=== PATIENT | female | born 1975 | race African-American/Black ===

== ENCOUNTER 2020-12-29 21:00 | Inpatient (IN) | payer OTHER ==
[~2020-12-29] VITALS: Ht 162.6 cm; Wt 53.2 kg
[~2020-12-29 21:00] MED LIST: FERR325T14 PO
[2020-12-29 21:15] VITALS: BP 116/76
[2020-12-29 21:30] VITALS: BP 116/76
[2020-12-29] MEDS ORDERED: OXYC1TAB22 PO (21:35)
[2020-12-29] MEDS ORDERED: AMLO-186 PO (21:35)
[2020-12-29] MEDS ORDERED: OXYC10TA46 PO (21:35)
[2020-12-29] MEDS ORDERED: MELO7.5T29 PO (21:35)
[2020-12-29 21:45] VITALS: BP 103/75
[2020-12-29 22:00] VITALS: BP 116/66
[2020-12-29 23:00] VITALS: BP 99/63
[2020-12-30] VITALS (13 sets, daily range): BP systolic 88–114; BP diastolic 54–73
[2020-12-30] MEDS: fentaNYL PF VIAL 100 MCG/2 ML VIAL IVP PRN ×2 (00:22→20:40)
--- NOTE | 2020-12-30 00:56 | NUR ---
Admission Note: Pt admitted to room 111 from [facility] after getting chest tube placed in R chest. Pt pleasant, alert and oriented x 4. Some pain at the chest tube insertion site. Ct to -20 suction, serosanguineous fluid. Gastric drain in place in right lower abdomen, per patient she drains it at home every 4-5 days. L SC Portacath accessed prior to arrival by [facility]. Dr. Keene notified of patients arrival and orders received.
[2020-12-30 06:10] LABS: BASO % 1 % (0-3); EOS # 0.1 x10^3/uL (0.0-0.7); EOS % 3 % (0-3); HEMATOCRIT 25.9 % (36.0-47.0); HEMOGLOBIN 8.6 g/dL (12.0-15.5); LYMPH # 0.3 x10^3/uL (1.0-4.8); LYMPH % 15 % (24-48); MEAN CORPUSCULAR HEMOGLOBIN 29 pg (25-35); MEAN CORPUSCULAR HGB CONC 33 g/dL (31-37); MEAN CORPUSCULAR VOLUME 88 fL (79-100); MONO # 0.2 x10^3/uL (0.0-1.1); MONO % 14 % (0-9); NEUT # 1.1 x10^3/uL (1.8-7.7); NEUT % 66 % (31-73); PLATELET COUNT 217 x10^3/uL (140-400); RED BLOOD COUNT 2.93 x10^6/uL (3.50-5.40); RED CELL DISTRIBUTION WIDTH 20.7 % (11.5-14.5)
[2020-12-30 06:15] LABS: WHITE BLOOD COUNT 1.7 x10^3/uL (4.0-11.0)
[2020-12-30 06:27] LABS: ALBUMIN/GLOBULIN RATIO 0.6 (1.0-1.7); CALCIUM 8.1 mg/dL (8.5-10.1); CREATININE 0.7 mg/dL (0.6-1.0); GFR 109.5; POTASSIUM 3.3 mmol/L (3.5-5.1); TOTAL BILIRUBIN 0.3 mg/dL (0.2-1.0); TOTAL PROTEIN 5.1 g/dL (6.4-8.2)
--- NOTE | 2020-12-30 08:25 | PDOC ---
PULMONARY PROGRESS NOTES DATE: 12/30/20 TIME: 08:24 Vitals Vital Signs Date Time Temp Pulse Resp B/P (MAP) Pulse Ox O2 Delivery O2 Flow Rate FiO2 12/30/20 07:00 94 18 99/62 (74) 97 Room Air 12/30/20 06:00 2.0 12/30/20 04:00 98.3 98.3 Labs Laboratory Tests Test 12/30/20 05:55 White Blood Count 1.7 x10^3/uL (4.0-11.0) Red Blood Count 2.93 x10^6/uL (3.50-5.40) Hemoglobin 8.6 g/dL (12.0-15.5) Hematocrit 25.9 % (36.0-47.0) Mean Corpuscular Volume 88 fL (79-100) Mean Corpuscular Hemoglobin 29 pg (25-35) Mean Corpuscular Hemoglobin Concent 33 g/dL (31-37) Red Cell Distribution Width 20.7 % (11.5-14.5) Platelet Count 217 x10^3/uL (140-400) Neutrophils (%) (Auto) 66 % (31-73) Lymphocytes (%) (Auto) 15 % (24-48) Monocytes (%) (Auto) 14 % (0-9) Eosinophils (%) (Auto) 3 % (0-3) Basophils (%) (Auto) 1 % (0-3) Neutrophils # (Auto) 1.1 x10^3/uL (1.8-7.7) Lymphocytes # (Auto) 0.3 x10^3/uL (1.0-4.8) Monocytes # (Auto) 0.2 x10^3/uL (0.0-1.1) Eosinophils # (Auto) 0.1 x10^3/uL (0.0-0.7) Basophils # (Auto) 0.0 x10^3/uL (0.0-0.2) Sodium Level 136 mmol/L (136-145) Potassium Level 3.3 mmol/L (3.5-5.1) Chloride Level 104 mmol/L (98-107) Carbon Dioxide Level 23 mmol/L (21-32) Anion Gap 9 (6-14) Blood Urea Nitrogen 15 mg/dL (7-20) Creatinine 0.7 mg/dL (0.6-1.0) Estimated GFR (Cockcroft-Gault) 109.5 BUN/Creatinine Ratio 21 (6-20) Glucose Level 92 mg/dL (70-99) Calcium Level 8.1 mg/dL (8.5-10.1) Total Bilirubin 0.3 mg/dL (0.2-1.0) Aspartate Amino Transf (AST/SGOT) 18 U/L (15-37) Alanine Aminotransferase (ALT/SGPT) 17 U/L (14-59) Alkaline Phosphatase 105 U/L (46-116) Total Protein 5.1 g/dL (6.4-8.2) Albumin 2.0 g/dL (3.4-5.0) Albumin/Globulin Ratio 0.6 (1.0-1.7) Laboratory Tests Test 12/30/20 05:55 White Blood Count 1.7 x10^3/uL (4.0-11.0) Red Blood Count 2.93 x10^6/uL (3.50-5.40) Hemoglobin 8.6 g/dL (12.0-15.5) Hematocrit 25.9 % (36.0-47.0) Mean Corpuscular Volume 88 fL (79-100) Mean Corpuscular Hemoglobin 29 pg (25-35) Mean Corpuscular Hemoglobin Concent 33 g/dL (31-37) Red Cell Distribution Width 20.7 % (11.5-14.5) Platelet Count 217 x10^3/uL (140-400) Neutrophils (%) (Auto) 66 % (31-73) Lymphocytes (%) (Auto) 15 % (24-48) Monocytes (%) (Auto) 14 % (0-9) Eosinophils (%) (Auto) 3 % (0-3) Basophils (%) (Auto) 1 % (0-3) Neutrophils # (Auto) 1.1 x10^3/uL (1.8-7.7) Lymphocytes # (Auto) 0.3 x10^3/uL (1.0-4.8) Monocytes # (Auto) 0.2 x10^3/uL (0.0-1.1) Eosinophils # (Auto) 0.1 x10^3/uL (0.0-0.7) Basophils # (Auto) 0.0 x10^3/uL (0.0-0.2) Sodium Level 136 mmol/L (136-145) Potassium Level 3.3 mmol/L (3.5-5.1) Chloride Level 104 mmol/L (98-107) Carbon Dioxide Level 23 mmol/L (21-32) Anion Gap 9 (6-14) Blood Urea Nitrogen 15 mg/dL (7-20) Creatinine 0.7 mg/dL (0.6-1.0) Estimated GFR (Cockcroft-Gault) 109.5 BUN/Creatinine Ratio 21 (6-20) Glucose Level 92 mg/dL (70-99) Calcium Level 8.1 mg/dL (8.5-10.1) Total Bilirubin 0.3 mg/dL (0.2-1.0) Aspartate Amino Transf (AST/SGOT) 18 U/L (15-37) Alanine Aminotransferase (ALT/SGPT) 17 U/L (14-59) Alkaline Phosphatase 105 U/L (46-116) Total Protein 5.1 g/dL (6.4-8.2) Albumin 2.0 g/dL (3.4-5.0) Albumin/Globulin Ratio 0.6 (1.0-1.7) Medications Active Scripts Medications Dose Route/Sig Max Daily Dose Days Date Category Percocet 10-325 Mg Tablet (Oxycodone/Acetaminophen) 1 Each Tablet 1 Tab PO PRN Q4-6HRS PRN MDD 6 Tablet(s) 5 12/29/20 Reported Oxycontin (Oxycodone HCl) 10 Mg Tab.er.12h 1 Tab PO PRN 2-3XD PRN MDD 3 Tablet(s) 30 12/29/20 Reported Amlodipine Besylate 5 Mg Tablet Unknown Dose PO DAILY 12/29/20 Reported Meloxicam 7.5 Mg Tablet Unknown Dose PO DAILY 30 12/29/20 Reported Ferrous Sulfate 325 Mg Tablet 1 Tab PO DAILY 10/16/13 Reported Impression . Full consult dictated See orders Discussed with Dr. Guzman Stage IV breast cancer ILENE NIEVES MD Dec 30, 2020 08:25
[2020-12-30] MEDS: oxyCODONE/APAP 10/325 1 TAB TABLET PO PRN ×3 (09:54→22:17)
[2020-12-30] MEDS: CEFEPIME HCL IV Push 1 GM VIAL. IVP SCH ×3 (10:34→22:16)
[2020-12-30 10:41] LABS: % EOS 3 % (0-5); % LYMPHS 14 % (24-48); % MONOS 14 % (0-10)
[2020-12-30 10:42] LABS: % SEGS 69 % (35-66); ANISOCYTOSIS MOD; PLT ESTIMATE ADEQUATE (ADEQUATE)
--- NOTE | 2020-12-30 10:42 | CONS ---
DATE OF CONSULTATION: 12/30/2020 ATTENDING PHYSICIAN: Naresh Keene MD CONSULTING PHYSICIAN: Lona Alfaro MD REASON FOR CONSULTATION: The patient is seen in Pulmonary consultation at the request of Dr. Keene for a CT chest revealing a large effusion, chest tube placement, history of breast cancer. HISTORY OF PRESENT ILLNESS: The patient is a 45-year-old who is somewhat of a poor historian. She has a history of breast cancer. She has had no surgery. She is receiving radiation. Apparently, she is currently undergoing chemotherapy at [facility]. She presented to [facility] with increasing shortness of breath. Chest x-ray confirmed a large left-sided effusion. Subsequently, the patient underwent a CT chest. I reviewed the CT chest, which revealed several findings including large pleural effusion. She had no evidence of pulmonary emboli. There was a large effusion with atelectasis. There were numerous hypodense lesions in the liver, favoring metastatic disease. There was intra-abdominal ascites. The patient is currently in the Intensive Care Unit at [facility]. She was transferred for management. She has a chest tube in place, which has drained approximately 1500 mL of fluid. She now feels better. She has a cough, mostly nonproductive. She states that she smoked right up until the day that she was diagnosed with breast cancer. PAST MEDICAL HISTORY: Suspect COPD, tobacco dependence, in remission, history of breast cancer, status post radiation and currently undergoing chemotherapy. She also has a history of neurofibromatosis. PAST SURGICAL HISTORY: No recent major surgeries. She now has a chest tube in place. REVIEW OF SYSTEMS: CONSTITUTIONAL: No fever or chills. EYES: No change in visual acuity. HENT: No nasal congestion or sore throat. PULMONARY: As indicated above. CARDIOVASCULAR: No chest pain, no pressure. GASTROINTESTINAL: No nausea, vomiting or diarrhea. GENITOURINARY: No dysuria or frequency. MUSCULOSKELETAL: No localized muscle aches or joint pains. SKIN: No new skin rashes. She has evidence of neurofibromatosis. NEUROLOGIC: The patient was awake, alert, following commands. A detailed neuro exam was not performed. MEDICATIONS: List was reviewed. ALLERGIES: No known drug allergies. FAMILY HISTORY: Noncontributory. PHYSICAL EXAMINATION: VITAL SIGNS: Stable. O2 saturation was greater than 92%, currently on room air saturation 97%. HEENT: Eyes: The sclerae were nonicteric. NECK: Jugular venous distention was not elevated. No lymphadenopathy. CHEST: Full expansion. LUNGS: Diminished breath sounds in the bases. No wheezes. CARDIOVASCULAR: Regular rate and rhythm with S1, S2, no S3. ABDOMEN: Soft. EXTREMITIES: No clubbing, cyanosis or edema. LABORATORY DATA: White count was low. Hemoglobin and hematocrit were noted to be low. Electrolytes were noted. BUN and creatinine were normal. Albumin was 2.0. IMPRESSION: 1. Acute hypoxemic respiratory failure secondary to malignant pleural effusion. 2. Malignant pleural effusion related to breast cancer, status post chest tube placement. 3. Stage 4 breast cancer. 4. Neurofibromatosis. 5. Leukopenia. 6. Hypokalemia. PLAN: 1. We will continue chest tube in place. Possible instillation of talc if pleural fluid drains less than 200 in 24 hours. 2. We will add Empiric antibiotics. 3. Replace potassium. 4. Above was discussed with Dr. Keene. In addition to the above, we will require old records from [facility]. PANCHO DR: Damián TID: [id number]
[2020-12-30 10:43] LABS: POLYCHROMASIA OCCASIONAL; TEAR DROP CELLS FEW
--- NOTE | 2020-12-30 10:45 | PN ---
DATE: 12/30/2020 SUBJECTIVE: The patient is resting almost flat in bed, in no apparent respiratory distress. She continued to have some chest discomfort, may take a deep breath, but denied any shortness of breath. Denied any cough or phlegm. Denied any chills, rigors or fever. PHYSICAL EXAMINATION: GENERAL: When I examined her, she was pale, but no jaundice, cyanosis, no lymphadenopathy, no thyromegaly, no jugular venous distention. No limb edema. VITAL SIGNS: Her heart rate was 94, blood pressure was 108/73, temperature was 98.8, respiratory rate was 16 and oxygen saturation was 96% on 2 liters of oxygen. HEAD, EYES, EARS, NOSE, AND THROAT: Normocephalic, atraumatic. NECK: Supple. HEART: Showed normal first and second heart sounds, no gallop or murmur. CHEST: Showed central trachea. Good chest expansion with air entry on the left side. Better air entry on the right side anteriorly. The patient continued to have dull percussion noted and absent breath sounds posteriorly. ABDOMEN: She has a chest tube on the right side and has also PleurX in her abdomen. The abdomen is distended with some tenderness in the right upper quadrant, no guarding or rigidity. No organomegaly. All hernial orifice intact. Bowel sounds normal. NEUROLOGIC: She was awake, alert, responding appropriately. Cranial nerves intact. She moves extremities without difficulty. She has SCDs in place. LABORATORY DATA: Her lab work this morning showed a white cell count of 1700, hemoglobin 8.6, hematocrit 25.9, MCV 88 and platelet count 217,000. Her serum sodium was 136, potassium 3.3, chloride 104, bicarbonate 23, anion gap of 9, BUN 15, creatinine 0.7. Estimated GFR was 109 mL per minute. Her glucose was 92, calcium was 8.1. Total bilirubin, AST, ALT, alkaline phosphatase were normal. Total protein was 5.1, albumin 2. ASSESSMENT: This is a 45-year-old -Greek female patient with stage 4 metastatic breast cancer with metastases to the bone and liver. 1. Large right sided pleural effusion, probably malignant as well as ascites which she has also PleurX. 2. Hypertension. 3. Neurofibromatosis. 4. She has history of DVT for which she has an IVC filter. Given the suspicion of perhaps infection and enhancement of the peritoneal fluid on the CT scan of the chest, abdomen and pelvis done at [facility], we drained some of the peritoneal fluid and send it for cell count, differential, body fluid protein and sugar as well as cytology. The patient was already seen by the supervisor baking. RAMSES DR: Dewey TID: [id number]
--- NOTE | 2020-12-30 11:08 | HP ---
DATE OF SERVICE: 12/30/2020 ADMIT DATE: 12/29/2020 HISTORY OF PRESENT ILLNESS: The patient is a 45-year-old -[place] female patient who presented to the Emergency Room of [facility] with a complaint of shortness of breath, cough with scanty whitish sputum, generalized weakness, chest discomfort, especially when she coughs or takes a deep breath. She denied any chest pain. Denied any fever or chills. She has breast cancer with metastases for which she is receiving chemotherapy at [facility] and the last time she received the treatment was a month ago. She was extensively evaluated in the Emergency Room of [facility], had lab work and imaging studies. Her chest x-ray showed that she has right basilar pleural drain that is internally placed. She has unchanged large right pleural effusion associated with collapsed right lung. No pneumothorax, similar diffuse left pulmonary infiltrate, no acute osseous process, partially visualized peritoneal dialysis catheter with the tip in the left upper abdomen. Her lab work showed that she has pancytopenia with leukopenia, normochromic normocytic anemia, although her platelet count are normal. She had had a chest tube placed by the ER physician and was transferred to [facility] for further evaluation and treatment. PAST MEDICAL HISTORY: Significant for: 1. Breast cancer with metastases, treated with chemotherapy. 2. Hypertension. 3. History of DVT for which she has an IVC filter placed and neurofibromatosis. PAST SURGICAL HISTORY: Significant for appendectomy, total abdominal hysterectomy without oophorectomy, also has an IVC filter placed. ALLERGIES: She has no known drug allergies. MEDICATIONS: She is currently on the following medication: She is on amlodipine and according to her, losartan. FAMILY HISTORY: Noncontributory. SOCIAL HISTORY: She is . She has 1 daughter who apparently also diagnosed with neurofibromatosis. She quit smoking 2 years ago. She does not drink alcohol or recreational drugs. She is currently on disability. She did work in restaurants and other facilities. REVIEW OF SYSTEMS: As per history of present illness. PHYSICAL EXAMINATION: GENERAL: On arrival to the Emergency Room, the patient looked pale, not cachectic, but no jaundice, cyanosis or thyromegaly. No jugular venous distention. No lower limb edema. VITAL SIGNS: Her heart rate was 90, blood pressure was 104/69, temperature was 98.7, respiratory rate was 20 and oxygen saturation was 99% on 2 liters of oxygen. HEAD, EYES, EARS, NOSE, AND THROAT: Showed normocephalic, atraumatic. NECK: Supple. HEART: Showed normal first and second heart sounds. No gallop, rub or murmur. CHEST: Showed central trachea, dull percussion noted and absent breath sounds on the right side. Good air entry. Chest expansion and vesicular breath sounds on the left side. ABDOMEN: Distended with mild tenderness in epigastric and right upper quadrant. There is no guarding or rigidity. No organomegaly. All hernial orifices are intact. Bowel sounds normal. NEUROLOGIC: She is awake, alert, responding appropriately. She moves all extremities without difficulty, although she has marked muscle wasting. SKIN: Showed that she has obvious neurofibromatosis with nodules all over her body including the face and upper and lower extremities and torso. LABORATORY DATA: Her lab work on arrival showed a white cell count of 3400, hemoglobin 9, hematocrit 29, MCV 90 and platelet count 229,000 with a manual differential showed 63% polymorphs, 18% lymphocytes and 15% monocytes. Her serum sodium was 134, potassium 3.8, chloride 101, bicarbonate 20, anion gap of 13, BUN 23, creatinine 1.1. Estimated GFR was 65 mL per minute. Her glucose was 101, calcium was 8.9, magnesium 2.3. Total bilirubin, AST, ALT were normal. Alkaline phosphatase are elevated. Her troponin was 5, total protein was 6.2, albumin was 2.9. Her chest x-ray showed the patient has right basilar pleural drain that is internally placed, unchanged large right-sided pleural effusion associated with collapsed right lung. No pneumothorax. Similar diffuse left pulmonary infiltrate. No acute osseous process, partially visualized peritoneal dialysis catheter with the tip in the left upper abdomen. She did have CT scan of the chest, abdomen and pelvis, which showed no pulmonary embolus identified within the main lobar or segmental pulmonary arteries. She has large right-sided pleural effusion causing complete atelectasis of the right lung. There is a small to moderate sized left pleural effusion with adjacent atelectasis. She has moderate amount of intraabdominal ascites with some mild peritoneal enhancement correlate for infection, findings of diffuse osseous metastatic disease. ASSESSMENT AND PLAN: The patient was started on IV levofloxacin and has had a chest tube placed successfully and was transferred to [facility] to consult the scientific illustrator for further evaluation and treatment. KAMI DR: Dewey TID: [id number]
[2020-12-30 15:12] LABS: BF CLARITY TURBID; BF COLOR YELLOW; BF PMN % 14 %; BF RBC COUNT 1061 /cmm (Not Established); BF SOURCE PERITONEAL; BF WBC COUNT 207 /cmm (Not Established)
[2020-12-30 15:27] LABS: BF MON % 86 %
--- NOTE | 2020-12-30 15:35 | NUR ---
SS following for discharge planning. SS reviewed pt chart and discussed with pt RN. pt is from home and is currently requiring oxygen at two liters nasal canula. Pulmonology following. Chest tube in place. Pt has cancer. Pt has peritoneal drain. Pt on IV Cefepime. SS will continue to follow for discharge planning.
--- NOTE | 2020-12-30 15:58 | NUR ---
Wound Care Wound Type/Assessment: Consult to eval and treat for toe wounds. Pt denies being diabetic. She has a skin condition causing skin tags all over her body. Pt states that sometimes the tags between her toes "get to acting up," meaning that they become moist and macerated and split the skin between her toes. There are 3 such wounds located between her R great/2nd, R 2nd/3rd, and L Great/2nd toes. Wounds pictured and measured. All wound bases are pale pink with minimal slough, moist and macerated at the periwound. No other wounds noted on head to toe assessment. Treatment Recommendations/Plan: To L and R affected toes: Apply strip of ioplex between toes, secure with gauze and tape. Change every other day Education provided: Pt educated to turn periodically to prevent skin breakdown. Advised to keep between toes dry. Offloading surface/device: ICU bed. Pt declined to be repositioned. 2 female family members at bedside. Recommended Referrals/Tests: NA Discharge Recommendations for dressings: As above
[2020-12-30] MEDS: POTASSIUM CHLORIDE 20 MEQ TABLET.ER. PO SCH ×2 (16:39→18:56)
[2020-12-31 03:27] LABS: HEMOGLOBIN 8.6 g/dL (12.0-15.5); RED BLOOD COUNT 2.95 x10^6/uL (3.50-5.40); RED CELL DISTRIBUTION WIDTH 20.4 % (11.5-14.5)
[2020-12-31 03:35] LABS: WHITE BLOOD COUNT 1.6 x10^3/uL (4.0-11.0)
[2020-12-31 03:36] VITALS: BP_SYST 105; BP_SYST 124; BP_DIAS 44; BP_DIAS 69
[2020-12-31] MEDS: oxyCODONE/APAP 10/325 1 TAB TABLET PO PRN ×2 (03:46→20:11)
[2020-12-31 03:55] LABS: ALBUMIN 1.8 g/dL (3.4-5.0); ALBUMIN/GLOBULIN RATIO 0.6 (1.0-1.7); CALCIUM 7.6 mg/dL (8.5-10.1); CREATININE 0.8 mg/dL (0.6-1.0); GFR 93.9; POTASSIUM 4.8 mmol/L (3.5-5.1); TOTAL BILIRUBIN 0.3 mg/dL (0.2-1.0); TOTAL PROTEIN 4.9 g/dL (6.4-8.2)
[2020-12-31] MEDS: CEFEPIME HCL IV Push 1 GM VIAL. IVP SCH ×3 (05:46→22:15)
--- NOTE | 2020-12-31 05:52 | PDOC ---
PULMONARY PROGRESS NOTES DATE: 12/31/20 TIME: 05:50 Subjective has chest wall pain no sob Vitals Vital Signs Date Time Temp Pulse Resp B/P (MAP) Pulse Ox O2 Delivery O2 Flow Rate FiO2 12/31/20 04:36 Nasal Cannula 2.0 12/31/20 03:36 97.9 85 16 105/69 (81) 93 97.9 ROS: No Nausea General: Alert HEENT: Other (nc at perrl ) Lungs: Other (r ct ) Cardiovascular: S1, S2 Abdomen: Soft Neuro Exam: Alert Extremities: No Edema Skin: Warm Labs Laboratory Tests Test 12/30/20 05:55 12/30/20 10:40 12/31/20 03:15 White Blood Count 1.7 x10^3/uL (4.0-11.0) 1.6 x10^3/uL (4.0-11.0) Red Blood Count 2.93 x10^6/uL (3.50-5.40) 2.95 x10^6/uL (3.50-5.40) Hemoglobin 8.6 g/dL (12.0-15.5) 8.6 g/dL (12.0-15.5) Hematocrit 25.9 % (36.0-47.0) 26.0 % (36.0-47.0) Mean Corpuscular Volume 88 fL (79-100) 88 fL (79-100) Mean Corpuscular Hemoglobin 29 pg (25-35) 29 pg (25-35) Mean Corpuscular Hemoglobin Concent 33 g/dL (31-37) 33 g/dL (31-37) Red Cell Distribution Width 20.7 % (11.5-14.5) 20.4 % (11.5-14.5) Platelet Count 217 x10^3/uL (140-400) 239 x10^3/uL (140-400) Neutrophils (%) (Auto) 66 % (31-73) Lymphocytes (%) (Auto) 15 % (24-48) Monocytes (%) (Auto) 14 % (0-9) Eosinophils (%) (Auto) 3 % (0-3) Basophils (%) (Auto) 1 % (0-3) Neutrophils # (Auto) 1.1 x10^3/uL (1.8-7.7) Lymphocytes # (Auto) 0.3 x10^3/uL (1.0-4.8) Monocytes # (Auto) 0.2 x10^3/uL (0.0-1.1) Eosinophils # (Auto) 0.1 x10^3/uL (0.0-0.7) Basophils # (Auto) 0.0 x10^3/uL (0.0-0.2) Segmented Neutrophils % 69 % (35-66) Lymphocytes % 14 % (24-48) Monocytes % 14 % (0-10) Eosinophils % 3 % (0-5) Platelet Estimate Adequate (ADEQUATE) Polychromasia Occasional Basophilic Stippling Present Anisocytosis Mod Tear Drop Cells Few Sodium Level 136 mmol/L (136-145) 138 mmol/L (136-145) Potassium Level 3.3 mmol/L (3.5-5.1) 4.8 mmol/L (3.5-5.1) Chloride Level 104 mmol/L (98-107) 108 mmol/L (98-107) Carbon Dioxide Level 23 mmol/L (21-32) 25 mmol/L (21-32) Anion Gap 9 (6-14) 5 (6-14) Blood Urea Nitrogen 15 mg/dL (7-20) 14 mg/dL (7-20) Creatinine 0.7 mg/dL (0.6-1.0) 0.8 mg/dL (0.6-1.0) Estimated GFR (Cockcroft-Gault) 109.5 93.9 BUN/Creatinine Ratio 21 (6-20) 18 (6-20) Glucose Level 92 mg/dL (70-99) 92 mg/dL (70-99) Calcium Level 8.1 mg/dL (8.5-10.1) 7.6 mg/dL (8.5-10.1) Total Bilirubin 0.3 mg/dL (0.2-1.0) 0.3 mg/dL (0.2-1.0) Aspartate Amino Transf (AST/SGOT) 18 U/L (15-37) 15 U/L (15-37) Alanine Aminotransferase (ALT/SGPT) 17 U/L (14-59) 13 U/L (14-59) Alkaline Phosphatase 105 U/L (46-116) 100 U/L (46-116) Total Protein 5.1 g/dL (6.4-8.2) 4.9 g/dL (6.4-8.2) Albumin 2.0 g/dL (3.4-5.0) 1.8 g/dL (3.4-5.0) Albumin/Globulin Ratio 0.6 (1.0-1.7) 0.6 (1.0-1.7) Body Fluid Source Peritoneal Body Fluid Color Yellow Body Fluid Clarity Turbid Body Fluid Nucleated Cells 207 /cmm (Not Established) Body Fluid Mononuclear WBCs (%) 86 % Body Fluid Polymorphonuclear Cells 14 % Body Fluid Total RBCs Counted 1061 /cmm (Not Established) Laboratory Tests Test 12/30/20 05:55 12/30/20 10:40 12/31/20 03:15 White Blood Count 1.7 x10^3/uL (4.0-11.0) 1.6 x10^3/uL (4.0-11.0) Red Blood Count 2.93 x10^6/uL (3.50-5.40) 2.95 x10^6/uL (3.50-5.40) Hemoglobin 8.6 g/dL (12.0-15.5) 8.6 g/dL (12.0-15.5) Hematocrit 25.9 % (36.0-47.0) 26.0 % (36.0-47.0) Mean Corpuscular Volume 88 fL (79-100) 88 fL (79-100) Mean Corpuscular Hemoglobin 29 pg (25-35) 29 pg (25-35) Mean Corpuscular Hemoglobin Concent 33 g/dL (31-37) 33 g/dL (31-37) Red Cell Distribution Width 20.7 % (11.5-14.5) 20.4 % (11.5-14.5) Platelet Count 217 x10^3/uL (140-400) 239 x10^3/uL (140-400) Neutrophils (%) (Auto) 66 % (31-73) Lymphocytes (%) (Auto) 15 % (24-48) Monocytes (%) (Auto) 14 % (0-9) Eosinophils (%) (Auto) 3 % (0-3) Basophils (%) (Auto) 1 % (0-3) Neutrophils # (Auto) 1.1 x10^3/uL (1.8-7.7) Lymphocytes # (Auto) 0.3 x10^3/uL (1.0-4.8) Monocytes # (Auto) 0.2 x10^3/uL (0.0-1.1) Eosinophils # (Auto) 0.1 x10^3/uL (0.0-0.7) Basophils # (Auto) 0.0 x10^3/uL (0.0-0.2) Segmented Neutrophils % 69 % (35-66) Lymphocytes % 14 % (24-48) Monocytes % 14 % (0-10) Eosinophils % 3 % (0-5) Platelet Estimate Adequate (ADEQUATE) Polychromasia Occasional Basophilic Stippling Present Anisocytosis Mod Tear Drop Cells Few Sodium Level 136 mmol/L (136-145) 138 mmol/L (136-145) Potassium Level 3.3 mmol/L (3.5-5.1) 4.8 mmol/L (3.5-5.1) Chloride Level 104 mmol/L (98-107) 108 mmol/L (98-107) Carbon Dioxide Level 23 mmol/L (21-32) 25 mmol/L (21-32) Anion Gap 9 (6-14) 5 (6-14) Blood Urea Nitrogen 15 mg/dL (7-20) 14 mg/dL (7-20) Creatinine 0.7 mg/dL (0.6-1.0) 0.8 mg/dL (0.6-1.0) Estimated GFR (Cockcroft-Gault) 109.5 93.9 BUN/Creatinine Ratio 21 (6-20) 18 (6-20) Glucose Level 92 mg/dL (70-99) 92 mg/dL (70-99) Calcium Level 8.1 mg/dL (8.5-10.1) 7.6 mg/dL (8.5-10.1) Total Bilirubin 0.3 mg/dL (0.2-1.0) 0.3 mg/dL (0.2-1.0) Aspartate Amino Transf (AST/SGOT) 18 U/L (15-37) 15 U/L (15-37) Alanine Aminotransferase (ALT/SGPT) 17 U/L (14-59) 13 U/L (14-59) Alkaline Phosphatase 105 U/L (46-116) 100 U/L (46-116) Total Protein 5.1 g/dL (6.4-8.2) 4.9 g/dL (6.4-8.2) Albumin 2.0 g/dL (3.4-5.0) 1.8 g/dL (3.4-5.0) Albumin/Globulin Ratio 0.6 (1.0-1.7) 0.6 (1.0-1.7) Body Fluid Source Peritoneal Body Fluid Color Yellow Body Fluid Clarity Turbid Body Fluid Nucleated Cells 207 /cmm (Not Established) Body Fluid Mononuclear WBCs (%) 86 % Body Fluid Polymorphonuclear Cells 14 % Body Fluid Total RBCs Counted 1061 /cmm (Not Established) Medications Active Scripts Medications Dose Route/Sig Max Daily Dose Days Date Category Percocet 10-325 Mg Tablet (Oxycodone/Acetaminophen) 1 Each Tablet 1 Tab PO PRN Q4-6HRS PRN MDD 6 Tablet(s) 5 12/29/20 Reported Oxycontin (Oxycodone HCl) 10 Mg Tab.er.12h 1 Tab PO PRN 2-3XD PRN MDD 3 Tablet(s) 30 12/29/20 Reported Amlodipine Besylate 5 Mg Tablet Unknown Dose PO DAILY 12/29/20 Reported Meloxicam 7.5 Mg Tablet Unknown Dose PO DAILY 30 12/29/20 Reported Ferrous Sulfate 325 Mg Tablet 1 Tab PO DAILY 10/16/13 Reported Comments cxr reviewed r ct small effusion Impression . IMPRESSION: 1. Acute hypoxemic respiratory failure secondary to malignant pleural effusion. 2. Malignant pleural effusion related to breast cancer, status post chest tube placement. 3. Stage 4 breast cancer. 4. Neurofibromatosis. 5. Leukopenia. 6. Hypokalemia. Plan . PLAN: 1. continue chest tube in place. ct drainage 200 cc talc when pleural fluid drains less than 200 2. Empiric antibiotics. 3. Replace potassium. 4. pain control Above was discussed with pt and QUIQUE Hassan MD Dec 31, 2020 05:52
--- NOTE | 2020-12-31 06:19 | RAD ---
XR CHEST 1V 12/31/2020 6:13 AM INDICATION: Shortness of breath, pleural effusion COMPARISON: 12/29/2020 TECHNIQUE: Portable frontal view of the chest is provided. FINDINGS: The cardiomediastinal silhouette is similar in appearance. There is significant improvement in right- sided pleural effusion with trace residual pleural fluid. Right-sided thoracostomy tube is in similar position. Left chest wall infusion port catheter is in similar position. There is a catheter identified projecting over the right hemiabdomen. There is an additional catheter identified projecting over the left upper quadrant abdomen. No new airspace consolidation. Mild jaqui hilar interstitial changes appears stable. No suspicious osseous abnormality. IMPRESSION: There is significant improvement in right-sided pleural effusion with trace residual right pleural ef fusion. No pneumothorax. Stable support tubes and lines. Electronically signed by: Kathie Steele MD (12/31/2020 6:17 AM) [facility]
[2020-12-31 07:00] VITALS: BP 95/60
--- NOTE | 2020-12-31 09:32 | PN ---
DATE: 12/31/2020 SUBJECTIVE: The patient is resting, slightly propped up in bed, in no apparent distress. On questioning her, she denied any shortness of breath, cough or phlegm. Did have chronic back pain. She continued to have right-sided chest tube to underwater seal. However, her chest x-ray showed that her right lung is completely expanded and all the pleural effusion has been completely drained. We sent also ascitic fluids for analysis which showed that the peritoneal fluid was yellow, turbid with total nucleated cells of 207, it's 6% were mononuclear wbc's and only 14% are polymorphonuclear, making peritonitis less likely. Her chemistry showed her potassium has improved to 4.8 and her CBC showed her white cell count is worsening. Her total white cell count is only 1600. She has normochromic normocytic anemia. Her platelets are normal. ASSESSMENT AND PLAN: 1. Stage 4 metastatic breast cancer, metastasis to the lung, to the bones and liver. 2. Large right sided pleural effusion, probably malignant as well as ascites, for which she has PleurX. 3. Hypertension. 4. Neurofibromatosis. 5. She has a history of DVT, for which she has an IVC filter. 6. Her right sided pleural effusion was completely drained. Her ascitic fluid did not show any evidence of peritonitis. However, her leukopenia is worsening and we did consult Dr. Rios to assist with management. We will send also the ascitic fluids for malignancy. RAMSES DR: Dewye TID: [id number]
[2020-12-31 11:00] VITALS: BP 102/66
[2020-12-31 14:00] VITALS: BP 117/76
[2020-12-31 19:00] VITALS: BP 114/80
[2020-12-31 23:00] VITALS: BP 101/69
[2021-01-01 03:00] VITALS: BP 103/42
[2021-01-01] MEDS: CEFEPIME HCL IV Push 1 GM VIAL. IVP SCH ×3 (06:31→22:39)
--- NOTE | 2021-01-01 06:37 | PDOC ---
PULMONARY PROGRESS NOTES DATE: 01/01/21 TIME: 06:35 Subjective denies sob pain is tired ct drainage a little over 200cc marked ct drainage on pleurovac yesterday Vitals Vital Signs Date Time Temp Pulse Resp B/P (MAP) Pulse Ox O2 Delivery O2 Flow Rate FiO2 01/01/21 03:00 97.9 76 18 103/42 (62) 97 97.9 12/31/20 20:41 Room Air 12/31/20 08:00 2.0 ROS: No Nausea General: Alert HEENT: Other (nc at perr ) Lungs: Other (r ct ) Cardiovascular: S1, S2 Abdomen: Soft Neuro Exam: Alert Extremities: No Edema Skin: Warm Labs Laboratory Tests Test 12/30/20 10:40 12/31/20 03:15 Body Fluid Source Peritoneal Body Fluid Color Yellow Body Fluid Clarity Turbid Body Fluid Nucleated Cells 207 /cmm (Not Established) Body Fluid Mononuclear WBCs (%) 86 % Body Fluid Polymorphonuclear Cells 14 % Body Fluid Total RBCs Counted 1061 /cmm (Not Established) Body Fluid Glucose 86 mg/dL (.) Body Fluid Total Protein 3.2 g/dL (.) White Blood Count 1.6 x10^3/uL (4.0-11.0) Red Blood Count 2.95 x10^6/uL (3.50-5.40) Hemoglobin 8.6 g/dL (12.0-15.5) Hematocrit 26.0 % (36.0-47.0) Mean Corpuscular Volume 88 fL (79-100) Mean Corpuscular Hemoglobin 29 pg (25-35) Mean Corpuscular Hemoglobin Concent 33 g/dL (31-37) Red Cell Distribution Width 20.4 % (11.5-14.5) Platelet Count 239 x10^3/uL (140-400) Sodium Level 138 mmol/L (136-145) Potassium Level 4.8 mmol/L (3.5-5.1) Chloride Level 108 mmol/L (98-107) Carbon Dioxide Level 25 mmol/L (21-32) Anion Gap 5 (6-14) Blood Urea Nitrogen 14 mg/dL (7-20) Creatinine 0.8 mg/dL (0.6-1.0) Estimated GFR (Cockcroft-Gault) 93.9 BUN/Creatinine Ratio 18 (6-20) Glucose Level 92 mg/dL (70-99) Calcium Level 7.6 mg/dL (8.5-10.1) Total Bilirubin 0.3 mg/dL (0.2-1.0) Aspartate Amino Transf (AST/SGOT) 15 U/L (15-37) Alanine Aminotransferase (ALT/SGPT) 13 U/L (14-59) Alkaline Phosphatase 100 U/L (46-116) Total Protein 4.9 g/dL (6.4-8.2) Albumin 1.8 g/dL (3.4-5.0) Albumin/Globulin Ratio 0.6 (1.0-1.7) Medications Active Scripts Medications Dose Route/Sig Max Daily Dose Days Date Category Percocet 10-325 Mg Tablet (Oxycodone/Acetaminophen) 1 Each Tablet 1 Tab PO PRN Q4-6HRS PRN MDD 6 Tablet(s) 5 12/29/20 Reported Oxycontin (Oxycodone HCl) 10 Mg Tab.er.12h 1 Tab PO PRN 2-3XD PRN MDD 3 Tablet(s) 30 12/29/20 Reported Amlodipine Besylate 5 Mg Tablet Unknown Dose PO DAILY 12/29/20 Reported Meloxicam 7.5 Mg Tablet Unknown Dose PO DAILY 30 12/29/20 Reported Ferrous Sulfate 325 Mg Tablet 1 Tab PO DAILY 10/16/13 Reported Comments cxr reviewed r ct small effusion Impression . IMPRESSION: 1. Acute hypoxemic respiratory failure secondary to malignant pleural effusion. 2. Malignant pleural effusion related to breast cancer, status post chest tube placement. 3. Stage 4 breast cancer. 4. Neurofibromatosis. 5. Leukopenia. 6. Hypokalemia. Plan . 01/01 1. continue chest tube in place. ct drainage a little over [address] tubing was kinked corrected w the help of rn and taped talc when pleural fluid drains less than 200 2. Empiric antibiotics. 3. Replace potassium. 4. pain control Above was discussed with pt and rn PLAN: 1. continue chest tube in place. ct drainage 200 cc talc when pleural fluid drains less than 200 2. Empiric antibiotics. 3. Replace potassium. 4. pain control Above was discussed with pt and rn QUIQUE NARVAEZ MD Jan 01, 2021 06:36
[2021-01-01 07:00] VITALS: BP 118/81
--- NOTE | 2021-01-01 07:44 | RAD ---
INDICATION: Reason: effusion / Spl. Instructions: / History: COMPARISON: One day prior FINDINGS: Single view of chest obtained. Left-sided port with tip at the SVC. Partial visualization of a drain at the upper abdomen. Repeat de monstration of right basilar chest tube with blunting of right costophrenic angle which can be seen w ith small residual pleural effusion but significantly decreased when compared to December 29 prior to chest tube placement. Patchy opacities at lung bases. Suspected tiny right apical pneumothorax. Mild blunting of the left costophrenic angle. IMPRESSION: * Right-sided chest tube is again seen with significant decrease in right-sided pleural effusion com pared to preprocedure images. Suspected tiny right apical pneumothorax but this is a common finding w ith an indwelling chest tube and is not of significant size. * Patchy opacities at lung bases which appears increased on the left compared to prior. Could be fro m atelectasis or infiltrate. * Sclerotic lesions within osseous structures again seen Electronically signed by: Brad Michelle MD (01/01/2021 7:42 AM) [id number]
[2021-01-01] MEDS: oxyCODONE/APAP 10/325 1 TAB TABLET PO PRN ×2 (07:50→18:51)
[2021-01-01 07:52] LABS: CALCIUM 7.6 mg/dL (8.5-10.1); CREATININE 0.7 mg/dL (0.6-1.0); GFR 109.5; POTASSIUM 4.1 mmol/L (3.5-5.1)
--- NOTE | 2021-01-01 09:19 | PN ---
DATE: 01/01/2021 SUBJECTIVE: The patient is resting, slightly propped up in bed, in no apparent distress. She is awake, alert. Denied any chest pain or shortness of breath. She does have chronic low back pain and stated that pain medications are helping. Nursing staff did not voice any concerns that she had an uneventful night when chest tube continued to drain yellow, clear fluid. PHYSICAL EXAMINATION: GENERAL: When I examined her, she looked well and was clearly in no apparent respiratory distress. She was pale, not jaundiced, cyanosed or thyromegaly. No jugular venous distention. No lower limb edema. VITAL SIGNS: Her heart rate was 90, blood pressure is 118/81, temperature was 98.3, respiratory rate was 18 and oxygen saturation was 94%. HEAD, EYES, EARS, NOSE, AND THROAT: Normocephalic, atraumatic. NECK: Supple. HEART: Normal first and second heart sounds, no gallop or murmur. CHEST: Showed central trachea, equal bilateral expansion, air entry, vesicular breath sounds. No crepitation or rhonchi. She has chest tube to the right side. ABDOMEN: Distended, soft, nontender. She does have a PleurX in the right upper quadrant. There is no guarding or rigidity. No organomegaly. All hernial orifice intact. Bowel sounds normal. NEUROLOGIC: She was awake, alert, responding appropriately. All cranial nerves intact. She moves extremities without difficulty. SKIN: Her skin shows multiple nodules consistent with her diagnosis of neurofibromatosis. Her intake was 720, output was 1150. LABORATORY DATA: Today's CBC is still pending. Her serum sodium was, however, is 137, potassium 4.1, chloride 106, bicarbonate 23, anion gap of 8, BUN 8, creatinine 0.7. Estimated GFR was 190 mL per minute. Her glucose was 78 and calcium was 7.6. Her ascitic fluid consistent with transudate with no evidence of peritonitis. Her ascitic fluid Gram stain showed no organisms seen. ASSESSMENT: 1. Stage 4 metastatic breast cancer, metastasis to the lungs, to the bone and liver. 2. Large right side pleural effusion, probably malignant as well as ascites, for which she has PleurX. 3. Hypertension. 4. Neurofibromatosis. 5. She has a history of deep venous thrombosis, for which she has an IVC filter. 6. Right-sided pleural effusion has completely drained. Her ascitic fluid did not show any evidence of peritonitis and is transudative in nature. 7. She continued to have leukopenia that is worsening on today's labs, still pending at the time of this dictation. I did consult the Dr. Rios to assist with her management. Plan is to continue with a chest tube, continue with pain management. Continue with empiric antibiotics. GAVIN DR: Dewey TID: [id number]
[2021-01-01 11:28] LABS: BASO % 1 % (0-3); EOS # 0.1 x10^3/uL (0.0-0.7); EOS % 3 % (0-3); HEMATOCRIT 28.2 % (36.0-47.0); HEMOGLOBIN 9.4 g/dL (12.0-15.5); LYMPH # 0.3 x10^3/uL (1.0-4.8); LYMPH % 16 % (24-48); MEAN CORPUSCULAR HEMOGLOBIN 30 pg (25-35); MEAN CORPUSCULAR HGB CONC 33 g/dL (31-37); MEAN CORPUSCULAR VOLUME 88 fL (79-100); MONO # 0.3 x10^3/uL (0.0-1.1); MONO % 17 % (0-9); NEUT # 1.1 x10^3/uL (1.8-7.7); NEUT % 62 % (31-73); PLATELET COUNT 258 x10^3/uL (140-400); RED BLOOD COUNT 3.19 x10^6/uL (3.50-5.40); RED CELL DISTRIBUTION WIDTH 20.6 % (11.5-14.5)
[2021-01-01 11:37] LABS: WHITE BLOOD COUNT 1.8 x10^3/uL (4.0-11.0)
[2021-01-01 15:00] VITALS: BP 138/93
[2021-01-01 19:00] VITALS: BP 115/83
[2021-01-01 22:43] VITALS: BP 119/80
[2021-01-02 03:00] VITALS: BP 122/80
[2021-01-02] MEDS: CEFEPIME HCL IV Push 1 GM VIAL. IVP SCH ×3 (06:01→21:00)
[2021-01-02] MEDS: oxyCODONE/APAP 10/325 1 TAB TABLET PO PRN ×3 (06:11→21:14)
[2021-01-02 07:00] VITALS: BP 112/78
[2021-01-02 07:13] LABS: BASO % 2 % (0-3); EOS # 0.1 x10^3/uL (0.0-0.7); EOS % 4 % (0-3); HEMATOCRIT 28.8 % (36.0-47.0); HEMOGLOBIN 9.6 g/dL (12.0-15.5); LYMPH # 0.3 x10^3/uL (1.0-4.8); LYMPH % 20 % (24-48); MEAN CORPUSCULAR HEMOGLOBIN 29 pg (25-35); MEAN CORPUSCULAR HGB CONC 33 g/dL (31-37); MEAN CORPUSCULAR VOLUME 88 fL (79-100); MONO # 0.3 x10^3/uL (0.0-1.1); MONO % 21 % (0-9); NEUT # 0.8 x10^3/uL (1.8-7.7); NEUT % 53 % (31-73); PLATELET COUNT 259 x10^3/uL (140-400); RED BLOOD COUNT 3.26 x10^6/uL (3.50-5.40); RED CELL DISTRIBUTION WIDTH 20.9 % (11.5-14.5)
[2021-01-02 07:32] LABS: WHITE BLOOD COUNT 1.6 x10^3/uL (4.0-11.0)
--- NOTE | 2021-01-02 08:20 | RAD ---
EXAM: AP View of the chest DATE: 01/02/2021 7:31 AM INDICATION: Right pleural effusion COMPARISON: 01/01/2021 12/31/2020 FINDINGS: The heart is not enlarged. Left port tip terminates within the distal SVC/proximal right atrium. Righ t chest tube is in stable position. Small right pleural effusion. Trace left pleural effusion. Bilate ral lower lung airspace opacities are stable. Drain is seen in the upper abdomen. Scattered sclerotic foci within the osseous structures. IMPRESSION: 1. Bilateral parenchymal opacities and pleural effusions are grossly stable. 2. Support lines and tubes are grossly stable. 3. Scattered sclerotic foci within the osseous structures, bone metastases. Electronically signed by: Cas Rehman MD (01/02/2021 8:17 AM) [facility]
--- NOTE | 2021-01-02 09:07 | PN ---
DATE: 01/02/2021 SUBJECTIVE: The patient is resting, slightly propped up in bed, in no apparent distress, awake, alert. On questioning her, denied any complaint. Nursing staff did not voice any concerns, stated that she had an uneventful night. The drainage from the right chest was less than 100 this morning. She continued to have leukopenia and we did consult Dr. Rios to see her. PHYSICAL EXAMINATION: GENERAL: When I examined her, she was pale, somewhat cachectic, but not jaundiced, cyanosed, no lymphadenopathy, no thyromegaly, no jugular venous distention. No limb edema. VITAL SIGNS: Her heart rate was 68, blood pressure is 112/78, temperature was 98.4, respiratory rate was 16 and oxygen saturation was 94%. The rest of the clinical exam stable, has not changed. Her intake was 720, output was 1150. LABORATORY DATA: As of this morning showed a white cell count of 1600, hemoglobin 9.6, hematocrit 28.8, MCV 88 and platelet count 259,000 with automated differential showed 53% polymorphs, 20% lymphocytes and 21% monocytes. Her chemistry showed a serum sodium 137, potassium 4.1, chloride 106, bicarbonate 23, anion gap of 8, BUN 8, creatinine 0.7. Estimated GFR was 109 mL per minute. Her glucose was 78 and calcium was 7.6. ASSESSMENT: 1. Stage 4 metastatic breast cancer with metastasis to liver and bone. 2. Large right-sided pleural effusion, probably malignant as well as ascites for which she has a PleurX. She has a chest tube, the right hemithorax with very little drainage today. 3. Hypertension. 4. Neurofibromatosis. 5. She does have history of deep vein thrombosis, which has an IVC filter. 6. Right-sided pleural effusion was completely drained. Her ascitic fluid did not show any evidence of peritonitis that is transudative in nature. 7. She continued to have leukopenia that is worsening. Today's white cell count was 1600, which 50% were polymorphs; however, the patient continued to be afebrile. We did consult Dr. Rios to assist with management. 8. Apparently, the examiner of currency will consider pleurodesis once her drainage from the chest tube was less than 200. HOANG/ZINA DR: Dewey TID: [id number]
--- NOTE | 2021-01-02 10:36 | NUR ---
SW following. Discussed with RN, pt from home, room air, neutropenic diet. Chest tube in place, possible clamping soon. Oncology following. RN advised no SW needs at this time. SW will continue to follow.
--- NOTE | 2021-01-02 10:43 | PDOC ---
PULMONARY PROGRESS NOTES DATE: 01/02/21 TIME: 10:41 Subjective denies sob pain is tired ct drainage less than 200cc Vitals Vital Signs Date Time Temp Pulse Resp B/P (MAP) Pulse Ox O2 Delivery O2 Flow Rate FiO2 01/02/21 07:00 98.4 68 16 112/78 (89) 94 Room Air 98.4 01/01/21 08:00 2.0 ROS: No Nausea General: Alert HEENT: Other (nc at perrl ) Lungs: Other (r ct ) Cardiovascular: S1, S2 Abdomen: Soft Neuro Exam: Alert Extremities: No Edema Skin: Warm Labs Laboratory Tests Test 01/01/21 05:40 01/01/21 10:35 01/02/21 06:10 Sodium Level 137 mmol/L (136-145) Potassium Level 4.1 mmol/L (3.5-5.1) Chloride Level 106 mmol/L (98-107) Carbon Dioxide Level 23 mmol/L (21-32) Anion Gap 8 (6-14) Blood Urea Nitrogen 8 mg/dL (7-20) Creatinine 0.7 mg/dL (0.6-1.0) Estimated GFR (Cockcroft-Gault) 109.5 Glucose Level 78 mg/dL (70-99) Calcium Level 7.6 mg/dL (8.5-10.1) White Blood Count 1.8 x10^3/uL (4.0-11.0) 1.6 x10^3/uL (4.0-11.0) Red Blood Count 3.19 x10^6/uL (3.50-5.40) 3.26 x10^6/uL (3.50-5.40) Hemoglobin 9.4 g/dL (12.0-15.5) 9.6 g/dL (12.0-15.5) Hematocrit 28.2 % (36.0-47.0) 28.8 % (36.0-47.0) Mean Corpuscular Volume 88 fL (79-100) 88 fL (79-100) Mean Corpuscular Hemoglobin 30 pg (25-35) 29 pg (25-35) Mean Corpuscular Hemoglobin Concent 33 g/dL (31-37) 33 g/dL (31-37) Red Cell Distribution Width 20.6 % (11.5-14.5) 20.9 % (11.5-14.5) Platelet Count 258 x10^3/uL (140-400) 259 x10^3/uL (140-400) Neutrophils (%) (Auto) 62 % (31-73) 53 % (31-73) Lymphocytes (%) (Auto) 16 % (24-48) 20 % (24-48) Monocytes (%) (Auto) 17 % (0-9) 21 % (0-9) Eosinophils (%) (Auto) 3 % (0-3) 4 % (0-3) Basophils (%) (Auto) 1 % (0-3) 2 % (0-3) Neutrophils # (Auto) 1.1 x10^3/uL (1.8-7.7) 0.8 x10^3/uL (1.8-7.7) Lymphocytes # (Auto) 0.3 x10^3/uL (1.0-4.8) 0.3 x10^3/uL (1.0-4.8) Monocytes # (Auto) 0.3 x10^3/uL (0.0-1.1) 0.3 x10^3/uL (0.0-1.1) Eosinophils # (Auto) 0.1 x10^3/uL (0.0-0.7) 0.1 x10^3/uL (0.0-0.7) Basophils # (Auto) 0.0 x10^3/uL (0.0-0.2) 0.0 x10^3/uL (0.0-0.2) Laboratory Tests Test 01/02/21 06:10 White Blood Count 1.6 x10^3/uL (4.0-11.0) Red Blood Count 3.26 x10^6/uL (3.50-5.40) Hemoglobin 9.6 g/dL (12.0-15.5) Hematocrit 28.8 % (36.0-47.0) Mean Corpuscular Volume 88 fL (79-100) Mean Corpuscular Hemoglobin 29 pg (25-35) Mean Corpuscular Hemoglobin Concent 33 g/dL (31-37) Red Cell Distribution Width 20.9 % (11.5-14.5) Platelet Count 259 x10^3/uL (140-400) Neutrophils (%) (Auto) 53 % (31-73) Lymphocytes (%) (Auto) 20 % (24-48) Monocytes (%) (Auto) 21 % (0-9) Eosinophils (%) (Auto) 4 % (0-3) Basophils (%) (Auto) 2 % (0-3) Neutrophils # (Auto) 0.8 x10^3/uL (1.8-7.7) Lymphocytes # (Auto) 0.3 x10^3/uL (1.0-4.8) Monocytes # (Auto) 0.3 x10^3/uL (0.0-1.1) Eosinophils # (Auto) 0.1 x10^3/uL (0.0-0.7) Basophils # (Auto) 0.0 x10^3/uL (0.0-0.2) Medications Active Scripts Medications Dose Route/Sig Max Daily Dose Days Date Category Percocet 10-325 Mg Tablet (Oxycodone/Acetaminophen) 1 Each Tablet 1 Tab PO PRN Q4-6HRS PRN MDD 6 Tablet(s) 5 12/29/20 Reported Oxycontin (Oxycodone HCl) 10 Mg Tab.er.12h 1 Tab PO PRN 2-3XD PRN MDD 3 Tablet(s) 30 12/29/20 Reported Amlodipine Besylate 5 Mg Tablet Unknown Dose PO DAILY 12/29/20 Reported Meloxicam 7.5 Mg Tablet Unknown Dose PO DAILY 30 12/29/20 Reported Ferrous Sulfate 325 Mg Tablet 1 Tab PO DAILY 10/16/13 Reported Comments Chest x-ray reviewed dated January 02, 2021 Small right-sided pleural effusion with some interstitial changes Impression . IMPRESSION: 1. Acute hypoxemic respiratory failure secondary to malignant pleural effusion. 2. Malignant pleural effusion related to breast cancer, status post chest tube placement. 3. Stage 4 breast cancer. 4. Neurofibromatosis. 5. Leukopenia. 6. Hypokalemia. Plan . 01/02 1. continue chest tube in place. Talc may not be effective. She would be a better candidate for Pleurx catheter. Patient already has a Pleurx catheter in her abdominal wall secondary to malignancy. All her care has been at . She prefers to have the procedure done at . 2. Empiric antibiotics. 3. Replace potassium. 4. pain control 5. Hematology recommendations regarding leukopenia. 6. I have discussed with patient's RN. I will remove the chest tube when she is ready to be discharged. She can have a follow-up at and have a Pleurx catheter done there. 01/01 1. continue chest tube in place. ct drainage a little over [address] tubing was kinked corrected w the help of rn and taped talc when pleural fluid drains less than 200 2. Empiric antibiotics. 3. Replace potassium. 4. pain control Above was discussed with pt and rn PLAN: 1. continue chest tube in place. ct drainage 200 cc talc when pleural fluid drains less than 200 2. Empiric antibiotics. 3. Replace potassium. 4. pain control Above was discussed with pt and rn BLANK RUDD MD Jan 02, 2021 10:43
[2021-01-02 11:00] VITALS: BP 103/73
[2021-01-02] MEDS: fentaNYL PF VIAL 100 MCG/2 ML VIAL IVP PRN (13:13)
[2021-01-02 15:00] VITALS: BP 109/85
[2021-01-02 19:00] VITALS: BP 111/76
[2021-01-02 23:00] VITALS: BP 115/83
[2021-01-03 03:27] VITALS: BP 120/83
[2021-01-03] MEDS: CEFEPIME HCL IV Push 1 GM VIAL. IVP SCH ×3 (05:47→21:24)
[2021-01-03] MEDS: oxyCODONE/APAP 10/325 1 TAB TABLET PO PRN ×3 (05:49→21:43)
[2021-01-03 07:00] VITALS: BP 118/78
--- NOTE | 2021-01-03 08:42 | RAD ---
EXAM: AP View of the chest DATE: 01/03/2021 8:04 AM INDICATION: Reason: effusion / Spl. Instructions: / History: COMPARISON: No Prior FINDINGS: Right chest tube and left port are in stable position. Bilateral parenchymal airspace opacities and s mall right pleural effusion are stable. The heart is not enlarged. Mediastinal and hilar contours are stable. Heterogeneous bony sclerotic lesions, metastasis. IMPRESSION: 1. Heterogeneous bony sclerotic lesions, metastasis. 2. Support lines and tubes are stable. 3. Bilateral parenchymal opacities are stable. Electronically signed by: Cas Rehman MD (01/03/2021 8:39 AM) [id number]
[2021-01-03 09:43] LABS: BASO % 2 % (0-3); EOS # 0.1 x10^3/uL (0.0-0.7); EOS % 4 % (0-3); HEMATOCRIT 29.1 % (36.0-47.0); HEMOGLOBIN 9.8 g/dL (12.0-15.5); LYMPH # 0.3 x10^3/uL (1.0-4.8); LYMPH % 22 % (24-48); MEAN CORPUSCULAR HEMOGLOBIN 30 pg (25-35); MEAN CORPUSCULAR HGB CONC 34 g/dL (31-37); MEAN CORPUSCULAR VOLUME 88 fL (79-100); MONO # 0.4 x10^3/uL (0.0-1.1); MONO % 23 % (0-9); NEUT # 0.8 x10^3/uL (1.8-7.7); NEUT % 49 % (31-73); PLATELET COUNT 253 x10^3/uL (140-400); RED BLOOD COUNT 3.32 x10^6/uL (3.50-5.40); RED CELL DISTRIBUTION WIDTH 20.2 % (11.5-14.5)
[2021-01-03 09:47] LABS: CALCIUM 7.7 mg/dL (8.5-10.1); CREATININE 0.5 mg/dL (0.6-1.0); GFR 161.4; POTASSIUM 3.4 mmol/L (3.5-5.1)
[2021-01-03 09:55] LABS: ALBUMIN/GLOBULIN RATIO 0.6 (1.0-1.7); TOTAL BILIRUBIN 0.4 mg/dL (0.2-1.0); TOTAL PROTEIN 5.4 g/dL (6.4-8.2)
[2021-01-03 09:58] LABS: WHITE BLOOD COUNT 1.6 x10^3/uL (4.0-11.0)
[2021-01-03 11:00] VITALS: BP 111/73
--- NOTE | 2021-01-03 12:23 | PDOC ---
PULMONARY PROGRESS NOTES DATE: 01/03/21 TIME: 12:21 Subjective denies sob pain is tired ct drainage less than 200cc Vitals Vital Signs Date Time Temp Pulse Resp B/P (MAP) Pulse Ox O2 Delivery O2 Flow Rate FiO2 01/03/21 11:00 98.2 87 16 111/73 (86) 94 Room Air 98.2 01/02/21 23:00 2.0 ROS: No Nausea General: Alert HEENT: Other (nc at perrl ) Lungs: Other (r ct ) Cardiovascular: S1, S2 Abdomen: Soft Neuro Exam: Alert Extremities: No Edema Skin: Warm Labs Laboratory Tests Test 01/02/21 06:10 01/03/21 09:25 White Blood Count 1.6 x10^3/uL (4.0-11.0) 1.6 x10^3/uL (4.0-11.0) Red Blood Count 3.26 x10^6/uL (3.50-5.40) 3.32 x10^6/uL (3.50-5.40) Hemoglobin 9.6 g/dL (12.0-15.5) 9.8 g/dL (12.0-15.5) Hematocrit 28.8 % (36.0-47.0) 29.1 % (36.0-47.0) Mean Corpuscular Volume 88 fL (79-100) 88 fL (79-100) Mean Corpuscular Hemoglobin 29 pg (25-35) 30 pg (25-35) Mean Corpuscular Hemoglobin Concent 33 g/dL (31-37) 34 g/dL (31-37) Red Cell Distribution Width 20.9 % (11.5-14.5) 20.2 % (11.5-14.5) Platelet Count 259 x10^3/uL (140-400) 253 x10^3/uL (140-400) Neutrophils (%) (Auto) 53 % (31-73) 49 % (31-73) Lymphocytes (%) (Auto) 20 % (24-48) 22 % (24-48) Monocytes (%) (Auto) 21 % (0-9) 23 % (0-9) Eosinophils (%) (Auto) 4 % (0-3) 4 % (0-3) Basophils (%) (Auto) 2 % (0-3) 2 % (0-3) Neutrophils # (Auto) 0.8 x10^3/uL (1.8-7.7) 0.8 x10^3/uL (1.8-7.7) Lymphocytes # (Auto) 0.3 x10^3/uL (1.0-4.8) 0.3 x10^3/uL (1.0-4.8) Monocytes # (Auto) 0.3 x10^3/uL (0.0-1.1) 0.4 x10^3/uL (0.0-1.1) Eosinophils # (Auto) 0.1 x10^3/uL (0.0-0.7) 0.1 x10^3/uL (0.0-0.7) Basophils # (Auto) 0.0 x10^3/uL (0.0-0.2) 0.0 x10^3/uL (0.0-0.2) Sodium Level 137 mmol/L (136-145) Potassium Level 3.4 mmol/L (3.5-5.1) Chloride Level 104 mmol/L (98-107) Carbon Dioxide Level 26 mmol/L (21-32) Anion Gap 7 (6-14) Blood Urea Nitrogen 7 mg/dL (7-20) Creatinine 0.5 mg/dL (0.6-1.0) Estimated GFR (Cockcroft-Gault) 161.4 BUN/Creatinine Ratio 14 (6-20) Glucose Level 120 mg/dL (70-99) Calcium Level 7.7 mg/dL (8.5-10.1) Total Bilirubin 0.4 mg/dL (0.2-1.0) Aspartate Amino Transf (AST/SGOT) 18 U/L (15-37) Alanine Aminotransferase (ALT/SGPT) 18 U/L (14-59) Alkaline Phosphatase 111 U/L (46-116) Total Protein 5.4 g/dL (6.4-8.2) Albumin 2.0 g/dL (3.4-5.0) Albumin/Globulin Ratio 0.6 (1.0-1.7) Laboratory Tests Test 01/03/21 09:25 White Blood Count 1.6 x10^3/uL (4.0-11.0) Red Blood Count 3.32 x10^6/uL (3.50-5.40) Hemoglobin 9.8 g/dL (12.0-15.5) Hematocrit 29.1 % (36.0-47.0) Mean Corpuscular Volume 88 fL (79-100) Mean Corpuscular Hemoglobin 30 pg (25-35) Mean Corpuscular Hemoglobin Concent 34 g/dL (31-37) Red Cell Distribution Width 20.2 % (11.5-14.5) Platelet Count 253 x10^3/uL (140-400) Neutrophils (%) (Auto) 49 % (31-73) Lymphocytes (%) (Auto) 22 % (24-48) Monocytes (%) (Auto) 23 % (0-9) Eosinophils (%) (Auto) 4 % (0-3) Basophils (%) (Auto) 2 % (0-3) Neutrophils # (Auto) 0.8 x10^3/uL (1.8-7.7) Lymphocytes # (Auto) 0.3 x10^3/uL (1.0-4.8) Monocytes # (Auto) 0.4 x10^3/uL (0.0-1.1) Eosinophils # (Auto) 0.1 x10^3/uL (0.0-0.7) Basophils # (Auto) 0.0 x10^3/uL (0.0-0.2) Sodium Level 137 mmol/L (136-145) Potassium Level 3.4 mmol/L (3.5-5.1) Chloride Level 104 mmol/L (98-107) Carbon Dioxide Level 26 mmol/L (21-32) Anion Gap 7 (6-14) Blood Urea Nitrogen 7 mg/dL (7-20) Creatinine 0.5 mg/dL (0.6-1.0) Estimated GFR (Cockcroft-Gault) 161.4 BUN/Creatinine Ratio 14 (6-20) Glucose Level 120 mg/dL (70-99) Calcium Level 7.7 mg/dL (8.5-10.1) Total Bilirubin 0.4 mg/dL (0.2-1.0) Aspartate Amino Transf (AST/SGOT) 18 U/L (15-37) Alanine Aminotransferase (ALT/SGPT) 18 U/L (14-59) Alkaline Phosphatase 111 U/L (46-116) Total Protein 5.4 g/dL (6.4-8.2) Albumin 2.0 g/dL (3.4-5.0) Albumin/Globulin Ratio 0.6 (1.0-1.7) Medications Active Scripts Medications Dose Route/Sig Max Daily Dose Days Date Category Percocet 10-325 Mg Tablet (Oxycodone/Acetaminophen) 1 Each Tablet 1 Tab PO PRN Q4-6HRS PRN MDD 6 Tablet(s) 5 12/29/20 Reported Oxycontin (Oxycodone HCl) 10 Mg Tab.er.12h 1 Tab PO PRN 2-3XD PRN MDD 3 Tablet(s) 30 12/29/20 Reported Amlodipine Besylate 5 Mg Tablet Unknown Dose PO DAILY 12/29/20 Reported Meloxicam 7.5 Mg Tablet Unknown Dose PO DAILY 30 12/29/20 Reported Ferrous Sulfate 325 Mg Tablet 1 Tab PO DAILY 10/16/13 Reported Comments Chest x-ray reviewed dated January 02, 2021 Small right-sided pleural effusion with some interstitial changes Impression . IMPRESSION: 1. Acute hypoxemic respiratory failure secondary to malignant pleural effusion. 2. Malignant pleural effusion related to breast cancer, status post chest tube placement. 3. Stage 4 breast cancer. 4. Neurofibromatosis. 5. Leukopenia. 6. Hypokalemia. Plan . 01/03 1. continue chest tube in place. Talc may not be as effective. She would be a better candidate for Pleurx catheter. Patient already has a Pleurx catheter in her abdominal wall secondary to malignancy. All her care has been at . I spoke to the patient again and she now prefers to have the Pleurx catheter done at [facility] as she may not get the appointment at for many weeks. I have discussed with interventional radiology. At this point I will clamp the chest tube and obtain daily x-rays. 2. Empiric antibiotics. 3. Replace potassium. 4. pain control 5. Hematology recommendations regarding leukopenia. 6. I have discussed with patient's RN. 01/02 1. continue chest tube in place. Talc may not be effective. She would be a better candidate for Pleurx catheter. Patient already has a Pleurx catheter in her abdominal wall secondary to malignancy. All her care has been at . She prefers to have the procedure done at . 2. Empiric antibiotics. 3. Replace potassium. 4. pain control 5. Hematology recommendations regarding leukopenia. 6. I have discussed with patient's RN. I will remove the chest tube when she is ready to be discharged. She can have a follow-up at and have a Pleurx catheter done there. 01/01 1. continue chest tube in place. ct drainage a little over [address] tubing was kinked corrected w the help of rn and taped talc when pleural fluid drains less than 200 2. Empiric antibiotics. 3. Replace potassium. 4. pain control Above was discussed with pt and rn PLAN: 1. continue chest tube in place. ct drainage 200 cc talc when pleural fluid drains less than 200 2. Empiric antibiotics. 3. Replace potassium. 4. pain control Above was discussed with pt and rn BLANK RUDD MD Jan 03, 2021 12:23
--- NOTE | 2021-01-03 13:03 | PN ---
DATE: 01/03/2021 SUBJECTIVE: The patient is resting, slightly propped up in bed, in no apparent distress. Her chest tube is draining very little. The patient herself denied any chest pain or shortness of breath, cough or phlegm. Her white cell count continued to be on the low side; however, the patient herself is afebrile. OBJECTIVE: GENERAL: On examining her, she looked well and was clearly in no apparent respiratory distress. VITAL SIGNS: Her heart rate was 83, blood pressure is 118/78, temperature 98.1, respiratory rate was 18 and oxygen saturation was 94% on room air. The rest of clinical exam was stable. ASSESSMENT: 1. Stage IV metastatic breast cancer, metastasis to liver and bone. 2. Large right sided pleural effusion, probably malignant as well as ascites for which she has PleurX. Did have a chest tube placed to the right hemithorax with very little drainage. 3. Hypertension. 4. Neurofibromatosis. 5. She has had a history of deep vein thrombosis, which has an inferior vena cava filter. 6. Right-sided pleural effusion was completely drained. Ascitic fluid did not show any evidence of peritonitis and was transudative in nature. 7. She continued to have leukopenia that is stable around 1.6. We did consult Dr. Rios to assist with management stage; apparently Dr. Smith wanted to place her on [facility]; however, the patient wanted to be done at [facility]. PLAN: To wait for the Dr. Rios recommendation and there is no further management and her chest tube can be taken out. She can be discharged today. LOUANN DR: Dewey TID: [id number]
--- NOTE | 2021-01-03 13:41 | PDOC2 ---
CONSULT Date of Consult Date of Consult DATE: 01/03/21 TIME: 13:36 Reason for Consult Reason for Consult: Breast cancer and neutropenia Referring Physician Referring Physician: Dr. Keene Identification/Chief Complaint Chief Complaint Shortness of breath Source Source: Chart review, Patient History of Present Illness Reason for Visit: Judi Rodas is a 45-year-old female with metastatic breast cancer. She sees Dr. Maury Rascon at [facility]. She is currently receiving palliative chemotherapy with Doxil. She states she has an upcoming appointment for chemotherapy with Dr. Rascon. Most recent restaging scans have shown stable disease. She has been admitted to [facility] after presenting with shortness of breath. CT chest showed a large right pleural effusion. Chest tube has been placed. Medical oncology consultation has been sought due to the patient's neutropenia and history of breast cancer and recent receipt of chemotherapy Current Medications Current Medications Current Medications Oxycodone/ Acetaminophen (Percocet 10/325) 1 tab PRN Q4HRS PRN PO SEVERE PAIN 7-10 Last administered on 01/03/21at 05:49; Start 12/29/20 at 21:15 Fentanyl Citrate (Fentanyl 2ml Vial) 50 mcg PRN Q3HRS PRN IVP SEVERE PAIN 7-10 Last administered on 01/02/21at 13:13; Start 12/29/20 at 21:15 Cefepime HCl (Maxipime) 1 gm Q8HRS IVP Last administered on 01/03/21at 05:47; Start 12/30/20 at 10:00 Potassium Chloride (Klor-Con) 40 meq Q2H PO Last administered on 12/30/20at 18:56; Start 12/30/20 at 16:00; Stop 12/30/20 at 18:01; Status DC Ondansetron HCl (Zofran) 4 mg PRN Q6HRS PRN IVP NAUSEA/VOMITING; Start 12/30/20 at 20:45 Potassium Chloride (Klor-Con) 40 meq 1X ONCE PO ; Start 01/03/21 at 14:00; Stop 01/03/21 at 14:01 Active Scripts Active Reported Percocet 10-325 Mg Tablet (Oxycodone/Acetaminophen) 1 Each Tablet 1 Tab PO PRN Q4-6HRS PRN MDD 6 Tablet(s) 5 Days Oxycontin (Oxycodone HCl) 10 Mg Tab.er.12h 1 Tab PO PRN 2-3XD PRN MDD 3 Tablet(s) 30 Days Amlodipine Besylate 5 Mg Tablet Unknown Dose PO DAILY Meloxicam 7.5 Mg Tablet Unknown Dose PO DAILY 30 Days Ferrous Sulfate 325 Mg Tablet 1 Tab PO DAILY Allergies Allergies: Coded Allergies: No Known Drug Allergies (Unverified , 10/16/13) ROS Review of System Negative unless stated otherwise in HPI Physical Exam Physical Exam General: Awake, alert, no distress Head: Atraumatic, no conjunctival icterus, normal oral cavity mucosa Neck: Supple, no lymphadenopathy Chest: No trauma noted Cardiovascular: Regular rhythm, normal rate, no murmurs Respiratory: Chest tube noted Abdominal: Abdomen is soft, nontender, nondistended. Bowel sounds were normal. No hepatomegaly or splenomegaly Musculoskeletal: No deformity noted Extremities: No edema noted Skin: No rash or lesions Neurologic: Alert and oriented x3, no grossly evident neurologic deficits noted. Full neurological exam was not performed Psychiatric: Appropriate mood and affect Vitals VITALS Vital Signs Date Time Temp Pulse Resp B/P (MAP) Pulse Ox O2 Delivery O2 Flow Rate FiO2 01/03/21 11:00 98.2 87 16 111/73 (86) 94 Room Air 98.2 01/02/21 23:00 2.0 Labs Labs Laboratory Tests Test 01/02/21 06:10 01/03/21 09:25 White Blood Count 1.6 x10^3/uL (4.0-11.0) 1.6 x10^3/uL (4.0-11.0) Red Blood Count 3.26 x10^6/uL (3.50-5.40) 3.32 x10^6/uL (3.50-5.40) Hemoglobin 9.6 g/dL (12.0-15.5) 9.8 g/dL (12.0-15.5) Hematocrit 28.8 % (36.0-47.0) 29.1 % (36.0-47.0) Mean Corpuscular Volume 88 fL (79-100) 88 fL (79-100) Mean Corpuscular Hemoglobin 29 pg (25-35) 30 pg (25-35) Mean Corpuscular Hemoglobin Concent 33 g/dL (31-37) 34 g/dL (31-37) Red Cell Distribution Width 20.9 % (11.5-14.5) 20.2 % (11.5-14.5) Platelet Count 259 x10^3/uL (140-400) 253 x10^3/uL (140-400) Neutrophils (%) (Auto) 53 % (31-73) 49 % (31-73) Lymphocytes (%) (Auto) 20 % (24-48) 22 % (24-48) Monocytes (%) (Auto) 21 % (0-9) 23 % (0-9) Eosinophils (%) (Auto) 4 % (0-3) 4 % (0-3) Basophils (%) (Auto) 2 % (0-3) 2 % (0-3) Neutrophils # (Auto) 0.8 x10^3/uL (1.8-7.7) 0.8 x10^3/uL (1.8-7.7) Lymphocytes # (Auto) 0.3 x10^3/uL (1.0-4.8) 0.3 x10^3/uL (1.0-4.8) Monocytes # (Auto) 0.3 x10^3/uL (0.0-1.1) 0.4 x10^3/uL (0.0-1.1) Eosinophils # (Auto) 0.1 x10^3/uL (0.0-0.7) 0.1 x10^3/uL (0.0-0.7) Basophils # (Auto) 0.0 x10^3/uL (0.0-0.2) 0.0 x10^3/uL (0.0-0.2) Sodium Level 137 mmol/L (136-145) Potassium Level 3.4 mmol/L (3.5-5.1) Chloride Level 104 mmol/L (98-107) Carbon Dioxide Level 26 mmol/L (21-32) Anion Gap 7 (6-14) Blood Urea Nitrogen 7 mg/dL (7-20) Creatinine 0.5 mg/dL (0.6-1.0) Estimated GFR (Cockcroft-Gault) 161.4 BUN/Creatinine Ratio 14 (6-20) Glucose Level 120 mg/dL (70-99) Calcium Level 7.7 mg/dL (8.5-10.1) Total Bilirubin 0.4 mg/dL (0.2-1.0) Aspartate Amino Transf (AST/SGOT) 18 U/L (15-37) Alanine Aminotransferase (ALT/SGPT) 18 U/L (14-59) Alkaline Phosphatase 111 U/L (46-116) Total Protein 5.4 g/dL (6.4-8.2) Albumin 2.0 g/dL (3.4-5.0) Albumin/Globulin Ratio 0.6 (1.0-1.7) Laboratory Tests Test 01/03/21 09:25 White Blood Count 1.6 x10^3/uL (4.0-11.0) Red Blood Count 3.32 x10^6/uL (3.50-5.40) Hemoglobin 9.8 g/dL (12.0-15.5) Hematocrit 29.1 % (36.0-47.0) Mean Corpuscular Volume 88 fL (79-100) Mean Corpuscular Hemoglobin 30 pg (25-35) Mean Corpuscular Hemoglobin Concent 34 g/dL (31-37) Red Cell Distribution Width 20.2 % (11.5-14.5) Platelet Count 253 x10^3/uL (140-400) Neutrophils (%) (Auto) 49 % (31-73) Lymphocytes (%) (Auto) 22 % (24-48) Monocytes (%) (Auto) 23 % (0-9) Eosinophils (%) (Auto) 4 % (0-3) Basophils (%) (Auto) 2 % (0-3) Neutrophils # (Auto) 0.8 x10^3/uL (1.8-7.7) Lymphocytes # (Auto) 0.3 x10^3/uL (1.0-4.8) Monocytes # (Auto) 0.4 x10^3/uL (0.0-1.1) Eosinophils # (Auto) 0.1 x10^3/uL (0.0-0.7) Basophils # (Auto) 0.0 x10^3/uL (0.0-0.2) Sodium Level 137 mmol/L (136-145) Potassium Level 3.4 mmol/L (3.5-5.1) Chloride Level 104 mmol/L (98-107) Carbon Dioxide Level 26 mmol/L (21-32) Anion Gap 7 (6-14) Blood Urea Nitrogen 7 mg/dL (7-20) Creatinine 0.5 mg/dL (0.6-1.0) Estimated GFR (Cockcroft-Gault) 161.4 BUN/Creatinine Ratio 14 (6-20) Glucose Level 120 mg/dL (70-99) Calcium Level 7.7 mg/dL (8.5-10.1) Total Bilirubin 0.4 mg/dL (0.2-1.0) Aspartate Amino Transf (AST/SGOT) 18 U/L (15-37) Alanine Aminotransferase (ALT/SGPT) 18 U/L (14-59) Alkaline Phosphatase 111 U/L (46-116) Total Protein 5.4 g/dL (6.4-8.2) Albumin 2.0 g/dL (3.4-5.0) Albumin/Globulin Ratio 0.6 (1.0-1.7) Assessment/Plan Assessment/Plan Assessment: Metastatic breast cancer Normocytic anemia Neutropenia secondary to antineoplastic therapy Malignant pleural effusion Failure to thrive Recommendations: -Recommend Zarxio 300 mcg daily until ANC greater than 1500 -Continue management of chest tube per pulmonology -Patient was provided with contact information for my office. She plans on continuing care with Dr. Rascon -Rest per Dr. Keene. No additional oncology recommendations at this time ARTURO JONES MD Jan 03, 2021 13:41
[2021-01-03] MEDS ORDERED: POTASSIUM CHLORIDE 20 MEQ TABLET.ER. PO ONE (14:00)
[2021-01-03] MEDS: fentaNYL PF VIAL 100 MCG/2 ML VIAL IVP PRN ×2 (14:52→20:06)
[2021-01-03 15:00] VITALS: BP 110/78
--- NOTE | 2021-01-03 18:16 | PATHOLOGY ---
Note [facility] Accession Number: [id number] TESTS RESULT FLAG UNITS REF RANGE LAB Clinician Provided Cytology Information No. of containers..01 Other (Miscellaneous) Source: PERITONEAL FLUID DIAGNOSIS: 02 PERITONEAL FLUID NEGATIVE FOR MALIGNANT CELLS. REACTIVE MESOTHELIAL CELLS ARE PRESENT. THIS INTERPRETATION INCLUDES EVALUATION OF A CELL BLOCK. Signed out by: Al Tran MD, Pathologist NPI- [id number] Performed by: Katy Crockett, Chief Lock Tender Operator ([facility]) Gross description: 01 40ML, CLOUDY, YELLOW /LCS 01/02/2021 1248 Local FLAG LEGEND: L-Low Normal,H-High Normal,LL-Alert Low,HH-Alert High <-Panic Low,>-Panic High,A-Abnormal,AA-Critical Abnormal Performed at: [address] [place] [address] Gene Infante MD, 02 [facility] [address] [place] [address] Al Tran MD, Specimen Comment: A courtesy copy of this report has been sent to [phone] Specimen Comment: Report sent to Performed at: [address] [place] [address] [address], [place], [place] [id number] MD Gene Infante MD Phone: [phone]
[2021-01-03 19:18] VITALS: BP 105/77
[2021-01-03] MEDS: TBO-FILGRASTIM 300 MCG/0.5 ML SYRINGE. SQ SCH (21:22)
[2021-01-03 23:50] VITALS: BP 124/69
[2021-01-04 03:00] VITALS: BP 122/68
[2021-01-04] MEDS: oxyCODONE/APAP 10/325 1 TAB TABLET PO PRN ×3 (04:33→21:47)
[2021-01-04] MEDS: CEFEPIME HCL IV Push 1 GM VIAL. IVP SCH ×3 (05:56→21:37)
[2021-01-04 07:00] VITALS: BP 115/72
--- NOTE | 2021-01-04 07:11 | PDOC ---
PULMONARY PROGRESS NOTES DATE: 01/04/21 TIME: 07:08 Subjective denies sob chest tube clamped 01/03 Vitals Vital Signs Date Time Temp Pulse Resp B/P (MAP) Pulse Ox O2 Delivery O2 Flow Rate FiO2 01/04/21 03:00 97.9 78 16 122/68 (86) 96 Room Air 97.9 ROS: No Nausea General: Alert HEENT: Other (nc at perrl ) Lungs: Other (r ct ) Cardiovascular: S1, S2 Abdomen: Soft Neuro Exam: Alert Extremities: No Edema Skin: Warm Labs Laboratory Tests Test 01/03/21 09:25 White Blood Count 1.6 x10^3/uL (4.0-11.0) Red Blood Count 3.32 x10^6/uL (3.50-5.40) Hemoglobin 9.8 g/dL (12.0-15.5) Hematocrit 29.1 % (36.0-47.0) Mean Corpuscular Volume 88 fL (79-100) Mean Corpuscular Hemoglobin 30 pg (25-35) Mean Corpuscular Hemoglobin Concent 34 g/dL (31-37) Red Cell Distribution Width 20.2 % (11.5-14.5) Platelet Count 253 x10^3/uL (140-400) Neutrophils (%) (Auto) 49 % (31-73) Lymphocytes (%) (Auto) 22 % (24-48) Monocytes (%) (Auto) 23 % (0-9) Eosinophils (%) (Auto) 4 % (0-3) Basophils (%) (Auto) 2 % (0-3) Neutrophils # (Auto) 0.8 x10^3/uL (1.8-7.7) Lymphocytes # (Auto) 0.3 x10^3/uL (1.0-4.8) Monocytes # (Auto) 0.4 x10^3/uL (0.0-1.1) Eosinophils # (Auto) 0.1 x10^3/uL (0.0-0.7) Basophils # (Auto) 0.0 x10^3/uL (0.0-0.2) Sodium Level 137 mmol/L (136-145) Potassium Level 3.4 mmol/L (3.5-5.1) Chloride Level 104 mmol/L (98-107) Carbon Dioxide Level 26 mmol/L (21-32) Anion Gap 7 (6-14) Blood Urea Nitrogen 7 mg/dL (7-20) Creatinine 0.5 mg/dL (0.6-1.0) Estimated GFR (Cockcroft-Gault) 161.4 BUN/Creatinine Ratio 14 (6-20) Glucose Level 120 mg/dL (70-99) Calcium Level 7.7 mg/dL (8.5-10.1) Total Bilirubin 0.4 mg/dL (0.2-1.0) Aspartate Amino Transf (AST/SGOT) 18 U/L (15-37) Alanine Aminotransferase (ALT/SGPT) 18 U/L (14-59) Alkaline Phosphatase 111 U/L (46-116) Total Protein 5.4 g/dL (6.4-8.2) Albumin 2.0 g/dL (3.4-5.0) Albumin/Globulin Ratio 0.6 (1.0-1.7) Laboratory Tests Test 01/03/21 09:25 White Blood Count 1.6 x10^3/uL (4.0-11.0) Red Blood Count 3.32 x10^6/uL (3.50-5.40) Hemoglobin 9.8 g/dL (12.0-15.5) Hematocrit 29.1 % (36.0-47.0) Mean Corpuscular Volume 88 fL (79-100) Mean Corpuscular Hemoglobin 30 pg (25-35) Mean Corpuscular Hemoglobin Concent 34 g/dL (31-37) Red Cell Distribution Width 20.2 % (11.5-14.5) Platelet Count 253 x10^3/uL (140-400) Neutrophils (%) (Auto) 49 % (31-73) Lymphocytes (%) (Auto) 22 % (24-48) Monocytes (%) (Auto) 23 % (0-9) Eosinophils (%) (Auto) 4 % (0-3) Basophils (%) (Auto) 2 % (0-3) Neutrophils # (Auto) 0.8 x10^3/uL (1.8-7.7) Lymphocytes # (Auto) 0.3 x10^3/uL (1.0-4.8) Monocytes # (Auto) 0.4 x10^3/uL (0.0-1.1) Eosinophils # (Auto) 0.1 x10^3/uL (0.0-0.7) Basophils # (Auto) 0.0 x10^3/uL (0.0-0.2) Sodium Level 137 mmol/L (136-145) Potassium Level 3.4 mmol/L (3.5-5.1) Chloride Level 104 mmol/L (98-107) Carbon Dioxide Level 26 mmol/L (21-32) Anion Gap 7 (6-14) Blood Urea Nitrogen 7 mg/dL (7-20) Creatinine 0.5 mg/dL (0.6-1.0) Estimated GFR (Cockcroft-Gault) 161.4 BUN/Creatinine Ratio 14 (6-20) Glucose Level 120 mg/dL (70-99) Calcium Level 7.7 mg/dL (8.5-10.1) Total Bilirubin 0.4 mg/dL (0.2-1.0) Aspartate Amino Transf (AST/SGOT) 18 U/L (15-37) Alanine Aminotransferase (ALT/SGPT) 18 U/L (14-59) Alkaline Phosphatase 111 U/L (46-116) Total Protein 5.4 g/dL (6.4-8.2) Albumin 2.0 g/dL (3.4-5.0) Albumin/Globulin Ratio 0.6 (1.0-1.7) Medications Active Scripts Medications Dose Route/Sig Max Daily Dose Days Date Category Percocet 10-325 Mg Tablet (Oxycodone/Acetaminophen) 1 Each Tablet 1 Tab PO PRN Q4-6HRS PRN MDD 6 Tablet(s) 5 12/29/20 Reported Oxycontin (Oxycodone HCl) 10 Mg Tab.er.12h 1 Tab PO PRN 2-3XD PRN MDD 3 Tablet(s) 30 12/29/20 Reported Amlodipine Besylate 5 Mg Tablet Unknown Dose PO DAILY 12/29/20 Reported Meloxicam 7.5 Mg Tablet Unknown Dose PO DAILY 30 12/29/20 Reported Ferrous Sulfate 325 Mg Tablet 1 Tab PO DAILY 10/16/13 Reported Comments Chest x-ray reviewed dated January 02, 2021 Small right-sided pleural effusion with some interstitial changes Impression . IMPRESSION: 1. Acute hypoxemic respiratory failure secondary to malignant right pleural effusion. 2. Malignant pleural effusion related to breast cancer, status post chest tube placement. 3. Stage 4 breast cancer. 4. Neurofibromatosis. 5. Leukopenia./persistent, post chemo 6. Hypokalemia. Plan . 01/04 1. continue chest tube in place. She would be a better candidate for Pleurx catheter. Patient already has a Pleurx catheter in her abdominal wall secondary to malignancy. All her care has been at . I spoke to the patient again and she now prefers to have the Pleurx catheter done at [facility] as she may not get the appointment at for many weeks. I have discussed with interventional radiology. At this point I will clamp the chest tube and obtain daily x-rays. 2. Empiric antibiotics. 3. Replace potassium. 4. pain control 5. Hematology recommendations regarding leukopenia. 6. I have discussed with patient's RN./ IR. PleurX today or am 01/03 1. continue chest tube in place. She would be a better candidate for Pleurx catheter. Patient already has a Pleurx catheter in her abdominal wall secondary to malignancy. All her care has been at . I spoke to the patient again and she now prefers to have the Pleurx catheter done at [facility] as she may not get the appointment at for many weeks. I have discussed with interventional radiology. At this point I will clamp the chest tube and obtain daily x-rays. 2. Empiric antibiotics. 3. Replace potassium. 4. pain control 5. Hematology recommendations regarding leukopenia. 6. I have discussed with patient's RN. 01/02 1. continue chest tube in place. Talc may not be effective. She would be a better candidate for Pleurx catheter. Patient already has a Pleurx catheter in her abdominal wall secondary to malignancy. All her care has been at . She prefers to have the procedure done at . 2. Empiric antibiotics. 3. Replace potassium. 4. pain control 5. Hematology recommendations regarding leukopenia. 6. I have discussed with patient's RN. I will remove the chest tube when she is ready to be discharged. She can have a follow-up at and have a Pleurx catheter done there. 01/01 1. continue chest tube in place. ct drainage a little over [address] tubing was kinked corrected w the help of rn and taped talc when pleural fluid drains less than 200 2. Empiric antibiotics. 3. Replace potassium. 4. pain control Above was discussed with pt and rn PLAN: 1. continue chest tube in place. ct drainage 200 cc talc when pleural fluid drains less than 200 2. Empiric antibiotics. 3. Replace potassium. 4. pain control Above was discussed with pt and rn BLANK RUDD MD Jan 04, 2021 07:11
--- NOTE | 2021-01-04 09:58 | NUR ---
SW following. Discussed with RN, pt getting pleurX drain placed today. RN advised no SW needs at this time. SW will continue to follow.
--- NOTE | 2021-01-04 10:06 | PN ---
DATE: 01/04/2021 SUBJECTIVE: The patient is resting slightly propped up in bed, in no apparent respiratory distress. She is scheduled for placement of Pleurx tube today. Her chest tube was clamped. She was seen by Dr. Garcia and she was started on the filgrastim 300 mcg subQ daily. PHYSICAL EXAMINATION: GENERAL: When I examined her this morning, she looked well and was clearly in no apparent respiratory distress, pale, but no jaundice, cyanosis, no lymphadenopathy, no thyromegaly, no jugular venous distention. No limb edema. VITAL SIGNS: Her heart rate was 79, blood pressure was 115/72, temperature was 98.1, respiratory rate was 16 and oxygen saturation was 95%. The rest of clinical exam is stable. ASSESSMENT: 1. Stage IV metastatic breast cancer with metastasis to the liver and bone. 2. Large right side pleural effusion, probably malignant as well as ascites for which she has Pleurx, did have a chest tube placed in the right hemithorax that is clamped for placement of Pleurx to the right hemithorax. 3. Hypertension. 4. Neurofibromatosis. 5. Has had a history of deep vein thrombosis for which she has an inferior vena cava filter. 6. Right-sided pleural effusion has completely drained and ascitic fluid did not show any evidence of peritonitis or malignant cells. 7. She continued to have leukopenia that is stable around 1.6. She was seen by the oncologist and now she is on filgrastim. PLAN: To await placement of Pleurx tube to the right chest and she remains stable. She probably can be discharged home. JOLENE DR: Dewey TID: [id number]
[2021-01-04 11:00] VITALS: BP 112/78
[2021-01-04] MEDS: ONDANSETRON PF 4 MG/2 ML VIAL. IVP PRN ×2 (13:17→23:20)
--- NOTE | 2021-01-04 14:05 | RAD ---
EXAM: AP View of the chest DATE: 01/04/2021 9:25 AM INDICATION: Reason: effusion / Spl. Instructions: / History: COMPARISON: 01/03/2021 FINDINGS/ IMPRESSION: Heart is not enlarged. Left port tip terminates within the distal SVC. Right chest tube is in stable position. No pneumothorax. Small right pleural effusion. Bilateral parenchymal airspace opacities, pa rticularly the lower lungs, stable. Drain is seen in the upper abdomen. Heterogeneous sclerosis likely from bony metastatic disease. Electronically signed by: Cas Rehman MD (01/04/2021 2:02 PM) [facility]
[2021-01-04 15:00] VITALS: BP 118/84
[2021-01-04 19:00] VITALS: BP 119/84
[2021-01-04] MEDS: TBO-FILGRASTIM 300 MCG/0.5 ML SYRINGE. SQ SCH (21:36)
[2021-01-04 23:31] VITALS: BP 140/89
[2021-01-05 03:00] VITALS: BP 114/56
[2021-01-05] MEDS: CEFEPIME HCL IV Push 1 GM VIAL. IVP SCH (05:09)
[2021-01-05] MEDS: fentaNYL PF VIAL 100 MCG/2 ML VIAL IVP PRN ×2 (05:46→10:29)
[2021-01-05 07:00] VITALS: BP 124/82
[2021-01-05] MEDS ORDERED: OXYC10TA46 PO (08:35)
[2021-01-05] MEDS ORDERED: OXYC1TAB22 PO (08:35)
--- NOTE | 2021-01-05 08:44 | PN ---
DATE: 01/05/2021 SUBJECTIVE: The patient is resting, slightly propped up in bed, in no apparent respiratory distress. On questioning her, denied any complaint. Nursing staff did not voice any concern. Apparently, she is scheduled for PleurX tube placement today. OBJECTIVE: GENERAL: On examining her, she looked well and was clearly in no apparent respiratory distress, somewhat pale, not jaundiced, cyanosed, no lymphadenopathy, no thyromegaly, no jugular venous distention. No lower limb edema. VITAL SIGNS: Her heart rate was 86, blood pressure is 114/56, temperature 98.5, respiratory rate was 16 and oxygen saturation was 93% on 2 liters of oxygen by nasal cannula. HEAD, EARS, NOSE AND THROAT: Normocephalic, atraumatic. NECK: Supple. HEART: Showed normal first and second heart sounds, no gallop or murmur. CHEST: Clear to auscultation, no crepitation or rhonchi. ABDOMEN: Distended, soft, nontender. NEUROLOGIC: She is sleepy, but arousable. All cranial nerves intact. She moves extremities without difficulty. LABORATORY DATA: As of her most recent white cell count was 1.6, hemoglobin 9.8, hematocrit 29, MCV 88 and platelet count 253,000. Her chemistry showed a serum sodium 137, potassium 3.4, chloride 104, bicarbonate 26, anion gap of 7, BUN 7, creatinine 0.5. ASSESSMENT: 1. Stage 4 metastatic breast cancer, metastasis to liver and bone. 2. Large right sided pleural effusion, probably malignant as well as ascites, which she has PleurX into the peritoneal cavity. She did have a chest tube placed in the right hemithorax that was clamped for placement of PleurX today, as there is enough fluid accumulated. 3. Hypertension. 4. Neurofibromatosis. 5. Has had history of deep vein thrombosis, which has an inferior vena cava filter. 6. Right-sided pleural effusion was initially completely drained; however, the chest tube was clamped for some enough fluid to accumulate for placement of PleurX. Her ascitic fluid did not show any evidence of peritonitis or malignant cells. 7. For her leukopenia, she was started on filgrastim. Today's labs are still pending at the time of this dictation. GAVIN DR: Dewey TID: [id number]
[2021-01-05 09:25] LABS: BASO # 0.1 x10^3/uL (0.0-0.2); BASO % 1 % (0-3); EOS # 0.1 x10^3/uL (0.0-0.7); EOS % 1 % (0-3); HEMATOCRIT 29.1 % (36.0-47.0); HEMOGLOBIN 9.6 g/dL (12.0-15.5); LYMPH # 0.4 x10^3/uL (1.0-4.8); LYMPH % 5 % (24-48); MEAN CORPUSCULAR HEMOGLOBIN 29 pg (25-35); MEAN CORPUSCULAR HGB CONC 33 g/dL (31-37); MEAN CORPUSCULAR VOLUME 88 fL (79-100); MONO # 1.6 x10^3/uL (0.0-1.1); MONO % 19 % (0-9); NEUT # 6.2 x10^3/uL (1.8-7.7); NEUT % 74 % (31-73); PLATELET COUNT 233 x10^3/uL (140-400); RED BLOOD COUNT 3.32 x10^6/uL (3.50-5.40); RED CELL DISTRIBUTION WIDTH 20.1 % (11.5-14.5); WHITE BLOOD COUNT 8.4 x10^3/uL (4.0-11.0)
[2021-01-05 09:46] LABS: CALCIUM 7.9 mg/dL (8.5-10.1); CREATININE 0.6 mg/dL (0.6-1.0); GFR 130.8; POTASSIUM 3.8 mmol/L (3.5-5.1)
[2021-01-05 09:48] LABS: ALBUMIN/GLOBULIN RATIO 0.6 (1.0-1.7); TOTAL BILIRUBIN 0.5 mg/dL (0.2-1.0); TOTAL PROTEIN 5.4 g/dL (6.4-8.2)
--- NOTE | 2021-01-05 09:54 | NUR ---
SW following. Discussed with RN, pt did not get drain placed yesterday, and procedure cancelled for today. Discharge order for home with self care. Pt wanting to follow at for this anyhow. RN advised no SW needs.
--- NOTE | 2021-01-05 09:56 | RAD ---
XR CHEST 1V History: Reason: effusion / Spl. Instructions: / History: Comparison: January 04, [address] December 29, 2020. Findings: Small right pleural effusion, unchanged. Stable right small caliber chest tube. Stable left chest wal l port. Patchy mid and bibasilar opacities, similar compared to prior. Unchanged heart size. Drain pr ojecting over the upper abdomen, unchanged. No pneumothorax. Unchanged osseous sclerotic lesions. Dif fuse cutaneous nodular opacities, unchanged. Impression: 1. Stable appearance of the chest compared to prior. Electronically signed by: Ralf Benavides DO (01/05/2021 9:54 AM) [id number]
--- NOTE | 2021-01-05 10:16 | PDOC ---
PULMONARY PROGRESS NOTES DATE: 01/05/21 TIME: 10:13 Subjective denies sob chest tube clamped 01/03, no significant increase in the right pleural effusion so far. Awaiting Pleurx catheter placement Vitals Vital Signs Date Time Temp Pulse Resp B/P (MAP) Pulse Ox O2 Delivery O2 Flow Rate FiO2 01/05/21 08:00 Room Air 2.0 01/05/21 07:00 98.9 94 16 124/82 (96) 90 98.9 ROS: No Nausea General: Alert HEENT: Other (nc at perrl ) Lungs: Other (r ct ) Cardiovascular: S1, S2 Abdomen: Soft Neuro Exam: Alert Extremities: No Edema Skin: Warm Labs Laboratory Tests Test 01/05/21 09:00 White Blood Count 8.4 x10^3/uL (4.0-11.0) Red Blood Count 3.32 x10^6/uL (3.50-5.40) Hemoglobin 9.6 g/dL (12.0-15.5) Hematocrit 29.1 % (36.0-47.0) Mean Corpuscular Volume 88 fL (79-100) Mean Corpuscular Hemoglobin 29 pg (25-35) Mean Corpuscular Hemoglobin Concent 33 g/dL (31-37) Red Cell Distribution Width 20.1 % (11.5-14.5) Platelet Count 233 x10^3/uL (140-400) Neutrophils (%) (Auto) 74 % (31-73) Lymphocytes (%) (Auto) 5 % (24-48) Monocytes (%) (Auto) 19 % (0-9) Eosinophils (%) (Auto) 1 % (0-3) Basophils (%) (Auto) 1 % (0-3) Neutrophils # (Auto) 6.2 x10^3/uL (1.8-7.7) Lymphocytes # (Auto) 0.4 x10^3/uL (1.0-4.8) Monocytes # (Auto) 1.6 x10^3/uL (0.0-1.1) Eosinophils # (Auto) 0.1 x10^3/uL (0.0-0.7) Basophils # (Auto) 0.1 x10^3/uL (0.0-0.2) Sodium Level 136 mmol/L (136-145) Potassium Level 3.8 mmol/L (3.5-5.1) Chloride Level 105 mmol/L (98-107) Carbon Dioxide Level 24 mmol/L (21-32) Anion Gap 7 (6-14) Blood Urea Nitrogen 6 mg/dL (7-20) Creatinine 0.6 mg/dL (0.6-1.0) Estimated GFR (Cockcroft-Gault) 130.8 BUN/Creatinine Ratio 10 (6-20) Glucose Level 85 mg/dL (70-99) Calcium Level 7.9 mg/dL (8.5-10.1) Total Bilirubin 0.5 mg/dL (0.2-1.0) Aspartate Amino Transf (AST/SGOT) 24 U/L (15-37) Alanine Aminotransferase (ALT/SGPT) 21 U/L (14-59) Alkaline Phosphatase 136 U/L (46-116) Total Protein 5.4 g/dL (6.4-8.2) Albumin 2.0 g/dL (3.4-5.0) Albumin/Globulin Ratio 0.6 (1.0-1.7) Laboratory Tests Test 01/05/21 09:00 White Blood Count 8.4 x10^3/uL (4.0-11.0) Red Blood Count 3.32 x10^6/uL (3.50-5.40) Hemoglobin 9.6 g/dL (12.0-15.5) Hematocrit 29.1 % (36.0-47.0) Mean Corpuscular Volume 88 fL (79-100) Mean Corpuscular Hemoglobin 29 pg (25-35) Mean Corpuscular Hemoglobin Concent 33 g/dL (31-37) Red Cell Distribution Width 20.1 % (11.5-14.5) Platelet Count 233 x10^3/uL (140-400) Neutrophils (%) (Auto) 74 % (31-73) Lymphocytes (%) (Auto) 5 % (24-48) Monocytes (%) (Auto) 19 % (0-9) Eosinophils (%) (Auto) 1 % (0-3) Basophils (%) (Auto) 1 % (0-3) Neutrophils # (Auto) 6.2 x10^3/uL (1.8-7.7) Lymphocytes # (Auto) 0.4 x10^3/uL (1.0-4.8) Monocytes # (Auto) 1.6 x10^3/uL (0.0-1.1) Eosinophils # (Auto) 0.1 x10^3/uL (0.0-0.7) Basophils # (Auto) 0.1 x10^3/uL (0.0-0.2) Sodium Level 136 mmol/L (136-145) Potassium Level 3.8 mmol/L (3.5-5.1) Chloride Level 105 mmol/L (98-107) Carbon Dioxide Level 24 mmol/L (21-32) Anion Gap 7 (6-14) Blood Urea Nitrogen 6 mg/dL (7-20) Creatinine 0.6 mg/dL (0.6-1.0) Estimated GFR (Cockcroft-Gault) 130.8 BUN/Creatinine Ratio 10 (6-20) Glucose Level 85 mg/dL (70-99) Calcium Level 7.9 mg/dL (8.5-10.1) Total Bilirubin 0.5 mg/dL (0.2-1.0) Aspartate Amino Transf (AST/SGOT) 24 U/L (15-37) Alanine Aminotransferase (ALT/SGPT) 21 U/L (14-59) Alkaline Phosphatase 136 U/L (46-116) Total Protein 5.4 g/dL (6.4-8.2) Albumin 2.0 g/dL (3.4-5.0) Albumin/Globulin Ratio 0.6 (1.0-1.7) Medications Active Scripts Medications Dose Route/Sig Max Daily Dose Days Date Category Percocet 10-325 Mg Tablet (Oxycodone/Acetaminophen) 1 Each Tablet 1 Tab PO PRN Q4-6HRS PRN MDD 6 Tablet(s) 5 12/29/20 Reported Oxycontin (Oxycodone HCl) 10 Mg Tab.er.12h 1 Tab PO PRN 2-3XD PRN MDD 3 Tablet(s) 30 12/29/20 Reported Amlodipine Besylate 5 Mg Tablet Unknown Dose PO DAILY 12/29/20 Reported Meloxicam 7.5 Mg Tablet Unknown Dose PO DAILY 30 12/29/20 Reported Ferrous Sulfate 325 Mg Tablet 1 Tab PO DAILY 10/16/13 Reported Comments Chest x-ray reviewed 01/05/2021. Unchanged small right lower lobe pleural effusion with some partial loculation. Chest x-ray reviewed dated January 02, 2021 Small right-sided pleural effusion with some interstitial changes Impression . IMPRESSION: 1. Acute hypoxemic respiratory failure secondary to suspected malignant right pleural effusion. 2. Highly suspected malignant pleural effusion related to breast cancer, status post chest tube placement. Cytology from pleural fluid negative 3. Stage 4 breast cancer. 4. Neurofibromatosis. 5. Leukopenia./persistent, post chemo 6. Hypokalemia. Plan . 1. continue chest tube in place. Chest tube has been clamped for last several days. There has been not significant reaccumulation of pleural effusion on the right side to consider Pleurx catheter at this time. Patient also has a Pleurx catheter in her abdominal wall secondary to malignancy. 2. Empiric antibiotics. 3. Replace potassium. 4. pain control 5. Hematology recommendations regarding leukopenia. Count is now normalized 6. I have discussed with patient's RN./ IR. If pleural effusion does not significantly increase post clamping of the chest tube, will remove the chest tube and have her follow-up as an outpatient still the fluid reaccumulate's. She will then, at that time require Pleurx catheter BLANK RUDD MD Jan 05, 2021 10:16
[2021-01-05] MEDS: ONDANSETRON PF 4 MG/2 ML VIAL. IVP PRN (10:30)
[2021-01-05 11:00] VITALS: BP 121/78
--- NOTE | 2021-01-05 14:13 | NUR ---
Patient transported to vehicle by RN accompanied by family 2 members
== END 2021-01-05 13:30 | disposition home or self-care (01) | DRG 435 ==
LOC: 1 WEST ICU 21:00 → 4 NORTH 12-30 20:45
PROVIDERS: ADMIT Internal Medicine; ATTEND Internal Medicine
PROC: 0W9B30Z Drainage of Left Pleural Cavity with Drainage Device, Percutaneous Approach (ICD-10-PCS; principal; 2020-12-30)
DX: C78.7 Secondary malignant neoplasm of liver and intrahepatic bile duct (principal); J96.01 Acute respiratory failure with hypoxia; E43 Unspecified severe protein-calorie malnutrition; J91.0 Malignant pleural effusion; C78.00 Secondary malignant neoplasm of unspecified lung; C79.51 Secondary malignant neoplasm of bone; D61.818 Other pancytopenia; R18.8 Other ascites; C50.919 Malignant neoplasm of unspecified site of unspecified female breast; E87.6 Hypokalemia; G89.29 Other chronic pain; I10 Essential (primary) hypertension; Q85.00 Neurofibromatosis, unspecified; R62.7 Adult failure to thrive; Z85.3 Personal history of malignant neoplasm of breast; Z86.718 Personal history of other venous thrombosis and embolism; Z87.891 Personal history of nicotine dependence; Z90.710 Acquired absence of both cervix and uterus; Z92.21 Personal history of antineoplastic chemotherapy; Z95.828 Presence of other vascular implants and grafts
CPT/HCPCS: 36415; 71045; 80048; 80053; 82945; 84157; 85007; 85025; 85027; 87070; 87071; 87075; 87077; 87186; 88112; 88305; 89050; J0692; J2405; J3010; G0378; J1442

== ENCOUNTER 2021-03-09 19:14 | Inpatient (IN) | payer OTHER ==
[~2021-03-09] VITALS: Ht 162.6 cm; Wt 51.1 kg
[~2021-03-09 19:14] MED LIST changes: +AMLO-186 PO; +MELO7.5T29 PO; +OXYC10TA46 PO; +OXYC1TAB22 PO
--- NOTE | 2021-03-09 20:00 | RAD ---
AP chest. Short of air AP view of the chest was compared with a study from December 2020. The patient's developed a large le ft pleural effusion. Patient rotated to the right. There is a Port-A-Cath on the left unchanged. Ther e is mild hazy right lung atelectasis or infiltrates. IMPRESSION: 1. Development of a large left pleural effusion. 2. Residual right lung atelectasis or infiltrate. Electronically signed by: Oskar Chadwick MD (03/09/2021 7:57 PM) [facility]
--- NOTE | 2021-03-09 20:28 | PHYS DOC ---
Past Medical History Past Medical History: Other (neurofibromatosis, breast cancer met to bone and liver) Past Surgical History: Other Smoking Status: Former Smoker General Adult EDM: Chief Complaint: GI PROBLEM HPI: HPI: Patient is a 45 year old female with a history of breast cancer that metastasized to liver and bone, presented to ER feeling weak, having heartburn, feeling constipated. Patient'S sister said patient was acting confused. Patient had pleural effusion in the past that need redness. Patient had peritoneal drain follow ascites. Patient denies any abdominal pain, no chest pain, no cough or fever. Patient said she is having shortness of air with exertion. She felt dehydrated. Review of Systems: Review of Systems: Constitutional: Denies fever or chills. Positive for generalized weakness Eyes: Denies change in visual acuity. [] HENT: Denies nasal congestion or sore throat. [] Respiratory: Denies cough, Positive for shortness of breath. [] Cardiovascular: Denies chest pain or edema. [] GI: Denies abdominal pain, nausea, vomiting, bloody stools or diarrhea. Positive for constipation. : Denies dysuria. [] Musculoskeletal: Denies back pain or joint pain. Integument: Denies rash. [] Neurologic: Denies headache, focal weakness or sensory changes. [] Endocrine: Denies polyuria or polydipsia. [] Lymphatic: Denies swollen glands. [] Psychiatric: Denies depression or anxiety. [] Heart Score: C/O Chest Pain: N/A Risk Factors: Risk Factors: DM, Current or recent (<one month) smoker, HTN, HLP, family history of CAD, obesity. Risk Scores: Score 0 - 3: 2.5% MACE over next 6 weeks - Discharge Home Score 4 - 6: 20.3% MACE over next 6 weeks - Admit for Clinical Observation Score 7 - 10: 72.7% MACE over next 6 weeks - Early Invasive Strategies Allergies: Allergies: Allergies Coded Allergies Type Severity Reaction Last Updated Verified No Known Drug Allergies 10/16/13 No Physical Exam: PE: Constitutional: Well developed, well nourished, no acute distress, non-toxic appearance. [] HENT: Normocephalic, atraumatic, bilateral external ears normal, oropharynx moist, no oral exudates, nose normal. [] Eyes: PERRLA, EOMI, conjunctiva normal, no discharge. [] Neck: Normal range of motion, no tenderness, supple, no stridor. [] Cardiovascular:Heart rate regular rhythm, no murmur [] Lungs & Thorax: DIMINISHED AIR MOVEMENT ON LEFT SIDE, CRACKLES ON RIGHT LUNG BASE. Abdomen: Bowel sounds normal, mild distension, DRAIN SYSTEM ON RIGHT UPPER QUADRANT AREA, s. [] Skin: Warm, dry, no erythema, NEUROFRIBROMATOSIS SKIN LESION, NODULES. Back: No tenderness, no CVA tenderness. [] Extremities: No tenderness, no cyanosis, no clubbing, ROM intact, no edema. [] Neurologic: Alert and oriented X 3, normal motor function, normal sensory function, no focal deficits noted. [] Psychologic: Affect normal, judgement normal, mood normal. [] Current Patient Data: Labs: Laboratory Tests Test 03/09/21 20:38 03/09/21 22:37 White Blood Count 2.8 x10^3/uL Red Blood Count 3.11 x10^6/uL Hemoglobin 8.9 g/dL Hematocrit 27.1 % Mean Corpuscular Volume 87 fL Mean Corpuscular Hemoglobin 29 pg Mean Corpuscular Hemoglobin Concent 33 g/dL Red Cell Distribution Width 22.5 % Platelet Count 306 x10^3/uL Neutrophils (%) (Auto) 56 % Lymphocytes (%) (Auto) 11 % Monocytes (%) (Auto) 30 % Eosinophils (%) (Auto) 1 % Basophils (%) (Auto) 2 % Neutrophils # (Auto) 1.5 x10^3/uL Lymphocytes # (Auto) 0.3 x10^3/uL Monocytes # (Auto) 0.8 x10^3/uL Eosinophils # (Auto) 0.0 x10^3/uL Basophils # (Auto) 0.0 x10^3/uL Segmented Neutrophils % 43 % Band Neutrophils % 12 % Lymphocytes % 17 % Monocytes % 27 % Basophils % 1 % Platelet Estimate Adequate Poikilocytosis Slight Anisocytosis Mod Tear Drop Cells Occ Ovalocytes Few Sodium Level 132 mmol/L Potassium Level 4.8 mmol/L Chloride Level 98 mmol/L Carbon Dioxide Level 22 mmol/L Anion Gap 12 Blood Urea Nitrogen 50 mg/dL Creatinine 3.8 mg/dL Estimated GFR (Cockcroft-Gault) 15.5 BUN/Creatinine Ratio 13 Glucose Level 107 mg/dL Calcium Level 7.7 mg/dL Magnesium Level 2.5 mg/dL Total Bilirubin 0.5 mg/dL Aspartate Amino Transf (AST/SGOT) 42 U/L Alanine Aminotransferase (ALT/SGPT) 21 U/L Alkaline Phosphatase 458 U/L Total Protein 5.9 g/dL Albumin 2.0 g/dL Albumin/Globulin Ratio 0.5 Lipase 335 U/L SARS-CoV-2 Antigen (Rapid) Negative Current Medications Medications (Trade) Dose Ordered Sig/Susie Route PRN Reason Start Time Stop Time Status Last Admin Dose Admin Multi-Ingredient Mouthwash/Gargle (Gi Cocktail) 20 ml 1X ONCE SWSW 03/09/21 20:30 03/09/21 20:31 DC 03/09/21 20:30 Famotidine (Pepcid Vial) 20 mg 1X ONCE IVP 03/09/21 20:30 03/09/21 20:31 DC 03/09/21 20:30 Vital Signs: Vital Signs Date Time Temp Pulse Resp B/P (MAP) Pulse Ox O2 Delivery O2 Flow Rate FiO2 03/09/21 19:50 98.1 111 18 99/58 (72) 95 Room Air 98.1 EKG: EKG: [] Radiology/Procedures: Radiology/Procedures: [][facility] [address] [place], [place] [id number] IMAGING REPORT Signed PATIENT: AMMON RIVERA ACCOUNT: [id number] : 1975 LOCATION: ER AGE: 45 SEX: F EXAM STATUS: REG ER ORD. PHYSICIAN: KINGA RIVER DO REASON: abdominal distension, constipation PROCEDURE: ABDOMEN SUPINE & UPRIGHT Abdominal radiograph 03/09/2021 8:25 PM Indication: Abdominal distention, constipation . Comparison: None. Technique: Frontal supine and upright radiographs of the abdomen were obtained. Findings: There is no free intraperitoneal air. There is no portal venous gas. No pneumatosis coli. Catheter projects over the left upper quadrant abdomen. There are no dilated loops of small or large bowel. There are no differential air-fluid levels. There is no organomegaly. No suspicious calcifications are identified along the expected course of the genitourinary tract. Sclerotic changes are identified involving the lumbar spine. Patchy areas of sclerosis identified involving the left femoral head and left inferior pubic ramus. IMPRESSION Nonobstructed bowel gas pattern. Sclerotic changes involving the lumbar spine and patchy areas of sclerosis involving the left femoral head and inferior pubic ramus are nonspecific. Jaret mills cross-sectional imaging could be of benefit to assess for underlying neoplastic causes such as osteoblastic metastatic disease. Electronically signed by: Osorio Evans MD (03/09/2021 8:39 PM) [facility] DICTATED and SIGNED BY: OSORIO EVANS MD DATE: 03/09/[id number] 0 [facility] [address] [place], [place] [id number] IMAGING REPORT Signed PATIENT: AMMON RIVERA ACCOUNT: [id number] : 1975 LOCATION: ER AGE: 45 SEX: F EXAM STATUS: REG ER ORD. PHYSICIAN: KINGA RIVER DO REASON: soa PROCEDURE: CHEST AP ONLY AP chest. Short of air AP view of the chest was compared with a study from December 2020. The patient's developed a large left pleural effusion. Patient rotated to the right. There is a Port-A-Cath on the left unchanged. There is mild hazy right lung atelectasis or infiltrates. IMPRESSION: 1. Development of a large left pleural effusion. 2. Residual right lung atelectasis or infiltrate. Electronically signed by: Oskar Chadwick MD (03/09/2021 7:57 PM) [facility] DICTATED and SIGNED BY: OSKAR CHADWICK MD DATE: 03/09/219665OUH3 0 Course & Med Decision Making: Course & Med Decision Making Pertinent Labs and Imaging studies reviewed. (See chart for details) Patient is a 45-year-old female who had breast cancer that metastasized to her bones and liver, presented to ER due to generalized weakness, patient feels dehydrated. Patient was found to be dehydrated with renal failure. She also had a lARGE pleural effusion on the left side. Patient will be admitted to hospital for further evaluation and treatment. Discussed with Dr. Pleitez who agreed to admit the patient Corey Disclaimer: Corey Disclaimer: This electronic medical record was generated, in whole or in part, using a voice recognition dictation system. Departure Departure Impression: Primary Impression: Acute renal failure Additional Impressions: Dehydration Pleural effusion, left Breast cancer Disposition: ADMITTED INPATIENT Admitting Physician: MARY (DR. PLEITEZ) Condition: STABLE Referrals: HUMBERTO ESCALONA (PCP) KINGA RIVER DO Mar 09, 2021 20:28
[2021-03-09] MEDS ORDERED: FAMOTIDINE 20 MG/2 ML VIAL IVP ONE (20:30)
[2021-03-09] MEDS ORDERED: LIDO:MAALOX 1:1 20 ML SINGLE DOSE. SWSW ONE (20:30)
--- NOTE | 2021-03-09 20:42 | RAD ---
Abdominal radiograph 03/09/2021 8:25 PM Indication: Abdominal distention, constipation . Comparison: None. Technique: Frontal supine and upright radiographs of the abdomen were obtained. Findings: There is no free intraperitoneal air. There is no portal venous gas. No pneumatosis coli. Catheter pr ojects over the left upper quadrant abdomen. There are no dilated loops of small or large bowel. There are no differential air-fluid levels. There is no organomegaly. No suspicious calcifications are identified along the expected course of the genitourinary tract. Scl erotic changes are identified involving the lumbar spine. Patchy areas of sclerosis identified involv ing the left femoral head and left inferior pubic ramus. IMPRESSION Nonobstructed bowel gas pattern. Sclerotic changes involving the lumbar spine and patchy areas of sclerosis involving the left femoral head and inferior pubic ramus are nonspecific. Dedicated cross-sectional imaging could be of benefit to assess for underlying neoplastic causes such as osteoblastic metastatic disease. Electronically signed by: Kathie Steele MD (03/09/2021 8:39 PM) [facility]
[2021-03-09 20:48] LABS: BASO % 2 % (0-3); EOS % 1 % (0-3); HEMATOCRIT 27.1 % (36.0-47.0); HEMOGLOBIN 8.9 g/dL (12.0-15.5); LYMPH # 0.3 x10^3/uL (1.0-4.8); LYMPH % 11 % (24-48); MEAN CORPUSCULAR HEMOGLOBIN 29 pg (25-35); MEAN CORPUSCULAR HGB CONC 33 g/dL (31-37); MEAN CORPUSCULAR VOLUME 87 fL (79-100); MONO # 0.8 x10^3/uL (0.0-1.1); MONO % 30 % (0-9); NEUT # 1.5 x10^3/uL (1.8-7.7); NEUT % 56 % (31-73); PLATELET COUNT 306 x10^3/uL (140-400); RED BLOOD COUNT 3.11 x10^6/uL (3.50-5.40); RED CELL DISTRIBUTION WIDTH 22.5 % (11.5-14.5); WHITE BLOOD COUNT 2.8 x10^3/uL (4.0-11.0)
[2021-03-09 20:57] LABS: CALCIUM 7.7 mg/dL (8.5-10.1); CREATININE 3.8 mg/dL (0.6-1.0); GFR 15.5; POTASSIUM 4.8 mmol/L (3.5-5.1)
[2021-03-09 21:05] LABS: ALBUMIN/GLOBULIN RATIO 0.5 (1.0-1.7); MAGNESIUM 2.5 mg/dL (1.8-2.4); TOTAL BILIRUBIN 0.5 mg/dL (0.2-1.0); TOTAL PROTEIN 5.9 g/dL (6.4-8.2)
[2021-03-09 21:24] LABS: % BANDS 12 % (0-9); % BASOS 1 % (0-3); % LYMPHS 17 % (24-48); % MONOS 27 % (0-10); % SEGS 43 % (35-66)
[2021-03-09 21:25] LABS: ANISOCYTOSIS MOD; PLT ESTIMATE ADEQUATE (ADEQUATE); POIKILOCYTOSIS SLIGHT
[2021-03-09 21:27] LABS: OVALOCYTES FEW; TEAR DROP CELLS OCC
[2021-03-09] MEDS ORDERED: IV NORMAL SALINE 500ML BAG 500 ML IV ONE (21:30)
[2021-03-09] MEDS ORDERED: ONDANSETRON PF 4 MG/2 ML VIAL. IVP PRN (22:00)
[2021-03-09 23:00] VITALS: BP 91/70
[2021-03-10] MEDS: IV NORMAL SALINE 1000ML BAG 1,000 ML IV SCH ×3 (01:30→17:17)
[2021-03-10 03:35] VITALS: BP 94/55
[2021-03-10 07:00] VITALS: BP 82/52
[2021-03-10] MEDS: oxyCODONE IR 5 MG TABLET PO PRN (08:40)
[2021-03-10] MEDS ORDERED: fentaNYL PF VIAL 100 MCG/2 ML VIAL ONE (08:57)
[2021-03-10] MEDS ORDERED: LIDOCAINE WITH 8.4% SOD BICARB 3 ML DISP.SYRIN. ONE (08:57)
[2021-03-10] MEDS ORDERED: MIDAZOLAM HCL/PF 2 MG/2 ML VIAL. ONE (08:57)
--- NOTE | 2021-03-10 09:08 | PDOC1 ---
History and Physical Date of Admission Date of Admission DATE: 03/10/21 TIME: 08:48 Source Source: Chart review, Patient History of Present Illness History of Present Illness Judi Rodas is a 45-year-old female with metastatic breast cancer, admit last night with weakness and confusion. . She sees Dr. Maury Rascon at [facility] [place]. She is currently receiving palliative chemotherapy. She was admitted here 2 mos ago with pleural effusion, had chest tube, 7 day admit. returns last night with marked weakness and confusoin. labs changed, renal failure, looks dry, no pain at rest, is sleeping hard, and after I talked to her and returned to clarify, she was hard asleep again. looks thin and frail with muscle wasting. Past Medical History Cardiovascular: No pertinent hx Pulmonary: Other (effusion) Heme/Onc: Cancer Past Surgical History Past Surgical History: No pertinent history Family History Family History: No Significant Social History Smoke: No ALCOHOL: none Drugs: None Current Problem List Problem List Problems Medical Problems: (1) Acute renal failure Status: Acute (2) Breast cancer Status: Acute (3) Dehydration Status: Acute (4) Pleural effusion, left Status: Acute Current Medications Current Medications Current Medications Multi-Ingredient Mouthwash/Gargle (Gi Cocktail) 20 ml 1X ONCE SWSW Last administered on 03/09/21at 20:30; Start 03/09/21 at 20:30; Stop 03/09/21 at 20: 31; Status DC Famotidine (Pepcid Vial) 20 mg 1X ONCE IVP Last administered on 03/09/21at 20:30; Start 03/09/21 at 20:30; Stop 03/09/21 at 20:31; Status DC Sodium Chloride 500 ml @ 500 mls/hr 1X ONCE IV Last administered on 03/09/21at 21:30; Start 03/09/21 at 21:30; Stop 03/09/21 at 22:29; Status DC Ondansetron HCl (Zofran) 4 mg PRN Q8HRS PRN IVP NAUSEA/VOMITING 1ST CHOICE; Start 03/09/21 at 22:00; Stop 03/10/21 at 21:59 Sodium Chloride 1,000 ml @ 100 mls/hr Q10H IV Last administered on 03/10/21at 01:30; Start 03/09/21 at 22:00; Stop 03/10/21 at 21:59 Oxycodone HCl (Roxicodone) 5 mg PRN Q3HRS PRN PO PAIN Last administered on 03/10/21at 08:40; Start 03/10/21 at 07:00 Active Scripts Active Percocet 10-325 Mg Tablet (Oxycodone/Acetaminophen) 1 Each Tablet 1 Tab PO PRN Q6HRS PRN 30 Days Oxycontin (Oxycodone HCl) 10 Mg Tab.er.12h 1 Tab PO BID MDD 2 Tablet(s) 30 Days Reported Amlodipine Besylate 5 Mg Tablet Unknown Dose PO DAILY Meloxicam 7.5 Mg Tablet Unknown Dose PO DAILY 30 Days Ferrous Sulfate 325 Mg Tablet 1 Tab PO DAILY Allergies Allergies: Coded Allergies: No Known Drug Allergies (Unverified , 03/09/21) ROS General: No: Chills, Night Sweats, Fatigue, Malaise, Appetite, Other PSYCHOLOGICAL ROS: YES: Anxiety, Concentration difficultie, Irritablity, Memory difficulties Eyes: No Blurry vision, No Decreased vision, No Double vision, No Dry eyes, No Excessive tearing, No Eye Pain, No Itchy Eyes, No Loss of vision, No Photophobia, No Scotomata, No Uses contacts, No Uses glasses, No Other HEENT: YES: Heacaches; No: Visual Changes, Hearing change, Nasal congestion, Nasal discharge, Oral lesions, Sinus pain, Sore Throat, Epistaxis, Sneezing, Snoring, Tinnitus, Vertigo, Vocal changes, Other Respiratory: YES: Shortness of breath, SOB with excertion Cardiovascular: yes Chest Pain Gastrointestinal: Yes Nausea; No Vomiting, No Abdominal Pain, No Diarrhea, No Constipation, No Melena, No Hematochezia, No Other Genitourinary: No Dysuria, No Frequency, No Incontinence, No Hematuria, No Rete ntion, No Discharge, No Urgency, No Pain, No Flank Pain, No Other, No , No , No , No , No , No , No Musculoskeletal: Yes Joint Stiffness, Yes Muscular Weakness Neurological: No Behavorial Changes, No Bowel/Bladder ControlChng, No Confusion, No Dizziness, No Gait Disturbance, No Headaches, No Impaired Coord/balance, No Memory Loss, No Numbness/Tingling, No Seizures, No Speech Problems, No Tremors, No Visual Changes, No Weakness, No Other Skin: Yes Dry Skin, Yes Mole Changes, Yes Rash, Yes Skin Lesion Changes; No Eczema, No Hair Changes, No Lumps, No Mottling, No Nail Changes, No Pruritus, No Other, No Acne Physical Exam General: Alert, mild distress HEENT: PERRLA Lungs: Other (left dull and egophony) Breasts: Lt breast nml w/o mass Abdomen: Normal bowel sounds, Soft Rectal Exam: not examined Skin: Other (many large bullous lesions throughout, 0.2cm to almost 2 cm, varied and frequent) Neuro: Sensation intact Psych/Mental Status: Other (flat affect, lethargic ) Vitals Vitals Vital Signs Date Time Temp Pulse Resp B/P (MAP) Pulse Ox O2 Delivery O2 Flow Rate FiO2 03/10/21 03:35 98.6 104 20 94/55 (68) 91 Room Air 98.6 Labs Labs Laboratory Tests Test 03/09/21 20:38 03/09/21 22:37 White Blood Count 2.8 x10^3/uL (4.0-11.0) Red Blood Count 3.11 x10^6/uL (3.50-5.40) Hemoglobin 8.9 g/dL (12.0-15.5) Hematocrit 27.1 % (36.0-47.0) Mean Corpuscular Volume 87 fL (79-100) Mean Corpuscular Hemoglobin 29 pg (25-35) Mean Corpuscular Hemoglobin Concent 33 g/dL (31-37) Red Cell Distribution Width 22.5 % (11.5-14.5) Platelet Count 306 x10^3/uL (140-400) Neutrophils (%) (Auto) 56 % (31-73) Lymphocytes (%) (Auto) 11 % (24-48) Monocytes (%) (Auto) 30 % (0-9) Eosinophils (%) (Auto) 1 % (0-3) Basophils (%) (Auto) 2 % (0-3) Neutrophils # (Auto) 1.5 x10^3/uL (1.8-7.7) Lymphocytes # (Auto) 0.3 x10^3/uL (1.0-4.8) Monocytes # (Auto) 0.8 x10^3/uL (0.0-1.1) Eosinophils # (Auto) 0.0 x10^3/uL (0.0-0.7) Basophils # (Auto) 0.0 x10^3/uL (0.0-0.2) Segmented Neutrophils % 43 % (35-66) Band Neutrophils % 12 % (0-9) Lymphocytes % 17 % (24-48) Monocytes % 27 % (0-10) Basophils % 1 % (0-3) Platelet Estimate Adequate (ADEQUATE) Poikilocytosis Slight Anisocytosis Mod Tear Drop Cells Occ Ovalocytes Few Sodium Level 132 mmol/L (136-145) Potassium Level 4.8 mmol/L (3.5-5.1) Chloride Level 98 mmol/L (98-107) Carbon Dioxide Level 22 mmol/L (21-32) Anion Gap 12 (6-14) Blood Urea Nitrogen 50 mg/dL (7-20) Creatinine 3.8 mg/dL (0.6-1.0) Estimated GFR (Cockcroft-Gault) 15.5 BUN/Creatinine Ratio 13 (6-20) Glucose Level 107 mg/dL (70-99) Calcium Level 7.7 mg/dL (8.5-10.1) Magnesium Level 2.5 mg/dL (1.8-2.4) Total Bilirubin 0.5 mg/dL (0.2-1.0) Aspartate Amino Transf (AST/SGOT) 42 U/L (15-37) Alanine Aminotransferase (ALT/SGPT) 21 U/L (14-59) Alkaline Phosphatase 458 U/L (46-116) Total Protein 5.9 g/dL (6.4-8.2) Albumin 2.0 g/dL (3.4-5.0) Albumin/Globulin Ratio 0.5 (1.0-1.7) Lipase 335 U/L (73-393) SARS-CoV-2 Antigen (Rapid) Negative (NEGATIVE) Laboratory Tests Test 03/09/21 20:38 03/09/21 22:37 White Blood Count 2.8 x10^3/uL (4.0-11.0) Red Blood Count 3.11 x10^6/uL (3.50-5.40) Hemoglobin 8.9 g/dL (12.0-15.5) Hematocrit 27.1 % (36.0-47.0) Mean Corpuscular Volume 87 fL (79-100) Mean Corpuscular Hemoglobin 29 pg (25-35) Mean Corpuscular Hemoglobin Concent 33 g/dL (31-37) Red Cell Distribution Width 22.5 % (11.5-14.5) Platelet Count 306 x10^3/uL (140-400) Neutrophils (%) (Auto) 56 % (31-73) Lymphocytes (%) (Auto) 11 % (24-48) Monocytes (%) (Auto) 30 % (0-9) Eosinophils (%) (Auto) 1 % (0-3) Basophils (%) (Auto) 2 % (0-3) Neutrophils # (Auto) 1.5 x10^3/uL (1.8-7.7) Lymphocytes # (Auto) 0.3 x10^3/uL (1.0-4.8) Monocytes # (Auto) 0.8 x10^3/uL (0.0-1.1) Eosinophils # (Auto) 0.0 x10^3/uL (0.0-0.7) Basophils # (Auto) 0.0 x10^3/uL (0.0-0.2) Segmented Neutrophils % 43 % (35-66) Band Neutrophils % 12 % (0-9) Lymphocytes % 17 % (24-48) Monocytes % 27 % (0-10) Basophils % 1 % (0-3) Platelet Estimate Adequate (ADEQUATE) Poikilocytosis Slight Anisocytosis Mod Tear Drop Cells Occ Ovalocytes Few Sodium Level 132 mmol/L (136-145) Potassium Level 4.8 mmol/L (3.5-5.1) Chloride Level 98 mmol/L (98-107) Carbon Dioxide Level 22 mmol/L (21-32) Anion Gap 12 (6-14) Blood Urea Nitrogen 50 mg/dL (7-20) Creatinine 3.8 mg/dL (0.6-1.0) Estimated GFR (Cockcroft-Gault) 15.5 BUN/Creatinine Ratio 13 (6-20) Glucose Level 107 mg/dL (70-99) Calcium Level 7.7 mg/dL (8.5-10.1) Magnesium Level 2.5 mg/dL (1.8-2.4) Total Bilirubin 0.5 mg/dL (0.2-1.0) Aspartate Amino Transf (AST/SGOT) 42 U/L (15-37) Alanine Aminotransferase (ALT/SGPT) 21 U/L (14-59) Alkaline Phosphatase 458 U/L (46-116) Total Protein 5.9 g/dL (6.4-8.2) Albumin 2.0 g/dL (3.4-5.0) Albumin/Globulin Ratio 0.5 (1.0-1.7) Lipase 335 U/L (73-393) SARS-CoV-2 Antigen (Rapid) Negative (NEGATIVE) VTE Prophylaxis Ordered VTE Prophylaxis Devices: No VTE Pharmacological Prophylaxi: Yes Assessment/Plan Assessment/Plan plueral effusion, LEft, recurrent from 2 months ago. Acute renal fialure, ATN and vasomotor, hydrate, consult renal check UA, renal US Metastatic breast cancer Normocytic anemia Neutropenia secondary to antineoplastic therapy Malignant pleural effusion Failure to thrive, severe malnutrition weakness and debility I discussed plan with her sister, Vanda, . Judi follows with Dr. Rascon, and mentioned this AM that she wants to stop chemotherapy, currently ill and confused, will need to revisit if we cant get some improvement to above issues. FULL Code, discussed Advanced care planning 22 minutes Justifications for Admission Other Justification MIYA PLEITEZ MD Mar 10, 2021 09:08
--- NOTE | 2021-03-10 09:52 | RAD ---
EXAM: Renal sonogram. HISTORY: Renal failure. TECHNIQUE: Sonographic imaging the kidneys and bladder was performed. COMPARISON: CT dated 12/29/2020. FINDINGS: The left kidney is obscured due to ascites and bowel gas. The right kidney is normal in siz e. There is no hydronephrosis or suspicious right renal lesion. The bladder is unremarkable. There is a right pleural effusion. IMPRESSION: 1. Sonographically unremarkable right kidney. 2. Obscured left kidney due to a small amount of abdominal ascites. 3. Right pleural effusion. 4. Note is made that multiple liver lesions demonstrated on the comparison CT are not formally assess ed on this exam. Electronically signed by: Maria A Guerrero MD (03/10/2021 9:50 AM) [id number]
[2021-03-10 10:09] LABS: CALCIUM 6.9 mg/dL (8.5-10.1); CREATININE 3.2 mg/dL (0.6-1.0); POTASSIUM 4.6 mmol/L (3.5-5.1)
[2021-03-10 10:12] LABS: PROTHROMBIN TIME PATIENT 14.4 SEC (11.7-14.0)
[2021-03-10 11:22] VITALS: BP 92/61
[2021-03-10 11:36] VITALS: BP 101/63
--- NOTE | 2021-03-10 11:40 | PDOC2 ---
CONSULT Date of Consult Date of Consult DATE: 03/10/21 TIME: 11:31 Reason for Consult Reason for Consult: BARTOLO Referring Physician Referring Physician: MAIK Identification/Chief Complaint Chief Complaint WEAKNESS Source Source: Chart review, Patient History of Present Illness Reason for Visit: THIS IS A 45 YR OLD ADMITTED WITH WEAKNESS. HAS HX OF MET BREAST CANCER. ON PALLIATIVE CHEMO. LAST CHEMO ON 02-16. NOTED TO HAVE BARTOLO. STATES THAT SHE HAS NOT BEEN ABLE TO VOID WELL. NO HX OF CKD. RECENT NEPHROTOXIN EXPOSURE INCLUDES MOBIC. SHE IS HEMODYNAMICALL STABLE. SHE ALSO HAS A PLEURAL EFFUSION AND IS NEED OF A TAP. OTHER PERTINENT HX INCLUDES NEUROFIBROMATOSIS BUT SHE HAS NEVER HAS ANY RENAL ISSUES FROM IT. Past Medical History Past Medical History NEUROFIBROMATOSIS Cardiovascular: No pertinent hx Pulmonary: Other (effusion) Heme/Onc: Cancer Past Surgical History Past Surgical History: No pertinent history Family History Family History: No Significant Social History No ALCOHOL: none Drugs: None Current Problem List Problem List Problems Medical Problems: (1) Acute renal failure Status: Acute (2) Breast cancer Status: Acute (3) Dehydration Status: Acute (4) Pleural effusion, left Status: Acute Current Medications Current Medications Current Medications Multi-Ingredient Mouthwash/Gargle (Gi Cocktail) 20 ml 1X ONCE SWSW Last administered on 03/09/21at 20:30; Start 03/09/21 at 20:30; Stop 03/09/21 at 20:31; Status DC Famotidine (Pepcid Vial) 20 mg 1X ONCE IVP Last administered on 03/09/21at 20:30; Start 03/09/21 at 20:30; Stop 03/09/21 at 20:31; Status DC Sodium Chloride 500 ml @ 500 mls/hr 1X ONCE IV Last administered on 03/09/21at 21:30; Start 03/09/21 at 21:30; Stop 03/09/21 at 22:29; Status DC Ondansetron HCl (Zofran) 4 mg PRN Q8HRS PRN IVP NAUSEA/VOMITING 1ST CHOICE; Start 03/09/21 at 22:00; Stop 03/10/21 at 21:59 Sodium Chloride 1,000 ml @ 100 mls/hr Q10H IV Last administered on 03/10/21at 01:30; Start 03/09/21 at 22:00; Stop 03/10/21 at 21:59 Oxycodone HCl (Roxicodone) 5 mg PRN Q3HRS PRN PO PAIN Last administered on 03/10/21at 08:40; Start 03/10/21 at 07:00 Midazolam HCl (Versed) 2 mg STK-MED ONCE .ROUTE ; Start 03/10/21 at 08:57; Stop 03/10/21 at 08:57; Status DC Fentanyl Citrate (Fentanyl 2ml Vial) 100 mcg STK-MED ONCE .ROUTE ; Start 03/10/21 at 08:57; Stop 03/10/21 at 08:57; Status DC Lidocaine HCl (Buffered Lidocaine 1%) 3 ml STK-MED ONCE .ROUTE ; Start 03/10/21 at 08:57; Stop 03/10/21 at 08:57; Status DC Active Scripts Active Percocet 10-325 Mg Tablet (Oxycodone/Acetaminophen) 1 Each Tablet 1 Tab PO PRN Q6HRS PRN 30 Days Oxycontin (Oxycodone HCl) 10 Mg Tab.er.12h 1 Tab PO BID MDD 2 Tablet(s) 30 Days Reported Amlodipine Besylate 5 Mg Tablet Unknown Dose PO DAILY Meloxicam 7.5 Mg Tablet Unknown Dose PO DAILY 30 Days Ferrous Sulfate 325 Mg Tablet 1 Tab PO DAILY Allergies Allergies: Coded Allergies: No Known Drug Allergies (Unverified , 03/09/21) ROS General: YES: Fatigue, Malaise PSYCHOLOGICAL ROS: YES: Anxiety, Depression Eyes: Yes Decreased vision HEENT: YES: Heacaches Breast: Other (STAGE 4 BREAST CANCER) Gastrointestinal: Yes Nausea, Yes Constipation Genitourinary: YES Retention Musculoskeletal: Yes Joint Stiffness, Yes Muscular Weakness Neurological: Yes Weakness Physical Exam General: Alert, Oriented X3, No acute distress HEENT: Atraumatic, PERRLA Lungs: Clear to auscultation Heart: Regular rate, Normal S2 Abdomen: Normal bowel sounds, No tenderness Extremities: No clubbing Skin: No rashes, Other (NEUROFIBROMA LESIONS) Neuro: Normal speech, Cranial nerves 3-12 NL Psych/Mental Status: Mental status NL, Mood NL MUSCULOSKELETAL: No joint tenderness, No deformity, No swelling Vitals VITALS Vital Signs Date Time Temp Pulse Resp B/P (MAP) Pulse Ox O2 Delivery O2 Flow Rate FiO2 03/10/21 11:22 104 20 92/61 (71) 92 Room Air 03/10/21 07:00 98.6 98.6 Labs Labs Laboratory Tests Test 03/09/21 20:38 03/09/21 22:37 03/10/21 09:40 White Blood Count 2.8 x10^3/uL (4.0-11.0) Red Blood Count 3.11 x10^6/uL (3.50-5.40) Hemoglobin 8.9 g/dL (12.0-15.5) Hematocrit 27.1 % (36.0-47.0) Mean Corpuscular Volume 87 fL (79-100) Mean Corpuscular Hemoglobin 29 pg (25-35) Mean Corpuscular Hemoglobin Concent 33 g/dL (31-37) Red Cell Distribution Width 22.5 % (11.5-14.5) Platelet Count 306 x10^3/uL (140-400) Neutrophils (%) (Auto) 56 % (31-73) Lymphocytes (%) (Auto) 11 % (24-48) Monocytes (%) (Auto) 30 % (0-9) Eosinophils (%) (Auto) 1 % (0-3) Basophils (%) (Auto) 2 % (0-3) Neutrophils # (Auto) 1.5 x10^3/uL (1.8-7.7) Lymphocytes # (Auto) 0.3 x10^3/uL (1.0-4.8) Monocytes # (Auto) 0.8 x10^3/uL (0.0-1.1) Eosinophils # (Auto) 0.0 x10^3/uL (0.0-0.7) Basophils # (Auto) 0.0 x10^3/uL (0.0-0.2) Segmented Neutrophils % 43 % (35-66) Band Neutrophils % 12 % (0-9) Lymphocytes % 17 % (24-48) Monocytes % 27 % (0-10) Basophils % 1 % (0-3) Platelet Estimate Adequate (ADEQUATE) Poikilocytosis Slight Anisocytosis Mod Tear Drop Cells Occ Ovalocytes Few Sodium Level 132 mmol/L (136-145) 131 mmol/L (136-145) Potassium Level 4.8 mmol/L (3.5-5.1) 4.6 mmol/L (3.5-5.1) Chloride Level 98 mmol/L (98-107) 100 mmol/L (98-107) Carbon Dioxide Level 22 mmol/L (21-32) 21 mmol/L (21-32) Anion Gap 12 (6-14) 10 (6-14) Blood Urea Nitrogen 50 mg/dL (7-20) 44 mg/dL (7-20) Creatinine 3.8 mg/dL (0.6-1.0) 3.2 mg/dL (0.6-1.0) Estimated GFR (Cockcroft-Gault) 15.5 19.0 BUN/Creatinine Ratio 13 (6-20) Glucose Level 107 mg/dL (70-99) 91 mg/dL (70-99) Calcium Level 7.7 mg/dL (8.5-10.1) 6.9 mg/dL (8.5-10.1) Magnesium Level 2.5 mg/dL (1.8-2.4) Total Bilirubin 0.5 mg/dL (0.2-1.0) Aspartate Amino Transf (AST/SGOT) 42 U/L (15-37) Alanine Aminotransferase (ALT/SGPT) 21 U/L (14-59) Alkaline Phosphatase 458 U/L (46-116) Total Protein 5.9 g/dL (6.4-8.2) Albumin 2.0 g/dL (3.4-5.0) Albumin/Globulin Ratio 0.5 (1.0-1.7) Lipase 335 U/L (73-393) SARS-CoV-2 Antigen (Rapid) Negative (NEGATIVE) Prothrombin Time 14.4 SEC (11.7-14.0) Prothromb Time International Ratio 1.1 (0.8-1.1) Laboratory Tests Test 03/09/21 20:38 03/09/21 22:37 03/10/21 09:40 White Blood Count 2.8 x10^3/uL (4.0-11.0) Red Blood Count 3.11 x10^6/uL (3.50-5.40) Hemoglobin 8.9 g/dL (12.0-15.5) Hematocrit 27.1 % (36.0-47.0) Mean Corpuscular Volume 87 fL (79-100) Mean Corpuscular Hemoglobin 29 pg (25-35) Mean Corpuscular Hemoglobin Concent 33 g/dL (31-37) Red Cell Distribution Width 22.5 % (11.5-14.5) Platelet Count 306 x10^3/uL (140-400) Neutrophils (%) (Auto) 56 % (31-73) Lymphocytes (%) (Auto) 11 % (24-48) Monocytes (%) (Auto) 30 % (0-9) Eosinophils (%) (Auto) 1 % (0-3) Basophils (%) (Auto) 2 % (0-3) Neutrophils # (Auto) 1.5 x10^3/uL (1.8-7.7) Lymphocytes # (Auto) 0.3 x10^3/uL (1.0-4.8) Monocytes # (Auto) 0.8 x10^3/uL (0.0-1.1) Eosinophils # (Auto) 0.0 x10^3/uL (0.0-0.7) Basophils # (Auto) 0.0 x10^3/uL (0.0-0.2) Segmented Neutrophils % 43 % (35-66) Band Neutrophils % 12 % (0-9) Lymphocytes % 17 % (24-48) Monocytes % 27 % (0-10) Basophils % 1 % (0-3) Platelet Estimate Adequate (ADEQUATE) Poikilocytosis Slight Anisocytosis Mod Tear Drop Cells Occ Ovalocytes Few Sodium Level 132 mmol/L (136-145) 131 mmol/L (136-145) Potassium Level 4.8 mmol/L (3.5-5.1) 4.6 mmol/L (3.5-5.1) Chloride Level 98 mmol/L (98-107) 100 mmol/L (98-107) Carbon Dioxide Level 22 mmol/L (21-32) 21 mmol/L (21-32) Anion Gap 12 (6-14) 10 (6-14) Blood Urea Nitrogen 50 mg/dL (7-20) 44 mg/dL (7-20) Creatinine 3.8 mg/dL (0.6-1.0) 3.2 mg/dL (0.6-1.0) Estimated GFR (Cockcroft-Gault) 15.5 19.0 BUN/Creatinine Ratio 13 (6-20) Glucose Level 107 mg/dL (70-99) 91 mg/dL (70-99) Calcium Level 7.7 mg/dL (8.5-10.1) 6.9 mg/dL (8.5-10.1) Magnesium Level 2.5 mg/dL (1.8-2.4) Total Bilirubin 0.5 mg/dL (0.2-1.0) Aspartate Amino Transf (AST/SGOT) 42 U/L (15-37) Alanine Aminotransferase (ALT/SGPT) 21 U/L (14-59) Alkaline Phosphatase 458 U/L (46-116) Total Protein 5.9 g/dL (6.4-8.2) Albumin 2.0 g/dL (3.4-5.0) Albumin/Globulin Ratio 0.5 (1.0-1.7) Lipase 335 U/L (73-393) SARS-CoV-2 Antigen (Rapid) Negative (NEGATIVE) Prothrombin Time 14.4 SEC (11.7-14.0) Prothromb Time International Ratio 1.1 (0.8-1.1) Assessment/Plan Assessment/Plan IMP BARTOLO-CR OF 3.7-NO CKD DEHYDRATION STAGE 4 BREAST CANCER ONGOING PALLIATIVE CHEMO RETENTION? PLEURAL EFFUSION-MALIGNANT NEUTROPENIA NEUROFIBROMATOSIS PLAN HYDRATION RENAL SONO BLADDER SCAN HOLD MOBIC AND AVOID NEPHROTOXINS CHECK UA PEDRO BOND MD Mar 10, 2021 11:40
--- NOTE | 2021-03-10 11:47 | NUR ---
SW following. Discussed with RN, pt from home with sister, room air, regular diet, Rapid COVID-19 negative -PCR pending. Pulmonology and Nephrology following. Possible IR procedure today. RN advised no SW needs at this time. SW will continue to follow.
--- NOTE | 2021-03-10 12:24 | CONS ---
DATE OF CONSULTATION: 03/10/2021 PULMONARY CONSULTATION ATTENDING PHYSICIAN: Dr. Harris. REASON FOR CONSULTATION: Large left pleural effusion. HISTORY OF PRESENT ILLNESS: The patient is known to us from a previous admission. She is a 45-year-old female who has a stage IV breast cancer. She was last admitted and had a right sided pleural effusion, which required chest tube with subsequent removal. She was awaiting on an outpatient PleurX catheter. She is currently seeing Dr. Maury Rascon at [facility] and receiving palliative chemo. She was brought into the hospital with a complaint of some shortness of breath. She has some weakness and confusion. She also had renal failure. Her BUN is 44 and a creatinine of 3.2. It did improve from 3.8 yesterday. Her chest x-ray was reviewed and it showed a large left sided pleural effusion. There were residual right lung atelectasis or an infiltrate. I saw the patient in Interventional Radiology. Initially, a left chest tube was ordered. I have requested a PleurX catheter after talking to Dr. Harris and Interventional Radiology. PAST MEDICAL HISTORY: Significant for: 1. History of stage IV breast cancer. 2. History of neurofibromatosis. 3. History of paramalignant right pleural effusion, which required chest tube drainage. The cytology was negative. 4. Chemo-induced leukopenia on previous admission. SURGICAL HISTORY: Right-sided chest tubes and removal. ALLERGIES: None. MEDICATIONS: Reviewed as listed in the MRAD. REVIEW OF SYSTEMS: Twelve-point review of system obtained. Pertinent positives discussed in my present illness, otherwise noncontributory. All systems that were negative were reviewed as well. SOCIAL HISTORY: Denies tobacco use. FH: non contributary to lungs PHYSICAL EXAMINATION: VITAL SIGNS: Reviewed. Pulse ox 94% on room air, blood pressure is stable. Afebrile. NECK: Supple. LUNGS: With diminished breath sounds, left lung. CARDIOVASCULAR: With a regular rate. ABDOMEN: Soft, distended, nontender. EXTREMITIES: With trace pitting edema. LABORATORY DATA: Reviewed. Her rapid COVID is negative. BUN 44, creatinine 3.2, sodium 131. INR 1.1. White cell count 2.8. IMPRESSION: 1. Large left sided pleural effusion in a patient who has a stage IV breast cancer. She had previously right-sided paramalignant pleural effusion, which required chest tube drainage. The left effusion is likely malignant. Dr. Harris and initially ordered a left chest tube placement. I recommended that we should proceed with PleurX catheter. The patient is agreeable to that. 2. The patient with stage IV breast cancer, currently on palliative chemo. 3. Neurofibromatosis. 4. Leukopenia, likely related to chemo. RECOMMENDATIONS: 1. Discussed with Dr. Harris and Interventional Radiology. We will change the order to obstructive sleep apnea sided PleurX catheter. 2. Send pleural fluid for cytology and other analysis. 3. Follow Oncology recommendation. 4. Follow chest x-rays. 5. Home health with teaching of cell drainage with the PleurX catheter after placement. 6. We will follow along with you. 7. Discussed with Dr. Harris and the patient and Interventional Radiology. Addend: d/w IR. Patients COVID test just came back as positive. Will hold PleurX catheter for now and will do therapeutic thoracentesis and follow results. NORRIS DR: Yessica TID: [id number] MTDD
--- NOTE | 2021-03-10 13:08 | NUR ---
This RN received verbal orders from Dr. Flanagan to bladder scan pt and report results d/t pt not urinating. This RN bladder scanned pt which showed > 213 cc of retained urine. Pt then assisted to BSC and voided (250 cc of urine). This RN notified Dr. Flanagan of these results. No orders received at this time.
[2021-03-10 13:18] LABS: BILIRUBIN,URINE SMALL (NEG); CLARITY,URINE CLEAR; COLOR,URINE AMBER; NITRITE,URINE NEGATIVE (NEG); PH,URINE 5.5 (<5.0-8.0); PROTEIN,URINE NEGATIVE (NEG-TRACE); UROBILINOGEN,URINE 0.2 mg/dL (0.2 mg/dL)
[2021-03-10 13:29] LABS: HYALINE CASTS, URINE FEW /HPF
[2021-03-10 13:30] LABS: BACTERIA,URINE 0 /HPF (0-FEW); RBC,URINE 0 /HPF (0-2)
[2021-03-10] MEDS ORDERED: ceFAZolin SODIUM IV Push 1 GM VIAL. IVP ONE ×2 (14:01→14:15)
[2021-03-10] MEDS ORDERED: LIDOCAINE 2%/EPI 1:100,000 20 ML VIAL. ONE (14:03)
[2021-03-10] MEDS ORDERED: LIDOCAINE 2%/EPI 1:100,000 20 ML VIAL. IJ ONE (14:15)
[2021-03-10] MEDS ORDERED: MIDAZOLAM HCL/PF 2 MG/2 ML VIAL. IV ONE (14:15)
[2021-03-10] MEDS ORDERED: fentaNYL PF VIAL 100 MCG/2 ML VIAL IV ONE (14:15)
[2021-03-10 15:00] VITALS: BP 97/66
--- NOTE | 2021-03-10 16:46 | RAD ---
Site ID: [id number] EXAMINATION: Ultrasound guided thoracentesis (CPT 79433). INDICATION: 45 years Female Reason: left pleural effusion . . Pleural effusion. CONSENT: Informed consent was obtained from the patient. The risks, benefits, potential complications and alternatives were reviewed and all questions answered to the patient's satisfaction. PROCEDURE: After maximal barrier technique sterile preparation and draping, 1% lidocaine was utilized for local anesthesia. An appropriate intercostal approach is selected based on preliminary scanning with ultrasound. Under live visualization with ultrasound, 5 Icelandic drainage catheter is introduced with trocar technique in to the pleural space. Image of proper location of the needle is documented. The needle is removed and the sheath is left in the pleural space. A total of 1600 mL of serous fluid is drained. The sheath is removed at the end of the drainage proce dure. Fluid sample is sent to the lab for analysis. The patient tolerated the procedure well with no immediate complications. FINDINGS: Left nonloculated appearing pleural effusion. IMPRESSION: Successful ultrasound-guided Left thoracentesis. Electronically signed by: Merlin Gallegos MD (03/10/2021 4:44 PM) [id number]
--- NOTE | 2021-03-10 17:17 | NUR ---
IV fluids nonadministered by this RN, previous bag still infusing. Refer to EMAR for additional details.
[2021-03-10 19:51] VITALS: BP 90/67
[2021-03-11 07:00] VITALS: BP 100/73
[2021-03-11 07:34] LABS: BASO % 1 % (0-3); EOS % 1 % (0-3); HEMATOCRIT 28.6 % (36.0-47.0); HEMOGLOBIN 9.6 g/dL (12.0-15.5); LYMPH # 0.2 x10^3/uL (1.0-4.8); LYMPH % 9 % (24-48); MEAN CORPUSCULAR HEMOGLOBIN 29 pg (25-35); MEAN CORPUSCULAR HGB CONC 34 g/dL (31-37); MEAN CORPUSCULAR VOLUME 86 fL (79-100); MONO # 0.8 x10^3/uL (0.0-1.1); MONO % 29 % (0-9); NEUT # 1.6 x10^3/uL (1.8-7.7); NEUT % 61 % (31-73); PLATELET COUNT 346 x10^3/uL (140-400); RED BLOOD COUNT 3.32 x10^6/uL (3.50-5.40); RED CELL DISTRIBUTION WIDTH 22.3 % (11.5-14.5); WHITE BLOOD COUNT 2.7 x10^3/uL (4.0-11.0)
--- NOTE | 2021-03-11 07:39 | PDOC ---
PULMONARY PROGRESS NOTES DATE: 03/11/21 TIME: 07:37 Subjective is tired on RA Vitals Vital Signs Date Time Temp Pulse Resp B/P (MAP) Pulse Ox O2 Delivery O2 Flow Rate FiO2 03/10/21 19:51 97.9 107 16 90/67 (75) 94 Room Air 97.9 General: Alert HEENT: Other (nc at) Lungs: Other (no accessory muscle use) Cardiovascular: S1, S2 Extremities: No Edema Skin: No Rashes Labs Laboratory Tests Test 03/09/21 20:38 03/09/21 22:37 03/10/21 09:40 03/10/21 12:51 White Blood Count 2.8 x10^3/uL (4.0-11.0) Red Blood Count 3.11 x10^6/uL (3.50-5.40) Hemoglobin 8.9 g/dL (12.0-15.5) Hematocrit 27.1 % (36.0-47.0) Mean Corpuscular Volume 87 fL (79-100) Mean Corpuscular Hemoglobin 29 pg (25-35) Mean Corpuscular Hemoglobin Concent 33 g/dL (31-37) Red Cell Distribution Width 22.5 % (11.5-14.5) Platelet Count 306 x10^3/uL (140-400) Neutrophils (%) (Auto) 56 % (31-73) Lymphocytes (%) (Auto) 11 % (24-48) Monocytes (%) (Auto) 30 % (0-9) Eosinophils (%) (Auto) 1 % (0-3) Basophils (%) (Auto) 2 % (0-3) Neutrophils # (Auto) 1.5 x10^3/uL (1.8-7.7) Lymphocytes # (Auto) 0.3 x10^3/uL (1.0-4.8) Monocytes # (Auto) 0.8 x10^3/uL (0.0-1.1) Eosinophils # (Auto) 0.0 x10^3/uL (0.0-0.7) Basophils # (Auto) 0.0 x10^3/uL (0.0-0.2) Segmented Neutrophils % 43 % (35-66) Band Neutrophils % 12 % (0-9) Lymphocytes % 17 % (24-48) Monocytes % 27 % (0-10) Basophils % 1 % (0-3) Platelet Estimate Adequate (ADEQUATE) Poikilocytosis Slight Anisocytosis Mod Tear Drop Cells Occ Ovalocytes Few Sodium Level 132 mmol/L (136-145) 131 mmol/L (136-145) Potassium Level 4.8 mmol/L (3.5-5.1) 4.6 mmol/L (3.5-5.1) Chloride Level 98 mmol/L (98-107) 100 mmol/L (98-107) Carbon Dioxide Level 22 mmol/L (21-32) 21 mmol/L (21-32) Anion Gap 12 (6-14) 10 (6-14) Blood Urea Nitrogen 50 mg/dL (7-20) 44 mg/dL (7-20) Creatinine 3.8 mg/dL (0.6-1.0) 3.2 mg/dL (0.6-1.0) Estimated GFR (Cockcroft-Gault) 15.5 19.0 BUN/Creatinine Ratio 13 (6-20) Glucose Level 107 mg/dL (70-99) 91 mg/dL (70-99) Calcium Level 7.7 mg/dL (8.5-10.1) 6.9 mg/dL (8.5-10.1) Magnesium Level 2.5 mg/dL (1.8-2.4) Total Bilirubin 0.5 mg/dL (0.2-1.0) Aspartate Amino Transf (AST/SGOT) 42 U/L (15-37) Alanine Aminotransferase (ALT/SGPT) 21 U/L (14-59) Alkaline Phosphatase 458 U/L (46-116) Total Protein 5.9 g/dL (6.4-8.2) Albumin 2.0 g/dL (3.4-5.0) Albumin/Globulin Ratio 0.5 (1.0-1.7) Lipase 335 U/L (73-393) SARS-CoV-2 RNA (MONET) Positive (Negative) SARS-CoV-2 Antigen (Rapid) Negative (NEGATIVE) Prothrombin Time 14.4 SEC (11.7-14.0) Prothromb Time International Ratio 1.1 (0.8-1.1) Urine Collection Type Unknown Urine Color Judie Urine Clarity Clear Urine pH 5.5 (<5.0-8.0) Urine Specific [place] 1.020 (1.000-1.030) Urine Protein Negative mg/dL (NEG-TRACE) Urine Glucose (UA) Negative mg/dL (NEG) Urine Ketones (Stick) Negative mg/dL (NEG) Urine Blood Negative (NEG) Urine Nitrite Negative (NEG) Urine Bilirubin Small (NEG) Urine Urobilinogen Dipstick 0.2 mg/dL (0.2 mg/dL) Urine Leukocyte Esterase Negative (NEG) Urine RBC 0 /HPF (0-2) Urine WBC 1-4 /HPF (0-4) Urine Squamous Epithelial Cells Many /LPF Urine Renal Epithelial Cells Occ /LPF Urine Bacteria 0 /HPF (0-FEW) Urine Hyaline Casts Few /HPF Laboratory Tests Test 03/10/21 09:40 03/10/21 12:51 Prothrombin Time 14.4 SEC (11.7-14.0) Prothromb Time International Ratio 1.1 (0.8-1.1) Sodium Level 131 mmol/L (136-145) Potassium Level 4.6 mmol/L (3.5-5.1) Chloride Level 100 mmol/L (98-107) Carbon Dioxide Level 21 mmol/L (21-32) Anion Gap 10 (6-14) Blood Urea Nitrogen 44 mg/dL (7-20) Creatinine 3.2 mg/dL (0.6-1.0) Estimated GFR (Cockcroft-Gault) 19.0 Glucose Level 91 mg/dL (70-99) Calcium Level 6.9 mg/dL (8.5-10.1) Urine Collection Type Unknown Urine Color Judie Urine Clarity Clear Urine pH 5.5 (<5.0-8.0) Urine Specific [place] 1.020 (1.000-1.030) Urine Protein Negative mg/dL (NEG-TRACE) Urine Glucose (UA) Negative mg/dL (NEG) Urine Ketones (Stick) Negative mg/dL (NEG) Urine Blood Negative (NEG) Urine Nitrite Negative (NEG) Urine Bilirubin Small (NEG) Urine Urobilinogen Dipstick 0.2 mg/dL (0.2 mg/dL) Urine Leukocyte Esterase Negative (NEG) Urine RBC 0 /HPF (0-2) Urine WBC 1-4 /HPF (0-4) Urine Squamous Epithelial Cells Many /LPF Urine Renal Epithelial Cells Occ /LPF Urine Bacteria 0 /HPF (0-FEW) Urine Hyaline Casts Few /HPF Medications Active Scripts Medications Dose Route/Sig Max Daily Dose Days Date Category Percocet 10-325 Mg Tablet (Oxycodone/Acetaminophen) 1 Each Tablet 1 Tab PO PRN Q6HRS PRN 01/05/21 Rx Oxycontin (Oxycodone HCl) 10 Mg Tab.er.12h 1 Tab PO BID MDD 2 Tablet(s) 01/05/21 Rx Amlodipine Besylate 5 Mg Tablet Unknown Dose PO DAILY 12/29/20 Reported Meloxicam 7.5 Mg Tablet Unknown Dose PO DAILY 12/29/20 Reported Ferrous Sulfate 325 Mg Tablet 1 Tab PO DAILY 10/16/13 Reported Impression . IMPRESSION: 1. Large left sided pleural effusion in a patient who has a stage IV breast cancer. She had previously right-sided paramalignant pleural effusion, which required chest tube drainage. The left effusion is likely malignant. Dr. Harris and initially ordered a left chest tube placement. I recommended that we should proceed with PleurX catheter. The patient is agreeable to that. 2. The patient with stage IV breast cancer, currently on palliative chemo. 3. Neurofibromatosis. 4. Leukopenia, likely related to chemo. Plan . RECOMMENDATIONS: 1. 02 titration 2. s/p thoracentesis 03/10 1600 cc fluid evacutated Send pleural fluid for cytology and other analysis. 3. Follow Oncology recommendation. 4. Follow chest x-rays. 5. covid + pleurex on hold for now 6. We will follow along with you. QUIQUE NARVAEZ MD Mar 11, 2021 07:39
[2021-03-11 07:48] LABS: ALBUMIN 1.7 g/dL (3.4-5.0); ALBUMIN/GLOBULIN RATIO 0.5 (1.0-1.7); CALCIUM 7.5 mg/dL (8.5-10.1); CREATININE 2.2 mg/dL (0.6-1.0); GFR 29.2; POTASSIUM 4.9 mmol/L (3.5-5.1); TOTAL BILIRUBIN 0.4 mg/dL (0.2-1.0); TOTAL PROTEIN 5.4 g/dL (6.4-8.2)
[2021-03-11] MEDS: oxyCODONE IR 5 MG TABLET PO PRN ×2 (09:33→11:30)
[2021-03-11] MEDS: ONDANSETRON PF 4 MG/2 ML VIAL. IVP PRN (10:08)
[2021-03-11 11:00] VITALS: BP 102/81
--- NOTE | 2021-03-11 11:50 | PDOC ---
[facility] PROGRESS NOTE Date of Service DOS: DATE: 03/11/21 TIME: 11:49 Chief Complaint Chief Complaint COVID 19, plueral effusion, LEft, malignant, recurrent from 2 months ago. Acute renal fialure, ATN and vasomotor, hydrate, consult renal check UA, renal US Metastatic breast cancer Normocytic anemia Neutropenia secondary to antineoplastic therapy Malignant pleural effusion Failure to thrive, severe malnutrition weakness and debility History of Present Illness History of Present Illness supportive care PT when able DC when able to manage at home I discussed with sister yesterday Vitals/I&O Vitals/I&O: Vital Signs Date Time Temp Pulse Resp B/P (MAP) Pulse Ox O2 Delivery O2 Flow Rate FiO2 03/11/21 09:33 16 Room Air 03/11/21 07:00 98.5 114 100/73 (82) 91 98.5 I & O 03/10/21 03/10/21 03/11/21 15:00 23:00 07:00 Intake Total 1000 ml 120 ml Output Total 1600 ml Balance 1000 ml -1600 ml 120 ml Physical Exam General: Alert, Oriented X3, No acute distress Heart: Regular rate, Normal S2 Lungs: Other Abdomen: Normal bowel sounds, No tenderness Extremities: No clubbing Skin: No rashes, Other (NEUROFIBROMA LESIONS) Labs Labs: Laboratory Tests Test 03/10/21 12:51 03/11/21 06:40 Urine Collection Type Unknown Urine Color Judie Urine Clarity Clear Urine pH 5.5 (<5.0-8.0) Urine Specific [place] 1.020 (1.000-1.030) Urine Protein Negative mg/dL (NEG-TRACE) Urine Glucose (UA) Negative mg/dL (NEG) Urine Ketones (Stick) Negative mg/dL (NEG) Urine Blood Negative (NEG) Urine Nitrite Negative (NEG) Urine Bilirubin Small (NEG) Urine Urobilinogen Dipstick 0.2 mg/dL (0.2 mg/dL) Urine Leukocyte Esterase Negative (NEG) Urine RBC 0 /HPF (0-2) Urine WBC 1-4 /HPF (0-4) Urine Squamous Epithelial Cells Many /LPF Urine Renal Epithelial Cells Occ /LPF Urine Bacteria 0 /HPF (0-FEW) Urine Hyaline Casts Few /HPF White Blood Count 2.7 x10^3/uL (4.0-11.0) Red Blood Count 3.32 x10^6/uL (3.50-5.40) Hemoglobin 9.6 g/dL (12.0-15.5) Hematocrit 28.6 % (36.0-47.0) Mean Corpuscular Volume 86 fL (79-100) Mean Corpuscular Hemoglobin 29 pg (25-35) Mean Corpuscular Hemoglobin Concent 34 g/dL (31-37) Red Cell Distribution Width 22.3 % (11.5-14.5) Platelet Count 346 x10^3/uL (140-400) Neutrophils (%) (Auto) 61 % (31-73) Lymphocytes (%) (Auto) 9 % (24-48) Monocytes (%) (Auto) 29 % (0-9) Eosinophils (%) (Auto) 1 % (0-3) Basophils (%) (Auto) 1 % (0-3) Neutrophils # (Auto) 1.6 x10^3/uL (1.8-7.7) Lymphocytes # (Auto) 0.2 x10^3/uL (1.0-4.8) Monocytes # (Auto) 0.8 x10^3/uL (0.0-1.1) Eosinophils # (Auto) 0.0 x10^3/uL (0.0-0.7) Basophils # (Auto) 0.0 x10^3/uL (0.0-0.2) Sodium Level 134 mmol/L (136-145) Potassium Level 4.9 mmol/L (3.5-5.1) Chloride Level 102 mmol/L (98-107) Carbon Dioxide Level 21 mmol/L (21-32) Anion Gap 11 (6-14) Blood Urea Nitrogen 39 mg/dL (7-20) Creatinine 2.2 mg/dL (0.6-1.0) Estimated GFR (Cockcroft-Gault) 29.2 BUN/Creatinine Ratio 18 (6-20) Glucose Level 82 mg/dL (70-99) Calcium Level 7.5 mg/dL (8.5-10.1) Total Bilirubin 0.4 mg/dL (0.2-1.0) Aspartate Amino Transf (AST/SGOT) 58 U/L (15-37) Alanine Aminotransferase (ALT/SGPT) 28 U/L (14-59) Alkaline Phosphatase 567 U/L (46-116) Total Protein 5.4 g/dL (6.4-8.2) Albumin 1.7 g/dL (3.4-5.0) Albumin/Globulin Ratio 0.5 (1.0-1.7) Assessment and Plan Assessmemt and Plan Problems Medical Problems: (1) Acute renal failure Status: Acute (2) Breast cancer Status: Acute (3) Dehydration Status: Acute (4) Pleural effusion, left Status: Acute Comment Review of Relevant I have reviewed the following items bryan (where applicable) has been applied. Medications: Current Medications Medications (Trade) Dose Ordered Sig/Susie Route PRN Reason Start Time Stop Time Status Last Admin Dose Admin Ondansetron HCl (Zofran) 4 mg PRN Q6HRS PRN IVP NAUSEA/VOMITING 03/11/21 09:45 03/11/21 10:08 Justifications for Admission Other Justification MIYA PLEITEZ MD Mar 11, 2021 11:50
[2021-03-11] MEDS: DEXAMETHASONE SOD PHOS 4 MG/ML VIAL IVP SCH (12:57)
--- NOTE | 2021-03-11 14:04 | PDOC ---
PROGRESS NOTES Date of Service DATE: 03/11/21 TIME: 14:03 Subjective Subjective IN FOLLOW UP OF ACUTE RENAL FAILURE Objective Objective Vital Signs Date Time Temp Pulse Resp B/P (MAP) Pulse Ox O2 Delivery O2 Flow Rate FiO2 03/11/21 11:30 16 03/11/21 09:33 Room Air 03/11/21 07:00 98.5 114 100/73 (82) 91 98.5 Intake and Output 03/11/21 07:00 Intake Total 1120 ml Output Total 1600 ml Balance -480 ml Intake Oral 120 ml IV Total 1000 ml Output Drainage Total 1600 ml # Voids 1 Physical Exam COMMENT PUI FOR COVID 19 SO NO BEDSIDE EXAM Diagnosis RENAL FAILURE: Acute, Other (DEHYDRATION) Assessment Assessment Problems Medical Problems: (1) Acute renal failure Status: Acute (2) Breast cancer Status: Acute (3) Dehydration Status: Acute (4) Pleural effusion, left Status: Acute Plan Plan of Care RENAL FUNCTION IS IMPROVING. CONT FLUID BALANCE Comment Review of Relevant I have reviewed the following items bryan (where applicable) has been applied. Labs Laboratory Tests Test 03/09/21 20:38 03/09/21 22:37 03/10/21 09:40 03/10/21 12:51 White Blood Count 2.8 x10^3/uL (4.0-11.0) Red Blood Count 3.11 x10^6/uL (3.50-5.40) Hemoglobin 8.9 g/dL (12.0-15.5) Hematocrit 27.1 % (36.0-47.0) Mean Corpuscular Volume 87 fL (79-100) Mean Corpuscular Hemoglobin 29 pg (25-35) Mean Corpuscular Hemoglobin Concent 33 g/dL (31-37) Red Cell Distribution Width 22.5 % (11.5-14.5) Platelet Count 306 x10^3/uL (140-400) Neutrophils (%) (Auto) 56 % (31-73) Lymphocytes (%) (Auto) 11 % (24-48) Monocytes (%) (Auto) 30 % (0-9) Eosinophils (%) (Auto) 1 % (0-3) Basophils (%) (Auto) 2 % (0-3) Neutrophils # (Auto) 1.5 x10^3/uL (1.8-7.7) Lymphocytes # (Auto) 0.3 x10^3/uL (1.0-4.8) Monocytes # (Auto) 0.8 x10^3/uL (0.0-1.1) Eosinophils # (Auto) 0.0 x10^3/uL (0.0-0.7) Basophils # (Auto) 0.0 x10^3/uL (0.0-0.2) Segmented Neutrophils % 43 % (35-66) Band Neutrophils % 12 % (0-9) Lymphocytes % 17 % (24-48) Monocytes % 27 % (0-10) Basophils % 1 % (0-3) Platelet Estimate Adequate (ADEQUATE) Poikilocytosis Slight Anisocytosis Mod Tear Drop Cells Occ Ovalocytes Few Sodium Level 132 mmol/L (136-145) 131 mmol/L (136-145) Potassium Level 4.8 mmol/L (3.5-5.1) 4.6 mmol/L (3.5-5.1) Chloride Level 98 mmol/L (98-107) 100 mmol/L (98-107) Carbon Dioxide Level 22 mmol/L (21-32) 21 mmol/L (21-32) Anion Gap 12 (6-14) 10 (6-14) Blood Urea Nitrogen 50 mg/dL (7-20) 44 mg/dL (7-20) Creatinine 3.8 mg/dL (0.6-1.0) 3.2 mg/dL (0.6-1.0) Estimated GFR (Cockcroft-Gault) 15.5 19.0 BUN/Creatinine Ratio 13 (6-20) Glucose Level 107 mg/dL (70-99) 91 mg/dL (70-99) Calcium Level 7.7 mg/dL (8.5-10.1) 6.9 mg/dL (8.5-10.1) Magnesium Level 2.5 mg/dL (1.8-2.4) Total Bilirubin 0.5 mg/dL (0.2-1.0) Aspartate Amino Transf (AST/SGOT) 42 U/L (15-37) Alanine Aminotransferase (ALT/SGPT) 21 U/L (14-59) Alkaline Phosphatase 458 U/L (46-116) Total Protein 5.9 g/dL (6.4-8.2) Albumin 2.0 g/dL (3.4-5.0) Albumin/Globulin Ratio 0.5 (1.0-1.7) Lipase 335 U/L (73-393) SARS-CoV-2 RNA (MONET) Positive (Negative) SARS-CoV-2 Antigen (Rapid) Negative (NEGATIVE) Prothrombin Time 14.4 SEC (11.7-14.0) Prothromb Time International Ratio 1.1 (0.8-1.1) Urine Collection Type Unknown Urine Color Judie Urine Clarity Clear Urine pH 5.5 (<5.0-8.0) Urine Specific [place] 1.020 (1.000-1.030) Urine Protein Negative mg/dL (NEG-TRACE) Urine Glucose (UA) Negative mg/dL (NEG) Urine Ketones (Stick) Negative mg/dL (NEG) Urine Blood Negative (NEG) Urine Nitrite Negative (NEG) Urine Bilirubin Small (NEG) Urine Urobilinogen Dipstick 0.2 mg/dL (0.2 mg/dL) Urine Leukocyte Esterase Negative (NEG) Urine RBC 0 /HPF (0-2) Urine WBC 1-4 /HPF (0-4) Urine Squamous Epithelial Cells Many /LPF Urine Renal Epithelial Cells Occ /LPF Urine Bacteria 0 /HPF (0-FEW) Urine Hyaline Casts Few /HPF Test 03/11/21 06:40 White Blood Count 2.7 x10^3/uL (4.0-11.0) Red Blood Count 3.32 x10^6/uL (3.50-5.40) Hemoglobin 9.6 g/dL (12.0-15.5) Hematocrit 28.6 % (36.0-47.0) Mean Corpuscular Volume 86 fL (79-100) Mean Corpuscular Hemoglobin 29 pg (25-35) Mean Corpuscular Hemoglobin Concent 34 g/dL (31-37) Red Cell Distribution Width 22.3 % (11.5-14.5) Platelet Count 346 x10^3/uL (140-400) Neutrophils (%) (Auto) 61 % (31-73) Lymphocytes (%) (Auto) 9 % (24-48) Monocytes (%) (Auto) 29 % (0-9) Eosinophils (%) (Auto) 1 % (0-3) Basophils (%) (Auto) 1 % (0-3) Neutrophils # (Auto) 1.6 x10^3/uL (1.8-7.7) Lymphocytes # (Auto) 0.2 x10^3/uL (1.0-4.8) Monocytes # (Auto) 0.8 x10^3/uL (0.0-1.1) Eosinophils # (Auto) 0.0 x10^3/uL (0.0-0.7) Basophils # (Auto) 0.0 x10^3/uL (0.0-0.2) Sodium Level 134 mmol/L (136-145) Potassium Level 4.9 mmol/L (3.5-5.1) Chloride Level 102 mmol/L (98-107) Carbon Dioxide Level 21 mmol/L (21-32) Anion Gap 11 (6-14) Blood Urea Nitrogen 39 mg/dL (7-20) Creatinine 2.2 mg/dL (0.6-1.0) Estimated GFR (Cockcroft-Gault) 29.2 BUN/Creatinine Ratio 18 (6-20) Glucose Level 82 mg/dL (70-99) Calcium Level 7.5 mg/dL (8.5-10.1) Total Bilirubin 0.4 mg/dL (0.2-1.0) Aspartate Amino Transf (AST/SGOT) 58 U/L (15-37) Alanine Aminotransferase (ALT/SGPT) 28 U/L (14-59) Alkaline Phosphatase 567 U/L (46-116) Total Protein 5.4 g/dL (6.4-8.2) Albumin 1.7 g/dL (3.4-5.0) Albumin/Globulin Ratio 0.5 (1.0-1.7) Laboratory Tests Test 03/11/21 06:40 White Blood Count 2.7 x10^3/uL (4.0-11.0) Red Blood Count 3.32 x10^6/uL (3.50-5.40) Hemoglobin 9.6 g/dL (12.0-15.5) Hematocrit 28.6 % (36.0-47.0) Mean Corpuscular Volume 86 fL (79-100) Mean Corpuscular Hemoglobin 29 pg (25-35) Mean Corpuscular Hemoglobin Concent 34 g/dL (31-37) Red Cell Distribution Width 22.3 % (11.5-14.5) Platelet Count 346 x10^3/uL (140-400) Neutrophils (%) (Auto) 61 % (31-73) Lymphocytes (%) (Auto) 9 % (24-48) Monocytes (%) (Auto) 29 % (0-9) Eosinophils (%) (Auto) 1 % (0-3) Basophils (%) (Auto) 1 % (0-3) Neutrophils # (Auto) 1.6 x10^3/uL (1.8-7.7) Lymphocytes # (Auto) 0.2 x10^3/uL (1.0-4.8) Monocytes # (Auto) 0.8 x10^3/uL (0.0-1.1) Eosinophils # (Auto) 0.0 x10^3/uL (0.0-0.7) Basophils # (Auto) 0.0 x10^3/uL (0.0-0.2) Sodium Level 134 mmol/L (136-145) Potassium Level 4.9 mmol/L (3.5-5.1) Chloride Level 102 mmol/L (98-107) Carbon Dioxide Level 21 mmol/L (21-32) Anion Gap 11 (6-14) Blood Urea Nitrogen 39 mg/dL (7-20) Creatinine 2.2 mg/dL (0.6-1.0) Estimated GFR (Cockcroft-Gault) 29.2 BUN/Creatinine Ratio 18 (6-20) Glucose Level 82 mg/dL (70-99) Calcium Level 7.5 mg/dL (8.5-10.1) Total Bilirubin 0.4 mg/dL (0.2-1.0) Aspartate Amino Transf (AST/SGOT) 58 U/L (15-37) Alanine Aminotransferase (ALT/SGPT) 28 U/L (14-59) Alkaline Phosphatase 567 U/L (46-116) Total Protein 5.4 g/dL (6.4-8.2) Albumin 1.7 g/dL (3.4-5.0) Albumin/Globulin Ratio 0.5 (1.0-1.7) Medications Current Medications Multi-Ingredient Mouthwash/Gargle (Gi Cocktail) 20 ml 1X ONCE SWSW Last administered on 03/09/21at 20:30; Start 03/09/21 at 20:30; Stop 03/09/21 at 2 0:31; Status DC Famotidine (Pepcid Vial) 20 mg 1X ONCE IVP Last administered on 03/09/21at 20:30; Start 03/09/21 at 20:30; Stop 03/09/21 at 20:31; Status DC Sodium Chloride 500 ml @ 500 mls/hr 1X ONCE IV Last administered on 03/09/21at 21:30; Start 03/09/21 at 21:30; Stop 03/09/21 at 22:29; Status DC Ondansetron HCl (Zofran) 4 mg PRN Q8HRS PRN IVP NAUSEA/VOMITING 1ST CHOICE; Start 03/09/21 at 22:00; Stop 03/10/21 at 21:59; Status DC Sodium Chloride 1,000 ml @ 100 mls/hr Q10H IV Last administered on 03/10/21at 12:36; Start 03/09/21 at 22:00; Stop 03/10/21 at 21:59; Status DC Oxycodone HCl (Roxicodone) 5 mg PRN Q3HRS PRN PO PAIN Last administered on 03/11/21at 09:33; Start 03/10/21 at 07:00 Midazolam HCl (Versed) 2 mg STK-MED ONCE .ROUTE ; Start 03/10/21 at 08:57; Stop 03/10/21 at 08:57; Status DC Fentanyl Citrate (Fentanyl 2ml Vial) 100 mcg STK-MED ONCE .ROUTE ; Start 03/10 at 08:57; Stop 03/10/21 at 08:57; Status DC Lidocaine HCl (Buffered Lidocaine 1%) 3 ml STK-MED ONCE .ROUTE ; Start 03/10/21 at 08:57; Stop 03/10/21 at 08:57; Status DC Cefazolin Sodium (Ancef) 1 gm STK-MED ONCE IVP ; Start 03/10/21 at 14:01; Stop 03/10/21 at 14:01; Status DC Lidocaine/ Epinephrine (LIDOCAINE 2%-EPI 1:100,000 multi-dose) 20 ml STK-MED ONCE .ROUTE ; Start 03/10/21 at 14:03; Stop 03/10/21 at 14:03; Status DC Midazolam HCl (Versed) 2 mg 1X ONCE IV ; Start 03/10/21 at 14:15; Stop 03/10/21 at 14:34; Status DC Fentanyl Citrate (Fentanyl 2ml Vial) 100 mcg 1X ONCE IV ; Start 03/10/21 at 14:15; Stop 03/10/21 at 14:34; Status DC Lidocaine/ Epinephrine (LIDOCAINE 2%-EPI 1:100,000 multi-dose) 20 ml 1X ONCE IJ ; Start 03/10/21 at 14:15; Stop 03/10/21 at 14:34; Status DC Cefazolin Sodium (Ancef) 1 gm 1X ONCE IVP ; Start 03/10/21 at 14:15; Stop 03/10/21 at 14:34; Status DC Ondansetron HCl (Zofran) 4 mg PRN Q6HRS PRN IVP NAUSEA/VOMITING Last administered on 03/11/21at 10:08; Start 03/11/21 at 09:45 Dexamethasone Sodium Phosphate (Decadron) 6 mg DAILY IVP Last administered on 03/11/21at 12:57; Start 03/11/21 at 10:15 Active Scripts Active Percocet 10-325 Mg Tablet (Oxycodone/Acetaminophen) 1 Each Tablet 1 Tab PO PRN Q6HRS PRN 30 Days Oxycontin (Oxycodone HCl) 10 Mg Tab.er.12h 1 Tab PO BID MDD 2 Tablet(s) 30 Days Reported Amlodipine Besylate 5 Mg Tablet Unknown Dose PO DAILY Meloxicam 7.5 Mg Tablet Unknown Dose PO DAILY 30 Days Ferrous Sulfate 325 Mg Tablet 1 Tab PO DAILY Vitals/I & O Vital Sign - Last 24 Hours 03/10/21 03/10/21 03/11/21 03/11/21 15:00 19:51 07:00 08:00 Temp 97.7 97.9 98.5 97.7 97.9 98.5 Pulse 57 107 114 Resp 20 16 16 B/P (MAP) 97/66 (76) 90/67 (75) 100/73 (82) Pulse Ox 98 94 91 O2 Delivery Room Air Room Air Room Air Room Air 03/11/21 03/11/21 09:33 11:30 Resp 16 16 O2 Delivery Room Air Intake and Output 03/10/21 03/10/21 03/11/21 15:00 23:00 07:00 Intake Total 1000 ml 120 ml Output Total 1600 ml Balance 1000 ml -1600 ml 120 ml Justifications for Admission Other Justification ISAAK HERNANDEZ MD Mar 11, 2021 14:04
[2021-03-11 15:00] VITALS: BP 119/92
[2021-03-11] MEDS: HYDROmorphone 2 MG/ML INJ. IVP PRN (17:37)
[2021-03-11 19:35] VITALS: BP 111/87
[2021-03-11] MEDS: oxyCODONE ER 10 MG TAB.ER.12H PO SCH (21:49)
[2021-03-11] MEDS: oxyCODONE/APAP 10/325 1 TAB TABLET PO PRN (21:50)
[2021-03-11 23:25] VITALS: BP 106/80
--- NOTE | 2021-03-12 06:46 | PDOC ---
PULMONARY PROGRESS NOTES DATE: 03/12/21 TIME: 06:45 Subjective is tired feels better Vitals Vital Signs Date Time Temp Pulse Resp B/P (MAP) Pulse Ox O2 Delivery O2 Flow Rate FiO2 03/12/21 03:00 Room Air 03/11/21 23:25 98.1 96 18 91 98.1 General: Alert HEENT: Other (nc at) Lungs: Other (no accessory muscle use) Cardiovascular: S1, S2 Extremities: No Edema Skin: No Rashes Labs Laboratory Tests Test 03/10/21 09:40 03/10/21 12:51 03/11/21 06:40 Prothrombin Time 14.4 SEC (11.7-14.0) Prothromb Time International Ratio 1.1 (0.8-1.1) Sodium Level 131 mmol/L (136-145) 134 mmol/L (136-145) Potassium Level 4.6 mmol/L (3.5-5.1) 4.9 mmol/L (3.5-5.1) Chloride Level 100 mmol/L (98-107) 102 mmol/L (98-107) Carbon Dioxide Level 21 mmol/L (21-32) 21 mmol/L (21-32) Anion Gap 10 (6-14) 11 (6-14) Blood Urea Nitrogen 44 mg/dL (7-20) 39 mg/dL (7-20) Creatinine 3.2 mg/dL (0.6-1.0) 2.2 mg/dL (0.6-1.0) Estimated GFR (Cockcroft-Gault) 19.0 29.2 Glucose Level 91 mg/dL (70-99) 82 mg/dL (70-99) Calcium Level 6.9 mg/dL (8.5-10.1) 7.5 mg/dL (8.5-10.1) Urine Collection Type Unknown Urine Color Judie Urine Clarity Clear Urine pH 5.5 (<5.0-8.0) Urine Specific [place] 1.020 (1.000-1.030) Urine Protein Negative mg/dL (NEG-TRACE) Urine Glucose (UA) Negative mg/dL (NEG) Urine Ketones (Stick) Negative mg/dL (NEG) Urine Blood Negative (NEG) Urine Nitrite Negative (NEG) Urine Bilirubin Small (NEG) Urine Urobilinogen Dipstick 0.2 mg/dL (0.2 mg/dL) Urine Leukocyte Esterase Negative (NEG) Urine RBC 0 /HPF (0-2) Urine WBC 1-4 /HPF (0-4) Urine Squamous Epithelial Cells Many /LPF Urine Renal Epithelial Cells Occ /LPF Urine Bacteria 0 /HPF (0-FEW) Urine Hyaline Casts Few /HPF White Blood Count 2.7 x10^3/uL (4.0-11.0) Red Blood Count 3.32 x10^6/uL (3.50-5.40) Hemoglobin 9.6 g/dL (12.0-15.5) Hematocrit 28.6 % (36.0-47.0) Mean Corpuscular Volume 86 fL (79-100) Mean Corpuscular Hemoglobin 29 pg (25-35) Mean Corpuscular Hemoglobin Concent 34 g/dL (31-37) Red Cell Distribution Width 22.3 % (11.5-14.5) Platelet Count 346 x10^3/uL (140-400) Neutrophils (%) (Auto) 61 % (31-73) Lymphocytes (%) (Auto) 9 % (24-48) Monocytes (%) (Auto) 29 % (0-9) Eosinophils (%) (Auto) 1 % (0-3) Basophils (%) (Auto) 1 % (0-3) Neutrophils # (Auto) 1.6 x10^3/uL (1.8-7.7) Lymphocytes # (Auto) 0.2 x10^3/uL (1.0-4.8) Monocytes # (Auto) 0.8 x10^3/uL (0.0-1.1) Eosinophils # (Auto) 0.0 x10^3/uL (0.0-0.7) Basophils # (Auto) 0.0 x10^3/uL (0.0-0.2) BUN/Creatinine Ratio 18 (6-20) Total Bilirubin 0.4 mg/dL (0.2-1.0) Aspartate Amino Transf (AST/SGOT) 58 U/L (15-37) Alanine Aminotransferase (ALT/SGPT) 28 U/L (14-59) Alkaline Phosphatase 567 U/L (46-116) Total Protein 5.4 g/dL (6.4-8.2) Albumin 1.7 g/dL (3.4-5.0) Albumin/Globulin Ratio 0.5 (1.0-1.7) Medications Active Scripts Medications Dose Route/Sig Max Daily Dose Days Date Category Percocet 10-325 Mg Tablet (Oxycodone/Acetaminophen) 1 Each Tablet 1 Tab PO PRN Q6HRS PRN 30 01/05/21 Rx Oxycontin (Oxycodone HCl) 10 Mg Tab.er.12h 1 Tab PO BID MDD 2 Tablet(s) 01/05/21 Rx Amlodipine Besylate 5 Mg Tablet Unknown Dose PO DAILY 12/29/20 Reported Meloxicam 7.5 Mg Tablet Unknown Dose PO DAILY 12/29/20 Reported Ferrous Sulfate 325 Mg Tablet 1 Tab PO DAILY 10/16/13 Reported Impression . IMPRESSION: 1. Large left sided pleural effusion in a patient who has a stage IV breast cancer. She had previously right-sided paramalignant pleural effusion, which required chest tube drainage. The left effusion is likely malignant. Dr. Harris and initially ordered a left chest tube placement. I recommended that we should proceed with PleurX catheter. The patient is agreeable to that. 2. The patient with stage IV breast cancer, currently on palliative chemo. 3. Neurofibromatosis. 4. Leukopenia, likely related to chemo. Plan . RECOMMENDATIONS: 1. 02 titration to keep sat 90% 6 min walk at dc 2. s/p thoracentesis 03/10 1600 cc fluid evacutated Send pleural fluid for cytology and other analysis. 3. Follow Oncology recommendation. 4. chest x-rays in am 5. covid + pleurex on hold for now 6. We will follow along with you. QUIQUE NARVAEZ MD Mar 12, 2021 06:46
[2021-03-12 07:00] VITALS: BP 118/81
[2021-03-12] MEDS: DEXAMETHASONE SOD PHOS 4 MG/ML VIAL IVP SCH (08:30)
[2021-03-12] MEDS: oxyCODONE ER 10 MG TAB.ER.12H PO SCH ×2 (08:30→22:21)
[2021-03-12] MEDS: ONDANSETRON PF 4 MG/2 ML VIAL. IVP PRN (08:38)
[2021-03-12 11:00] VITALS: BP 122/86
--- NOTE | 2021-03-12 14:16 | PDOC ---
[employer] PROGRESS NOTE Date of Service DOS: DATE: 03/12/21 TIME: 14:15 Chief Complaint Chief Complaint COVID 19, plueral effusion, LEft, malignant, recurrent from 2 months ago. Acute renal fialure, ATN and vasomotor, hydrate, consult renal check UA, renal US Metastatic breast cancer Normocytic anemia Neutropenia secondary to antineoplastic therapy Malignant pleural effusion Failure to thrive, severe malnutrition weakness and debility neurofibomatosis 2 History of Present Illness History of Present Illness she is still very weak and feels unable to go home,l pain better, her home pain meds restarted, she is interested in hospice care, she wants to talk to her Oncologist, Dr. Rascon at supportive care PT when able DC when able to manage at home I discussed with sister yesterday Vitals/I&O Vitals/I&O: Vital Signs Date Time Temp Pulse Resp B/P (MAP) Pulse Ox O2 Delivery O2 Flow Rate FiO2 03/12/21 13:00 Room Air 03/12/21 11:00 98.3 103 18 122/86 (98) 92 98.3 I & O 03/11/21 03/11/21 03/12/21 15:00 23:00 07:00 Intake Total 240 ml Balance 240 ml Physical Exam General: Alert, Oriented X3, No acute distress Heart: Regular rate, Normal S2 Lungs: Other (no accessory muscle use) Abdomen: Normal bowel sounds, No tenderness Extremities: No clubbing Skin: No rashes, Other (NEUROFIBROMA LESIONS) Assessment and Plan Assessmemt and Plan Problems Medical Problems: (1) Acute renal failure Status: Acute (2) Breast cancer Status: Acute (3) Dehydration Status: Acute (4) Pleural effusion, left Status: Acute Comment Review of Relevant I have reviewed the following items bryan (where applicable) has been applied. Medications: Current Medications Medications (Trade) Dose Ordered Sig/Susie Route PRN Reason Start Time Stop Time Status Last Admin Dose Admin Hydromorphone HCl (Dilaudid) 1 mg PRN Q6HRS PRN IVP PAIN 03/11/21 17:15 03/11/21 17:37 Oxycodone HCl (OxyCONTIN) 10 mg BID PO 03/11/21 21:00 03/12/21 08:30 Oxycodone/ Acetaminophen (Percocet 10/325) 1 tab PRN Q6HRS PRN PO PAIN 03/11/21 17:15 03/11/21 21:50 Justifications for Admission Other Justification MIYA PLEITEZ MD Mar 12, 2021 14:16
[2021-03-12 15:00] VITALS: BP 123/96
[2021-03-12 15:15] LABS: BASO % 0 % (0-3); EOS % 0 % (0-3); HEMOGLOBIN 10.2 g/dL (12.0-15.5); LYMPH # 0.4 x10^3/uL (1.0-4.8); LYMPH % 6 % (24-48); MEAN CORPUSCULAR HEMOGLOBIN 29 pg (25-35); MEAN CORPUSCULAR HGB CONC 33 g/dL (31-37); MEAN CORPUSCULAR VOLUME 87 fL (79-100); MONO # 0.6 x10^3/uL (0.0-1.1); MONO % 10 % (0-9); NEUT # 4.8 x10^3/uL (1.8-7.7); NEUT % 83 % (31-73); PLATELET COUNT 436 x10^3/uL (140-400); RED BLOOD COUNT 3.56 x10^6/uL (3.50-5.40); RED CELL DISTRIBUTION WIDTH 22.5 % (11.5-14.5); WHITE BLOOD COUNT 5.7 x10^3/uL (4.0-11.0)
[2021-03-12 15:27] LABS: CALCIUM 8.3 mg/dL (8.5-10.1); CREATININE 1.6 mg/dL (0.6-1.0); GFR 42.2; POTASSIUM 5.5 mmol/L (3.5-5.1)
[2021-03-12 19:00] VITALS: BP 147/103
[2021-03-12] MEDS ORDERED: CALCIUM CARBONATE 500 MG TAB.CHEW PO PRN (19:30)
[2021-03-12] MEDS: oxyCODONE/APAP 10/325 1 TAB TABLET PO PRN (19:56)
[2021-03-12] MEDS: PANTOPRAZOLE 40 MG TABLET.DR. PO SCH (22:21)
[2021-03-12 23:00] VITALS: BP 128/93
[2021-03-13 03:00] VITALS: BP 111/83
[2021-03-13 07:00] VITALS: BP 112/82
--- NOTE | 2021-03-13 08:19 | RAD ---
EXAM: AP View of the chest DATE: 03/13/2021 7:31 AM INDICATION: Reason: fu effusion / Spl. Instructions: / History: COMPARISON: 03/09/2021 01/05/2021 FINDINGS/ IMPRESSION: Left port tip projects over the distal SVC/right atrium. Abdominal drain is again seen, in stable pos ition. The heart is not enlarged. Bilateral lung base airspace opacities likely consolidative process such as pneumonia. Small pleural effusions. No pneumothorax. Electronically signed by: Cas Rehman MD (03/13/2021 8:16 AM) [id number]
[2021-03-13] MEDS: oxyCODONE ER 10 MG TAB.ER.12H PO SCH ×2 (08:39→21:03)
[2021-03-13] MEDS: DEXAMETHASONE SOD PHOS 4 MG/ML VIAL IVP SCH (08:39)
[2021-03-13] MEDS: PANTOPRAZOLE 40 MG TABLET.DR. PO SCH (08:39)
--- NOTE | 2021-03-13 09:56 | PDOC ---
PULMONARY PROGRESS NOTES DATE: 03/13/21 TIME: 09:53 Subjective is tired feels better. would like to go home. Vitals Vital Signs Date Time Temp Pulse Resp B/P (MAP) Pulse Ox O2 Delivery O2 Flow Rate FiO2 03/13/21 07:00 98.3 104 16 112/82 (92) 95 Room Air 98.3 General: Alert HEENT: Other (nc at) Lungs: Other (no accessory muscle use) Cardiovascular: S1, S2 Extremities: No Edema Skin: No Rashes Labs Laboratory Tests Test 03/12/21 15:00 White Blood Count 5.7 x10^3/uL (4.0-11.0) Red Blood Count 3.56 x10^6/uL (3.50-5.40) Hemoglobin 10.2 g/dL (12.0-15.5) Hematocrit 31.0 % (36.0-47.0) Mean Corpuscular Volume 87 fL (79-100) Mean Corpuscular Hemoglobin 29 pg (25-35) Mean Corpuscular Hemoglobin Concent 33 g/dL (31-37) Red Cell Distribution Width 22.5 % (11.5-14.5) Platelet Count 436 x10^3/uL (140-400) Neutrophils (%) (Auto) 83 % (31-73) Lymphocytes (%) (Auto) 6 % (24-48) Monocytes (%) (Auto) 10 % (0-9) Eosinophils (%) (Auto) 0 % (0-3) Basophils (%) (Auto) 0 % (0-3) Neutrophils # (Auto) 4.8 x10^3/uL (1.8-7.7) Lymphocytes # (Auto) 0.4 x10^3/uL (1.0-4.8) Monocytes # (Auto) 0.6 x10^3/uL (0.0-1.1) Eosinophils # (Auto) 0.0 x10^3/uL (0.0-0.7) Basophils # (Auto) 0.0 x10^3/uL (0.0-0.2) Sodium Level 133 mmol/L (136-145) Potassium Level 5.5 mmol/L (3.5-5.1) Chloride Level 101 mmol/L (98-107) Carbon Dioxide Level 21 mmol/L (21-32) Anion Gap 11 (6-14) Blood Urea Nitrogen 35 mg/dL (7-20) Creatinine 1.6 mg/dL (0.6-1.0) Estimated GFR (Cockcroft-Gault) 42.2 Glucose Level 121 mg/dL (70-99) Calcium Level 8.3 mg/dL (8.5-10.1) Laboratory Tests Test 03/12/21 15:00 White Blood Count 5.7 x10^3/uL (4.0-11.0) Red Blood Count 3.56 x10^6/uL (3.50-5.40) Hemoglobin 10.2 g/dL (12.0-15.5) Hematocrit 31.0 % (36.0-47.0) Mean Corpuscular Volume 87 fL (79-100) Mean Corpuscular Hemoglobin 29 pg (25-35) Mean Corpuscular Hemoglobin Concent 33 g/dL (31-37) Red Cell Distribution Width 22.5 % (11.5-14.5) Platelet Count 436 x10^3/uL (140-400) Neutrophils (%) (Auto) 83 % (31-73) Lymphocytes (%) (Auto) 6 % (24-48) Monocytes (%) (Auto) 10 % (0-9) Eosinophils (%) (Auto) 0 % (0-3) Basophils (%) (Auto) 0 % (0-3) Neutrophils # (Auto) 4.8 x10^3/uL (1.8-7.7) Lymphocytes # (Auto) 0.4 x10^3/uL (1.0-4.8) Monocytes # (Auto) 0.6 x10^3/uL (0.0-1.1) Eosinophils # (Auto) 0.0 x10^3/uL (0.0-0.7) Basophils # (Auto) 0.0 x10^3/uL (0.0-0.2) Sodium Level 133 mmol/L (136-145) Potassium Level 5.5 mmol/L (3.5-5.1) Chloride Level 101 mmol/L (98-107) Carbon Dioxide Level 21 mmol/L (21-32) Anion Gap 11 (6-14) Blood Urea Nitrogen 35 mg/dL (7-20) Creatinine 1.6 mg/dL (0.6-1.0) Estimated GFR (Cockcroft-Gault) 42.2 Glucose Level 121 mg/dL (70-99) Calcium Level 8.3 mg/dL (8.5-10.1) Medications Active Scripts Medications Dose Route/Sig Max Daily Dose Days Date Category Percocet 10-325 Mg Tablet (Oxycodone/Acetaminophen) 1 Each Tablet 1 Tab PO PRN Q6HRS PRN 01/05/21 Rx Oxycontin (Oxycodone HCl) 10 Mg Tab.er.12h 1 Tab PO BID MDD 2 Tablet(s) 01/05/21 Rx Amlodipine Besylate 5 Mg Tablet Unknown Dose PO DAILY 12/29/20 Reported Meloxicam 7.5 Mg Tablet Unknown Dose PO DAILY 12/29/20 Reported Ferrous Sulfate 325 Mg Tablet 1 Tab PO DAILY 10/16/13 Reported Impression . IMPRESSION: 1. Large left sided pleural effusion in a patient who has a stage IV breast cancer. She had previously right-sided paramalignant pleural effusion, which required chest tube drainage. The left effusion is likely malignant. Dr. Harris and initially ordered a left chest tube placement. I recommended that we should proceed with PleurX catheter. The patient is agreeable to that. Awaiting fluid pathology report. 2. The patient with stage IV breast cancer, currently on palliative chemo. 3. Neurofibromatosis. 4. Leukopenia, likely related to chemo. Plan . RECOMMENDATIONS: 1. 02 titration to keep sat 90% 6 min walk at dc 2. s/p thoracentesis 03/10 1600 cc fluid evacutated Send pleural fluid for cytology and other analysis. Awaiting results. 3. Follow Oncology recommendation. 4. chest x-rays in am 5. covid + pleurex on hold for now 6. We will follow along with you. BLANK RUDD MD Mar 13, 2021 09:56
[2021-03-13 10:05] LABS: ALBUMIN 1.9 g/dL (3.4-5.0); ALBUMIN/GLOBULIN RATIO 0.5 (1.0-1.7); CALCIUM 7.4 mg/dL (8.5-10.1); CREATININE 1.5 mg/dL (0.6-1.0); TOTAL PROTEIN 5.4 g/dL (6.4-8.2)
[2021-03-13 10:06] LABS: GFR 45.4; TOTAL BILIRUBIN 0.3 mg/dL (0.2-1.0)
[2021-03-13 10:26] LABS: POTASSIUM 4.9 mmol/L (3.5-5.1)
[2021-03-13] MEDS ORDERED: ONDANSETRON ODT 4 MG TAB.RAPDIS. PO PRN (11:00)
[2021-03-13] MEDS ORDERED: ACETAMINOPHEN 325 MG TABLET. PO PRN (11:00)
[2021-03-13] MEDS ORDERED: METOCLOPRAMIDE HCL 10 MG/2 ML VIAL. IVP PRN (11:00)
--- NOTE | 2021-03-13 11:06 | PDOC ---
[employer] PROGRESS NOTE Date of Service DOS: DATE: 03/13/21 TIME: 11:04 Chief Complaint Chief Complaint COVID 19, pleural effusion, LEft, malignant, recurrent from 2 months ago. Acute renal failure, ATN and vasomotor, hydrate, consult renal check UA, renal US Metastatic breast cancer - liver and bony mets Normocytic anemia Neutropenia secondary to antineoplastic therapy Malignant pleural effusion Failure to thrive, severe malnutrition weakness and debility neurofibomatosis 2 Intractable nausea and vomiting - increase zofran, schedule with meals, add dronabinol/marinol History of Present Illness History of Present Illness 03/12: she is still very weak and feels unable to go home,l pain better, her home pain meds restarted, she is interested in hospice care, she wants to talk to her Oncologist, Dr. Rascon at . Discussed with sister yesterday 03/13: Chest radiograph with bibasilar consolidative changes, pleural effusion improved. She has significant nausea and vomiting today, feeling reflux is severe as well. Low appetite, very weak. Na 132. Vitals/I&O Vitals/I&O: Vital Signs Date Time Temp Pulse Resp B/P (MAP) Pulse Ox O2 Delivery O2 Flow Rate FiO2 03/13/21 08:00 Room Air 03/13/21 07:00 98.3 104 16 112/82 (92) 95 98.3 I & O 03/12/21 03/12/21 03/13/21 15:00 23:00 07:00 Intake Total 75 ml 100 ml Balance 75 ml 100 ml Physical Exam General: Alert, Oriented X3, No acute distress Heart: Regular rate, Normal S2 Lungs: Other (no accessory muscle use) Abdomen: Normal bowel sounds, No tenderness Extremities: No clubbing Skin: No rashes, Other (NEUROFIBROMA LESIONS) Labs Labs: Laboratory Tests Test 03/12/21 15:00 03/13/21 07:25 White Blood Count 5.7 x10^3/uL (4.0-11.0) Red Blood Count 3.56 x10^6/uL (3.50-5.40) Hemoglobin 10.2 g/dL (12.0-15.5) Hematocrit 31.0 % (36.0-47.0) Mean Corpuscular Volume 87 fL (79-100) Mean Corpuscular Hemoglobin 29 pg (25-35) Mean Corpuscular Hemoglobin Concent 33 g/dL (31-37) Red Cell Distribution Width 22.5 % (11.5-14.5) Platelet Count 436 x10^3/uL (140-400) Neutrophils (%) (Auto) 83 % (31-73) Lymphocytes (%) (Auto) 6 % (24-48) Monocytes (%) (Auto) 10 % (0-9) Eosinophils (%) (Auto) 0 % (0-3) Basophils (%) (Auto) 0 % (0-3) Neutrophils # (Auto) 4.8 x10^3/uL (1.8-7.7) Lymphocytes # (Auto) 0.4 x10^3/uL (1.0-4.8) Monocytes # (Auto) 0.6 x10^3/uL (0.0-1.1) Eosinophils # (Auto) 0.0 x10^3/uL (0.0-0.7) Basophils # (Auto) 0.0 x10^3/uL (0.0-0.2) Sodium Level 133 mmol/L (136-145) 132 mmol/L (136-145) Potassium Level 5.5 mmol/L (3.5-5.1) 4.9 mmol/L (3.5-5.1) Chloride Level 101 mmol/L (98-107) 99 mmol/L (98-107) Carbon Dioxide Level 21 mmol/L (21-32) 20 mmol/L (21-32) Anion Gap 11 (6-14) 13 (6-14) Blood Urea Nitrogen 35 mg/dL (7-20) 32 mg/dL (7-20) Creatinine 1.6 mg/dL (0.6-1.0) 1.5 mg/dL (0.6-1.0) Estimated GFR (Cockcroft-Gault) 42.2 45.4 Glucose Level 121 mg/dL (70-99) 95 mg/dL (70-99) Calcium Level 8.3 mg/dL (8.5-10.1) 7.4 mg/dL (8.5-10.1) BUN/Creatinine Ratio 21 (6-20) Total Bilirubin 0.3 mg/dL (0.2-1.0) Aspartate Amino Transf (AST/SGOT) 49 U/L (15-37) Alanine Aminotransferase (ALT/SGPT) 29 U/L (14-59) Alkaline Phosphatase 557 U/L (46-116) Total Protein 5.4 g/dL (6.4-8.2) Albumin 1.9 g/dL (3.4-5.0) Albumin/Globulin Ratio 0.5 (1.0-1.7) Assessment and Plan Assessmemt and Plan Problems Medical Problems: (1) Acute renal failure Status: Acute (2) Breast cancer Status: Acute (3) Dehydration Status: Acute (4) Pleural effusion, left Status: Acute Comment Review of Relevant I have reviewed the following items bryan (where applicable) has been applied. Medications: Current Medications Medications (Trade) Dose Ordered Sig/Susie Route PRN Reason Start Time Stop Time Status Last Admin Dose Admin Pantoprazole Sodium (Protonix) 40 mg DAILYAC PO 03/12/21 22:15 03/13/21 08:39 Justifications for Admission Other Justification SHIRA FLYNN MD Mar 13, 2021 11:06
[2021-03-13] MEDS: DRONABINOL 2.5 MG CAPSULE. PO SCH ×2 (11:46→16:50)
[2021-03-13] MEDS: ONDANSETRON ODT 4 MG TAB.RAPDIS. PO SCH ×2 (11:46→16:50)
--- NOTE | 2021-03-13 11:55 | PDOC ---
DATE OF SERVICE DATE: 03/13/21 TIME: 11:54 SUBJECTIVE ROS C/O nausea and vomiting, feeling reflux is severe. poor appetite, very weak. OBJECTIVE Vital Signs Vital Signs Date Time Temp Pulse Resp B/P (MAP) Pulse Ox O2 Delivery O2 Flow Rate FiO2 03/13/21 08:00 Room Air 03/13/21 07:00 98.3 104 16 112/82 (92) 95 98.3 I & 0 Intake and Output 03/13/21 07:00 Intake Total 175 ml Balance 175 ml Intake Oral 175 ml # Voids 1 PHYSICAL EXAM Physical Exam GEN: Awake, Oriented x [], In [] distress EYES: Vision Unchanged, Conjunctiva Normal EN: No EN Drainage, Mucous Membranes [] NECK: [] JVD, [] JVP, Supple, [] Thyromegaly CVS: S1S2, [] Murmur, No Gallop, No Rub,[] Edema RESP: [] Rales, [] Rhonchi,[] Acc. Muscle Use GI: BS + ve, NO Bruit, Non Tender, Non Distended : [] CVA tenderness, [] Suprapubic Tenderness DIAGNOSIS/ASSESSMENT Assessment & Plan BARTOLO -renal function improving , Cr 1.5<--3.8, Non Oliguric. UOP not recorded last 2 days . Maintain Hydration (c/0 Vomiting), Supportive care, Strict I/O , avoid Nephotoxins Intractable nausea and vomiting per primary HypoNatremia- Mild, Monitor COVID 19 On RA Large left sided pleural effusion /stage IV breast cancer. She had previously right-sided paramalignant pleural effusion, which required chest tube drainage. S/P s/p thoracentesis 03/10 1600 cc fluid evacutated pleural fluid for cytology and other analysis. Awaiting results. Plan for PleurX catheter. Stage IV breast cancer, Metastatic - Liver and bony mets currently on palliative chemo. Neurofibromatosis Failure to thrive, severe malnutrition COMMENT/RELEVANT DATA Meds Current Medications Medications (Trade) Dose Ordered Sig/Susie Start Time Stop Time Status Last Admin Dose Admin Acetaminophen (Tylenol) 650 mg PRN Q6HRS PRN 03/13/21 11:00 Calcium Carbonate/ Glycine (Tums) 1,000 mg PRN QID PRN 03/12/21 19:30 Cefazolin Sodium (Ancef) 1 gm 1X ONCE 03/10/21 14:15 03/10/21 14:34 DC Dexamethasone Sodium Phosphate (Decadron) 6 mg DAILY 03/11/21 10:15 03/13/21 08:39 6 MG Dronabinol (Marinol) 2.5 mg BIDACLD 03/13/21 11:30 03/13/21 11:46 2.5 MG Famotidine (Pepcid Vial) 20 mg 1X ONCE 03/09/21 20:30 03/09/21 20:31 DC 03/09/21 20:30 20 MG Fentanyl Citrate (Fentanyl 2ml Vial) 100 mcg 1X ONCE 03/10/21 14:15 03/10/21 14:34 DC Hydromorphone HCl (Dilaudid) 1 mg PRN Q6HRS PRN 03/11/21 17:15 03/11/21 17:37 1 MG Lidocaine HCl (Buffered Lidocaine 1%) 3 ml STK-MED ONCE 03/10/21 08:57 03/10/21 08:57 DC Lidocaine/ Epinephrine (LIDOCAINE 2%-EPI 1:100,000 multi-dose) 20 ml 1X ONCE 03/10/21 14:15 03/10/21 14:34 DC Metoclopramide HCl (Reglan Vial) 5 mg PRN Q6HRS PRN 03/13/21 11:00 Midazolam HCl (Versed) 2 mg 1X ONCE 03/10/21 14:15 03/10/21 14:34 DC Multi-Ingredient Mouthwash/Gargle (Gi Cocktail) 20 ml 1X ONCE 03/09/21 20:30 03/09/21 20:31 DC 03/09/21 20:30 20 ML Ondansetron HCl (Zofran Odt) 4 mg TIDBFRMEAL 03/13/21 11:30 03/13/21 11:46 4 MG Ondansetron HCl (Zofran) 8 mg PRN Q4HRS PRN 03/13/21 11:00 Oxycodone HCl (OxyCONTIN) 10 mg BID 03/11/21 21:00 03/13/21 08:39 10 MG Oxycodone HCl (Roxicodone) 5 mg PRN Q3HRS PRN 03/10/21 07:00 03/11/21 09:33 5 MG Oxycodone/ Acetaminophen (Percocet 10/325) 1 tab PRN Q6HRS PRN 03/11/21 17:15 03/12/21 19:56 1 TAB Pantoprazole Sodium (Protonix) 40 mg DAILYAC 03/12/21 22:15 03/13/21 08:39 40 MG Sodium Chloride 1,000 ml @ 100 mls/hr Q10H 03/09/21 22:00 03/10/21 21:59 DC 03/10/21 12:36 100 MLS/HR Lab Laboratory Tests Test 03/12/21 15:00 03/13/21 07:25 White Blood Count 5.7 x10^3/uL (4.0-11.0) Red Blood Count 3.56 x10^6/uL (3.50-5.40) Hemoglobin 10.2 g/dL (12.0-15.5) Hematocrit 31.0 % (36.0-47.0) Mean Corpuscular Volume 87 fL (79-100) Mean Corpuscular Hemoglobin 29 pg (25-35) Mean Corpuscular Hemoglobin Concent 33 g/dL (31-37) Red Cell Distribution Width 22.5 % (11.5-14.5) Platelet Count 436 x10^3/uL (140-400) Neutrophils (%) (Auto) 83 % (31-73) Lymphocytes (%) (Auto) 6 % (24-48) Monocytes (%) (Auto) 10 % (0-9) Eosinophils (%) (Auto) 0 % (0-3) Basophils (%) (Auto) 0 % (0-3) Neutrophils # (Auto) 4.8 x10^3/uL (1.8-7.7) Lymphocytes # (Auto) 0.4 x10^3/uL (1.0-4.8) Monocytes # (Auto) 0.6 x10^3/uL (0.0-1.1) Eosinophils # (Auto) 0.0 x10^3/uL (0.0-0.7) Basophils # (Auto) 0.0 x10^3/uL (0.0-0.2) Sodium Level 133 mmol/L (136-145) 132 mmol/L (136-145) Potassium Level 5.5 mmol/L (3.5-5.1) 4.9 mmol/L (3.5-5.1) Chloride Level 101 mmol/L (98-107) 99 mmol/L (98-107) Carbon Dioxide Level 21 mmol/L (21-32) 20 mmol/L (21-32) Anion Gap 11 (6-14) 13 (6-14) Blood Urea Nitrogen 35 mg/dL (7-20) 32 mg/dL (7-20) Creatinine 1.6 mg/dL (0.6-1.0) 1.5 mg/dL (0.6-1.0) Estimated GFR (Cockcroft-Gault) 42.2 45.4 Glucose Level 121 mg/dL (70-99) 95 mg/dL (70-99) Calcium Level 8.3 mg/dL (8.5-10.1) 7.4 mg/dL (8.5-10.1) BUN/Creatinine Ratio 21 (6-20) Total Bilirubin 0.3 mg/dL (0.2-1.0) Aspartate Amino Transf (AST/SGOT) 49 U/L (15-37) Alanine Aminotransferase (ALT/SGPT) 29 U/L (14-59) Alkaline Phosphatase 557 U/L (46-116) Total Protein 5.4 g/dL (6.4-8.2) Albumin 1.9 g/dL (3.4-5.0) Albumin/Globulin Ratio 0.5 (1.0-1.7) Results All relevant outside records, renal labs, imaging studies, telemetry/EKG's were reviewed. Justicifation of Admission Dx: Justifications for Admission: Justification of Admission Dx: N/A JAQUELINE FERNANDEZ MD Mar 13, 2021 11:55
--- NOTE | 2021-03-13 12:19 | NUR ---
SW following. Discussed with RN, pt from home with sister, room air, regular diet, COVID-19 positive. Pt not medically ready for discharge. SW will continue to follow.
[2021-03-13 19:00] VITALS: BP 120/88
[2021-03-13 23:00] VITALS: BP 134/98
[2021-03-14 03:00] VITALS: BP 110/83
[2021-03-14 03:58] LABS: CALCIUM 8.4 mg/dL (8.5-10.1); CREATININE 1.5 mg/dL (0.6-1.0); GFR 45.4; POTASSIUM 5.2 mmol/L (3.5-5.1)
[2021-03-14 07:00] VITALS: BP 137/97
[2021-03-14] MEDS: DRONABINOL 2.5 MG CAPSULE. PO SCH ×2 (07:58→15:40)
[2021-03-14] MEDS: ONDANSETRON ODT 4 MG TAB.RAPDIS. PO SCH ×4 (07:58→15:40)
[2021-03-14] MEDS: DEXAMETHASONE SOD PHOS 4 MG/ML VIAL IVP SCH (07:58)
[2021-03-14] MEDS: PANTOPRAZOLE 40 MG TABLET.DR. PO SCH (07:59)
[2021-03-14] MEDS: oxyCODONE ER 10 MG TAB.ER.12H PO SCH (07:59)
[2021-03-14] MEDS ORDERED: PIP/TAZO PER PHARMACY MC PRN (10:30)
--- NOTE | 2021-03-14 10:35 | PDOC ---
PULMONARY PROGRESS NOTES DATE: 03/14/21 TIME: 10:30 Subjective Resting comfortably, feeling better, on room air, denies significant pain, would like to discharge home. Vitals Vital Signs Date Time Temp Pulse Resp B/P (MAP) Pulse Ox O2 Delivery O2 Flow Rate FiO2 03/14/21 07:59 18 91 Room Air 03/14/21 03:00 98.8 104 110/83 (92) 98.8 General: Alert HEENT: Other (nc at) Lungs: Other (no accessory muscle use) Cardiovascular: S1, S2 Extremities: No Edema Skin: No Rashes Labs Laboratory Tests Test 03/12/21 15:00 03/13/21 07:25 03/14/21 03:05 White Blood Count 5.7 x10^3/uL (4.0-11.0) Red Blood Count 3.56 x10^6/uL (3.50-5.40) Hemoglobin 10.2 g/dL (12.0-15.5) Hematocrit 31.0 % (36.0-47.0) Mean Corpuscular Volume 87 fL (79-100) Mean Corpuscular Hemoglobin 29 pg (25-35) Mean Corpuscular Hemoglobin Concent 33 g/dL (31-37) Red Cell Distribution Width 22.5 % (11.5-14.5) Platelet Count 436 x10^3/uL (140-400) Neutrophils (%) (Auto) 83 % (31-73) Lymphocytes (%) (Auto) 6 % (24-48) Monocytes (%) (Auto) 10 % (0-9) Eosinophils (%) (Auto) 0 % (0-3) Basophils (%) (Auto) 0 % (0-3) Neutrophils # (Auto) 4.8 x10^3/uL (1.8-7.7) Lymphocytes # (Auto) 0.4 x10^3/uL (1.0-4.8) Monocytes # (Auto) 0.6 x10^3/uL (0.0-1.1) Eosinophils # (Auto) 0.0 x10^3/uL (0.0-0.7) Basophils # (Auto) 0.0 x10^3/uL (0.0-0.2) Sodium Level 133 mmol/L (136-145) 132 mmol/L (136-145) 135 mmol/L (136-145) Potassium Level 5.5 mmol/L (3.5-5.1) 4.9 mmol/L (3.5-5.1) 5.2 mmol/L (3.5-5.1) Chloride Level 101 mmol/L (98-107) 99 mmol/L (98-107) 100 mmol/L (98-107) Carbon Dioxide Level 21 mmol/L (21-32) 20 mmol/L (21-32) 21 mmol/L (21-32) Anion Gap 11 (6-14) 13 (6-14) 14 (6-14) Blood Urea Nitrogen 35 mg/dL (7-20) 32 mg/dL (7-20) 35 mg/dL (7-20) Creatinine 1.6 mg/dL (0.6-1.0) 1.5 mg/dL (0.6-1.0) 1.5 mg/dL (0.6-1.0) Estimated GFR (Cockcroft-Gault) 42.2 45.4 45.4 Glucose Level 121 mg/dL (70-99) 95 mg/dL (70-99) 79 mg/dL (70-99) Calcium Level 8.3 mg/dL (8.5-10.1) 7.4 mg/dL (8.5-10.1) 8.4 mg/dL (8.5-10.1) BUN/Creatinine Ratio 21 (6-20) Total Bilirubin 0.3 mg/dL (0.2-1.0) Aspartate Amino Transf (AST/SGOT) 49 U/L (15-37) Alanine Aminotransferase (ALT/SGPT) 29 U/L (14-59) Alkaline Phosphatase 557 U/L (46-116) Total Protein 5.4 g/dL (6.4-8.2) Albumin 1.9 g/dL (3.4-5.0) Albumin/Globulin Ratio 0.5 (1.0-1.7) Laboratory Tests Test 03/14/21 03:05 Sodium Level 135 mmol/L (136-145) Potassium Level 5.2 mmol/L (3.5-5.1) Chloride Level 100 mmol/L (98-107) Carbon Dioxide Level 21 mmol/L (21-32) Anion Gap 14 (6-14) Blood Urea Nitrogen 35 mg/dL (7-20) Creatinine 1.5 mg/dL (0.6-1.0) Estimated GFR (Cockcroft-Gault) 45.4 Glucose Level 79 mg/dL (70-99) Calcium Level 8.4 mg/dL (8.5-10.1) Medications Active Scripts Medications Dose Route/Sig Max Daily Dose Days Date Category Percocet 10-325 Mg Tablet (Oxycodone/Acetaminophen) 1 Each Tablet 1 Tab PO PRN Q6HRS PRN 30 01/05/21 Rx Oxycontin (Oxycodone HCl) 10 Mg Tab.er.12h 1 Tab PO BID MDD 2 Tablet(s) 01/05/21 Rx Amlodipine Besylate 5 Mg Tablet Unknown Dose PO DAILY 12/29/20 Reported Meloxicam 7.5 Mg Tablet Unknown Dose PO DAILY 12/29/20 Reported Ferrous Sulfate 325 Mg Tablet 1 Tab PO DAILY 10/16/13 Reported Impression . IMPRESSION: 1. Large left sided pleural effusion in a patient who has a stage IV breast cancer. She had previously right-sided paramalignant pleural effusion, which required chest tube drainage. The left effusion is likely malignant. Dr. Harris and initially ordered a left chest tube placement. I recommended that we should proceed with PleurX catheter. The patient is agreeable to that. Awaiting fluid pathology report. 2. The patient with stage IV breast cancer, currently on palliative chemo. 3. Neurofibromatosis. 4. Leukopenia, likely related to chemo Plan . RECOMMENDATIONS: 1. 02 titration to keep sat 90% 6 min walk at [place] 2. s/p thoracentesis 03/10 1600 cc fluid evacutated Exudative pleural fluid. add PO Abx 3. Follow Oncology recommendation. 4. chest x-rays in am 5. covid + pleurex on hold for now 6. We will follow along with you. 7. OK with [place] home and f/u with BLANK Wells MD Mar 14, 2021 10:35
[2021-03-14 11:00] VITALS: BP 139/99
[2021-03-14] MEDS ORDERED: PIPERACILLIN/TAZOBACTAM 3.375 GM in IV NORMAL SALINE 50ML 50 ML IV SCH (11:30)
[2021-03-14] MEDS: ONDANSETRON PF 4 MG/2 ML VIAL. IVP PRN (11:52)
--- NOTE | 2021-03-14 12:57 | NUR ---
SS following up with discharge planning. SS reviewed pt chart and discussed with pt RN. Pt is currently on room air. COVID19 positive. Pt on IV Decadron. PT recommended home with home healthcare. Pt has [facility] Medicaid. SS will continue to follow for discharge planning.
[2021-03-14] MEDS: DOXYCYCLINE HYCLATE 100 MG TABLET PO SCH ×3 (13:39→20:43)
--- NOTE | 2021-03-14 14:14 | PDOC ---
[employer] PROGRESS NOTE Date of Service DOS: DATE: 03/14/21 TIME: 14:13 Chief Complaint Chief Complaint COVID 19, pleural effusion, LEft, malignant, recurrent from 2 months ago. Acute renal failure, ATN and vasomotor, hydrate, consult renal check UA, renal US Metastatic breast cancer - liver and bony mets Normocytic anemia Neutropenia secondary to antineoplastic therapy Malignant pleural effusion Failure to thrive, severe malnutrition weakness and debility neurofibomatosis 2 Intractable nausea and vomiting - increase zofran, schedule with meals, add dronabinol/marinol History of Present Illness History of Present Illness 03/12: she is still very weak and feels unable to go home,l pain better, her home pain meds restarted, she is interested in hospice care, she wants to talk to her Oncologist, Dr. Rascon at . Discussed with sister yesterday 03/13: Chest radiograph with bibasilar consolidative changes, pleural effusion improved. She has significant nausea and vomiting today, feeling reflux is severe as well. Low appetite, very weak. Na 132. 03/14: Still with nausea and vomiting especially with meds and worsening back pain. She was unable to hold down her OxyContin. Discussed changing to 25 mcg fentanyl patch. She is amenable to this. Scheduled Zofran today. Vitals/I&O Vitals/I&O: Vital Signs Date Time Temp Pulse Resp B/P (MAP) Pulse Ox O2 Delivery O2 Flow Rate FiO2 03/14/21 08:00 Room Air 03/14/21 07:59 18 91 03/14/21 03:00 98.8 104 110/83 (92) 98.8 I & O 03/13/21 03/13/21 03/14/21 15:00 23:00 07:00 Intake Total 200 ml Output Total 300 ml Balance -100 ml Physical Exam General: Alert, Oriented X3, No acute distress Heart: Regular rate, Normal S2 Lungs: Other (no accessory muscle use) Abdomen: Normal bowel sounds, No tenderness Extremities: No clubbing Skin: No rashes, Other (NEUROFIBROMA LESIONS) Labs Labs: Laboratory Tests Test 03/14/21 03:05 Sodium Level 135 mmol/L (136-145) Potassium Level 5.2 mmol/L (3.5-5.1) Chloride Level 100 mmol/L (98-107) Carbon Dioxide Level 21 mmol/L (21-32) Anion Gap 14 (6-14) Blood Urea Nitrogen 35 mg/dL (7-20) Creatinine 1.5 mg/dL (0.6-1.0) Estimated GFR (Cockcroft-Gault) 45.4 Glucose Level 79 mg/dL (70-99) Calcium Level 8.4 mg/dL (8.5-10.1) Assessment and Plan Assessmemt and Plan Problems Medical Problems: (1) Acute renal failure Status: Acute (2) Breast cancer Status: Acute (3) Dehydration Status: Acute (4) Pleural effusion, left Status: Acute Comment Review of Relevant I have reviewed the following items bryan (where applicable) has been applied. Medications: Current Medications Medications (Trade) Dose Ordered Sig/Susie Route PRN Reason Start Time Stop Time Status Last Admin Dose Admin Piperacillin Sod/ Tazobactam Sod 3.375 gm/Sodium Chloride 50 ml @ 100 mls/hr Q6HRS IV 03/14/21 11:30 03/14/21 11:55 DC 03/14/21 11:42 Doxycycline Hyclate (Vibra-Tab) 100 mg BID PO 03/14/21 12:00 03/14/21 13:39 Justifications for Admission Other Justification SHIRA FLYNN MD Mar 14, 2021 14:14
[2021-03-14] MEDS ORDERED: fentaNYL 25MCG/HR PATCH 1 PATCH PATCH.TD72 TD SCH (14:30)
[2021-03-14 15:00] VITALS: BP 120/95
[2021-03-14] MEDS: LIDOCAINE (700MG/PATCH) PATCH. TD SCH (15:45)
--- NOTE | 2021-03-14 16:18 | PDOC ---
DATE OF SERVICE DATE: 03/14/21 TIME: 16:15 SUBJECTIVE ROS Still c/o nausea and Vomiting OBJECTIVE Vital Signs Vital Signs Date Time Temp Pulse Resp B/P (MAP) Pulse Ox O2 Delivery O2 Flow Rate FiO2 03/14/21 15:44 20 97 Room Air 03/14/21 15:00 98.7 108 120/95 (103) 98.7 I & 0 Intake and Output 03/14/21 07:00 Intake Total 200 ml Output Total 300 ml Balance -100 ml Intake Oral 200 ml Output Urine Total 300 ml # Voids 1 PHYSICAL EXAM Physical Exam General: Alert HEENT: Other (nc at) Lungs: Other (no accessory muscle use) Cardiovascular: S1, S2 Extremities: No Edema Skin: No Rashes DIAGNOSIS/ASSESSMENT Assessment & Plan BARTOLO -renal function improving , Cr 1.5<--3.8, Non Oliguric. UOP not recorded last 2 days . Maintain Hydration Supportive care, Strict I/O , avoid Nephotoxins HypoNatremia- Mild, Monitor COVID 19 On RA Large left sided pleural effusion /stage IV breast cancer. She had previously right-sided paramalignant pleural effusion, which required chest tube drainage. S/P s/p thoracentesis 03/10 1600 cc fluid evacutated pleural fluid for cytology and other analysis. Awaiting results. Plan for PleurX catheter. Stage IV breast cancer, Metastatic - Liver and bony mets currently on palliative chemo. Neurofibromatosis Failure to thrive, severe malnutrition COMMENT/RELEVANT DATA Meds Current Medications Medications (Trade) Dose Ordered Sig/Susie Start Time Stop Time Status Last Admin Dose Admin Acetaminophen (Tylenol) 650 mg PRN Q6HRS PRN 03/13/21 11:00 Calcium Carbonate/ Glycine (Tums) 1,000 mg PRN QID PRN 03/12/21 19:30 Cefazolin Sodium (Ancef) 1 gm 1X ONCE 03/10/21 14:15 03/10/21 14:34 DC Dexamethasone Sodium Phosphate (Decadron) 6 mg DAILY 03/11/21 10:15 03/14/21 07:58 6 MG Doxycycline Hyclate (Vibra-Tab) 100 mg BID 03/14/21 12:00 03/14/21 13:39 100 MG Dronabinol (Marinol) 2.5 mg BIDACLD 03/13/21 11:30 03/14/21 15:40 2.5 MG Famotidine (Pepcid Vial) 20 mg 1X ONCE 03/09/21 20:30 03/09/21 20:31 DC 03/09/21 20:30 20 MG Fentanyl (Duragesic 25mcg/ Hr Patch) 1 patch Q3DAYS 03/14/21 14:30 03/14/21 15:44 1 PATCH Fentanyl Citrate (Fentanyl 2ml Vial) 100 mcg 1X ONCE 03/10/21 14:15 03/10/21 14:34 DC Hydromorphone HCl (Dilaudid) 1 mg PRN Q6HRS PRN 03/11/21 17:15 03/11/21 17:37 1 MG Lidocaine (Lidoderm) 1 patch DAILY 03/14/21 14:30 03/14/21 15:45 1 PATCH Lidocaine HCl (Buffered Lidocaine 1%) 3 ml STK-MED ONCE 03/10/21 08:57 03/10/21 08:57 DC Lidocaine/ Epinephrine (LIDOCAINE 2%-EPI 1:100,000 multi-dose) 20 ml 1X ONCE 03/10/21 14:15 03/10/21 14:34 DC Metoclopramide HCl (Reglan Vial) 5 mg PRN Q6HRS PRN 03/13/21 11:00 Midazolam HCl (Versed) 2 mg 1X ONCE 03/10/21 14:15 03/10/21 14:34 DC Miscellaneous (Lidoderm Patch Removal) 1 ea QHS 03/14/21 21:00 Multi-Ingredient Mouthwash/Gargle (Gi Cocktail) 20 ml 1X ONCE 03/09/21 20:30 03/09/21 20:31 DC 03/09/21 20:30 20 ML Ondansetron HCl (Zofran Odt) 4 mg TIDBFRMEAL 03/13/21 11:30 03/14/21 15:40 4 MG Ondansetron HCl (Zofran) 8 mg PRN Q4HRS PRN 03/13/21 11:00 03/14/21 11:52 8 MG Oxycodone HCl (OxyCONTIN) 10 mg BID 03/11/21 21:00 03/14/21 14:14 DC 03/14/21 07:59 10 MG Oxycodone HCl (Roxicodone) 5 mg PRN Q3HRS PRN 03/10/21 07:00 03/11/21 09:33 5 MG Oxycodone/ Acetaminophen (Percocet 10/325) 1 tab PRN Q6HRS PRN 03/11/21 17:15 03/12/21 19:56 1 TAB Pantoprazole Sodium (Protonix) 40 mg DAILYAC 03/12/21 22:15 03/14/21 07:59 40 MG Piperacillin Sod/ Tazobactam Sod (Zosyn Per Pharmacy) 1 each PRN DAILY PRN 03/14/21 10:30 03/14/21 15:04 DC Piperacillin Sod/ Tazobactam Sod 3.375 gm/Sodium Chloride 50 ml @ 100 mls/hr Q6HRS 03/14/21 11:30 03/14/21 11:55 DC 03/14/21 11:42 100 MLS/HR Sodium Chloride 1,000 ml @ 100 mls/hr Q10H 03/09/21 22:00 03/10/21 21:59 DC 03/10/21 12:36 100 MLS/HR Lab Laboratory Tests Test 03/14/21 03:05 Sodium Level 135 mmol/L (136-145) Potassium Level 5.2 mmol/L (3.5-5.1) Chloride Level 100 mmol/L (98-107) Carbon Dioxide Level 21 mmol/L (21-32) Anion Gap 14 (6-14) Blood Urea Nitrogen 35 mg/dL (7-20) Creatinine 1.5 mg/dL (0.6-1.0) Estimated GFR (Cockcroft-Gault) 45.4 Glucose Level 79 mg/dL (70-99) Calcium Level 8.4 mg/dL (8.5-10.1) Results All relevant outside records, renal labs, imaging studies, telemetry/EKG's were reviewed. Justicifation of Admission Dx: Justifications for Admission: Justification of Admission Dx: N/A JAQUELINE FERNANDEZ MD Mar 14, 2021 16:18
[2021-03-14 19:00] VITALS: BP 136/99
[2021-03-14] MEDS: PATCH REMOVAL. MC SCH (20:38)
[2021-03-14 23:00] VITALS: BP 132/88
[2021-03-15] MEDS: ONDANSETRON PF 4 MG/2 ML VIAL. IVP PRN (00:35)
[2021-03-15] MEDS: HYDROmorphone 2 MG/ML INJ. IVP PRN ×3 (02:49→18:10)
[2021-03-15 03:00] VITALS: BP 121/93
[2021-03-15 07:00] VITALS: BP 118/90
[2021-03-15] MEDS: PANTOPRAZOLE 40 MG TABLET.DR. PO SCH (07:38)
[2021-03-15] MEDS: ONDANSETRON ODT 4 MG TAB.RAPDIS. PO SCH ×3 (07:38→17:39)
[2021-03-15 07:47] LABS: CALCIUM 8.3 mg/dL (8.5-10.1); CREATININE 1.2 mg/dL (0.6-1.0); GFR 58.8; POTASSIUM 3.9 mmol/L (3.5-5.1)
[2021-03-15] MEDS: LIDOCAINE (700MG/PATCH) PATCH. TD SCH (08:31)
[2021-03-15] MEDS: DEXAMETHASONE SOD PHOS 4 MG/ML VIAL IVP SCH (08:31)
[2021-03-15] MEDS: DOXYCYCLINE HYCLATE 100 MG TABLET PO SCH ×2 (08:31→19:59)
[2021-03-15 11:00] VITALS: BP 131/92
--- NOTE | 2021-03-15 11:29 | PDOC ---
PULMONARY PROGRESS NOTES DATE: 03/15/21 TIME: 11:27 Subjective Resting comfortably, feeling better, on room air, denies significant pain, would like to discharge home. Vitals Vital Signs Date Time Temp Pulse Resp B/P (MAP) Pulse Ox O2 Delivery O2 Flow Rate FiO2 03/15/21 08:00 Room Air 03/15/21 07:00 97.9 121 16 118/90 (99) 97 97.9 General: Alert HEENT: Other (nc at) Lungs: Other (no accessory muscle use) Cardiovascular: S1, S2 Extremities: No Edema Skin: No Rashes Labs Laboratory Tests Test 03/14/21 03:05 03/15/21 06:50 Sodium Level 135 mmol/L (136-145) 135 mmol/L (136-145) Potassium Level 5.2 mmol/L (3.5-5.1) 3.9 mmol/L (3.5-5.1) Chloride Level 100 mmol/L (98-107) 101 mmol/L (98-107) Carbon Dioxide Level 21 mmol/L (21-32) 18 mmol/L (21-32) Anion Gap 14 (6-14) 16 (6-14) Blood Urea Nitrogen 35 mg/dL (7-20) 29 mg/dL (7-20) Creatinine 1.5 mg/dL (0.6-1.0) 1.2 mg/dL (0.6-1.0) Estimated GFR (Cockcroft-Gault) 45.4 58.8 Glucose Level 79 mg/dL (70-99) 80 mg/dL (70-99) Calcium Level 8.4 mg/dL (8.5-10.1) 8.3 mg/dL (8.5-10.1) Laboratory Tests Test 03/15/21 06:50 Sodium Level 135 mmol/L (136-145) Potassium Level 3.9 mmol/L (3.5-5.1) Chloride Level 101 mmol/L (98-107) Carbon Dioxide Level 18 mmol/L (21-32) Anion Gap 16 (6-14) Blood Urea Nitrogen 29 mg/dL (7-20) Creatinine 1.2 mg/dL (0.6-1.0) Estimated GFR (Cockcroft-Gault) 58.8 Glucose Level 80 mg/dL (70-99) Calcium Level 8.3 mg/dL (8.5-10.1) Medications Active Scripts Medications Dose Route/Sig Max Daily Dose Days Date Category Percocet 10-325 Mg Tablet (Oxycodone/Acetaminophen) 1 Each Tablet 1 Tab PO PRN Q6HRS PRN 30 01/05/21 Rx Oxycontin (Oxycodone HCl) 10 Mg Tab.er.12h 1 Tab PO BID MDD 2 Tablet(s) 01/05/21 Rx Amlodipine Besylate 5 Mg Tablet Unknown Dose PO DAILY 12/29/20 Reported Meloxicam 7.5 Mg Tablet Unknown Dose PO DAILY 30 12/29/20 Reported Ferrous Sulfate 325 Mg Tablet 1 Tab PO DAILY 10/16/13 Reported Impression . IMPRESSION: 1. Large left sided pleural effusion in a patient who has a stage IV breast cancer. She had previously right-sided paramalignant pleural effusion, which required chest tube drainage. The left effusion is likely malignant. Dr. Harris and initially ordered a left chest tube placement. I recommended that we should proceed with PleurX catheter. The patient is agreeable to that. Awaiting fluid pathology report. 2. The patient with stage IV breast cancer, currently on palliative chemo. 3. Neurofibromatosis. 4. Leukopenia, likely related to chemo Plan . RECOMMENDATIONS: 1. 02 titration to keep sat 90% 6 min walk at me 2. s/p thoracentesis 03/10 1600 cc fluid evacutated Exudative pleural fluid. add PO Abx 3. Follow Oncology recommendation. 4. P pl fl cytology 5. covid + pleurex on hold for now 6. We will follow along with you. 7. OK with me home and f/u with [facility] On[facility] BLANK RUDD MD Mar 15, 2021 11:29
--- NOTE | 2021-03-15 12:10 | PDOC ---
DATE OF SERVICE DATE: 03/15/21 TIME: 12:10 SUBJECTIVE ROS Resting comfortably, feeling better, on room air OBJECTIVE Vital Signs Vital Signs Date Time Temp Pulse Resp B/P (MAP) Pulse Ox O2 Delivery O2 Flow Rate FiO2 03/15/21 11:00 98.7 102 16 131/92 (105) 97 Room Air 98.7 I & 0 Intake and Output 03/15/21 07:00 Intake Total 480 ml Output Total 235 ml Balance 245 ml Intake Oral 480 ml Output Urine Total 100 ml Stool Total 0 ml Emesis 135 ml # Voids 2 PHYSICAL EXAM Physical Exam General: Alert HEENT: Other (nc at) Lungs: Other (no accessory muscle use) Cardiovascular: S1, S2 Extremities: No Edema Skin: No Rashes DIAGNOSIS/ASSESSMENT DIAGNOSIS/ASSESSMENT Assessment & Plan BARTOLO -renal function improving , Cr 1.2<--3.8, Non Oliguric. UOP not recorded last 2 days . Maintain Hydration Supportive care, Strict I/O , avoid Nephotoxins HypoNatremia- Mild, COVID 19 On RA Large left sided pleural effusion /stage IV breast cancer. She had previously right-sided paramalignant pleural effusion, which required chest tube drainage. S/P s/p thoracentesis 03/10 1600 cc fluid evacutated pleural fluid for cytology and other analysis. Awaiting results. Plan for PleurX catheter. Stage IV breast cancer, Metastatic - Liver and bony mets currently on palliative chemo. Neurofibromatosis Failure to thrive, severe malnutrition COMMENT/RELEVANT DATA Meds Current Medications Medications (Trade) Dose Ordered Sig/Susie Start Time Stop Time Status Last Admin Dose Admin Acetaminophen (Tylenol) 650 mg PRN Q6HRS PRN 03/13/21 11:00 Calcium Carbonate/ Glycine (Tums) 1,000 mg PRN QID PRN 03/12/21 19:30 Cefazolin Sodium (Ancef) 1 gm 1X ONCE 03/10/21 14:15 03/10/21 14:34 DC Dexamethasone Sodium Phosphate (Decadron) 6 mg DAILY 03/11/21 10:15 03/15/21 08:31 6 MG Doxycycline Hyclate (Vibra-Tab) 100 mg BID 03/14/21 12:00 03/15/21 08:31 100 MG Dronabinol (Marinol) 2.5 mg BIDACLD 03/13/21 11:30 03/14/21 15:40 2.5 MG Famotidine (Pepcid Vial) 20 mg 1X ONCE 03/09/21 20:30 03/09/21 20:31 DC 03/09/21 20:30 20 MG Fentanyl (Duragesic 25mcg/ Hr Patch) 1 patch Q3DAYS 03/14/21 14:30 03/14/21 15:44 1 PATCH Fentanyl Citrate (Fentanyl 2ml Vial) 100 mcg 1X ONCE 03/10/21 14:15 03/10/21 14:34 DC Hydromorphone HCl (Dilaudid) 1 mg PRN Q6HRS PRN 03/11/21 17:15 03/15/21 02:49 1 MG Lidocaine (Lidoderm) 1 patch DAILY 03/14/21 14:30 03/15/21 08:31 1 PATCH Lidocaine HCl (Buffered Lidocaine 1%) 3 ml STK-MED ONCE 03/10/21 08:57 03/10/21 08:57 DC Lidocaine/ Epinephrine (LIDOCAINE 2%-EPI 1:100,000 multi-dose) 20 ml 1X ONCE 03/10/21 14:15 03/10/21 14:34 DC Metoclopramide HCl (Reglan Vial) 5 mg PRN Q6HRS PRN 03/13/21 11:00 03/14/21 22:12 5 MG Midazolam HCl (Versed) 2 mg 1X ONCE 03/10/21 14:15 03/10/21 14:34 DC Miscellaneous (Lidoderm Patch Removal) 1 ea QHS 03/14/21 21:00 03/14/21 20:38 1 EA Multi-Ingredient Mouthwash/Gargle (Gi Cocktail) 20 ml 1X ONCE 03/09/21 20:30 03/09/21 20:31 DC 03/09/21 20:30 20 ML Ondansetron HCl (Zofran Odt) 4 mg TIDBFRMEAL 03/13/21 11:30 03/15/21 07:38 4 MG Ondansetron HCl (Zofran) 8 mg PRN Q4HRS PRN 03/13/21 11:00 03/15/21 00:35 8 MG Oxycodone HCl (OxyCONTIN) 10 mg BID 03/11/21 21:00 03/14/21 14:14 DC 03/14/21 07:59 10 MG Oxycodone HCl (Roxicodone) 5 mg PRN Q3HRS PRN 03/10/21 07:00 03/11/21 09:33 5 MG Oxycodone/ Acetaminophen (Percocet 10/325) 1 tab PRN Q6HRS PRN 03/11/21 17:15 03/12/21 19:56 1 TAB Pantoprazole Sodium (Protonix) 40 mg DAILYAC 03/12/21 22:15 03/15/21 07:38 40 MG Piperacillin Sod/ Tazobactam Sod (Zosyn Per Pharmacy) 1 each PRN DAILY PRN 03/14/21 10:30 03/14/21 15:04 DC Piperacillin Sod/ Tazobactam Sod 3.375 gm/Sodium Chloride 50 ml @ 100 mls/hr Q6HRS 03/14/21 11:30 03/14/21 11:55 DC 03/14/21 11:42 100 MLS/HR Sodium Chloride 1,000 ml @ 100 mls/hr Q10H 03/09/21 22:00 03/10/21 21:59 DC 03/10/21 12:36 100 MLS/HR Lab Laboratory Tests Test 03/15/21 06:50 Sodium Level 135 mmol/L (136-145) Potassium Level 3.9 mmol/L (3.5-5.1) Chloride Level 101 mmol/L (98-107) Carbon Dioxide Level 18 mmol/L (21-32) Anion Gap 16 (6-14) Blood Urea Nitrogen 29 mg/dL (7-20) Creatinine 1.2 mg/dL (0.6-1.0) Estimated GFR (Cockcroft-Gault) 58.8 Glucose Level 80 mg/dL (70-99) Calcium Level 8.3 mg/dL (8.5-10.1) Results All relevant outside records, renal labs, imaging studies, telemetry/EKG's were reviewed. Justicifation of Admission Dx: Justifications for Admission: Justification of Admission Dx: N/A JAQUELINE FERNANDEZ MD Mar 15, 2021 12:10
[2021-03-15] MEDS: DRONABINOL 2.5 MG CAPSULE. PO SCH ×2 (12:19→17:39)
[2021-03-15] MEDS: oxyCODONE/APAP 10/325 1 TAB TABLET PO PRN ×2 (12:19→19:59)
[2021-03-15 15:00] VITALS: BP 118/91
--- NOTE | 2021-03-15 16:17 | PDOC ---
[employer] PROGRESS NOTE Date of Service DOS: DATE: 03/15/21 TIME: 16:14 Chief Complaint Chief Complaint COVID 19, pleural effusion, LEft, malignant, recurrent from 2 months ago. Acute renal failure, ATN and vasomotor, hydrate, consult renal check UA, renal US Metastatic breast cancer - liver and bony mets Normocytic anemia Neutropenia secondary to antineoplastic therapy Malignant pleural effusion Failure to thrive, severe malnutrition weakness and debility neurofibomatosis 2 Intractable nausea and vomiting - increase zofran, schedule with meals, add dronabinol/marinol History of Present Illness History of Present Illness 03/12: she is still very weak and feels unable to go home,l pain better, her home pain meds restarted, she is interested in hospice care, she wants to talk to her Oncologist, Dr. Rascon at . Discussed with sister yesterday 03/13: Chest radiograph with bibasilar consolidative changes, pleural effusion improved. She has significant nausea and vomiting today, feeling reflux is severe as well. Low appetite, very weak. Na 132. 03/14: Still with nausea and vomiting especially with meds and worsening back pain. She was unable to hold down her OxyContin. Discussed changing to 25 mcg fentanyl patch. She is amenable to this. Scheduled Zofran today. 03/15: No further vomiting and still some nausea. Taking a little bit of p.o. Feels her pain is still not under control as well. Scheduled Zofran is helping a little bit Vitals/I&O Vitals/I&O: Vital Signs Date Time Temp Pulse Resp B/P (MAP) Pulse Ox O2 Delivery O2 Flow Rate FiO2 03/15/21 15:00 98.3 106 16 118/91 (100) 92 Room Air 98.3 I & O 03/14/21 03/14/21 03/15/21 15:00 23:00 07:00 Intake Total 360 ml 120 ml Output Total 80 ml 30 ml 125 ml Balance 280 ml 90 ml -125 ml Physical Exam General: Alert, Oriented X3, No acute distress Heart: Regular rate, Normal S2 Lungs: Other (no accessory muscle use) Abdomen: Normal bowel sounds, No tenderness Extremities: No clubbing Skin: No rashes, Other (NEUROFIBROMA LESIONS) Labs Labs: Laboratory Tests Test 03/15/21 06:50 Sodium Level 135 mmol/L (136-145) Potassium Level 3.9 mmol/L (3.5-5.1) Chloride Level 101 mmol/L (98-107) Carbon Dioxide Level 18 mmol/L (21-32) Anion Gap 16 (6-14) Blood Urea Nitrogen 29 mg/dL (7-20) Creatinine 1.2 mg/dL (0.6-1.0) Estimated GFR (Cockcroft-Gault) 58.8 Glucose Level 80 mg/dL (70-99) Calcium Level 8.3 mg/dL (8.5-10.1) Assessment and Plan Assessmemt and Plan Problems Medical Problems: (1) Acute renal failure Status: Acute (2) Breast cancer Status: Acute (3) Dehydration Status: Acute (4) Pleural effusion, left Status: Acute Comment Review of Relevant I have reviewed the following items bryan (where applicable) has been applied. Medications: Current Medications Medications (Trade) Dose Ordered Sig/Susie Route PRN Reason Start Time Stop Time Status Last Admin Dose Admin Miscellaneous (Lidoderm Patch Removal) 1 ea [facility] 03/14/21 21:00 03/14/21 20:38 Justifications for Admission Other Justification SHIRA FLYNN MD Mar 15, 2021 16:17
[2021-03-15 19:00] VITALS: BP 129/90
[2021-03-15] MEDS: PATCH REMOVAL. MC SCH (19:59)
[2021-03-15 23:40] VITALS: BP 114/89
[2021-03-16 03:00] VITALS: BP 127/91
[2021-03-16 07:00] VITALS: BP 120/94
[2021-03-16] MEDS: LIDOCAINE (700MG/PATCH) PATCH. TD SCH (08:22)
[2021-03-16] MEDS: DEXAMETHASONE SOD PHOS 4 MG/ML VIAL IVP SCH (08:22)
[2021-03-16] MEDS: ONDANSETRON ODT 4 MG TAB.RAPDIS. PO SCH ×2 (08:23→11:20)
[2021-03-16] MEDS: PANTOPRAZOLE 40 MG TABLET.DR. PO SCH (08:23)
[2021-03-16] MEDS: DOXYCYCLINE HYCLATE 100 MG TABLET PO SCH (08:23)
[2021-03-16] MEDS: oxyCODONE/APAP 10/325 1 TAB TABLET PO PRN (08:23)
--- NOTE | 2021-03-16 10:10 | PDOC ---
[employer] PROGRESS NOTE Date of Service DOS: DATE: 03/16/21 TIME: 10:05 Chief Complaint Chief Complaint COVID 19, pleural effusion, LEft, malignant, recurrent from 2 months ago. Acute renal failure, ATN and vasomotor, hydrate, consult renal check UA, renal US Metastatic breast cancer - liver and bony mets Normocytic anemia Neutropenia secondary to antineoplastic therapy Malignant pleural effusion Failure to thrive, severe malnutrition weakness and debility neurofibomatosis 2 Intractable nausea and vomiting - increase zofran, schedule with meals, add dronabinol/marinol History of Present Illness History of Present Illness 03/12: she is still very weak and feels unable to go home,l pain better, her home pain meds restarted, she is interested in hospice care, she wants to talk to her Oncologist, Dr. Rascon at . Discussed with sister yesterday 03/13: Chest radiograph with bibasilar consolidative changes, pleural effusion improved. She has significant nausea and vomiting today, feeling reflux is severe as well. Low appetite, very weak. Na 132. 03/14: Still with nausea and vomiting especially with meds and worsening back pain. She was unable to hold down her OxyContin. Discussed changing to 25 mcg fentanyl patch. She is amenable to this. Scheduled Zofran today. 03/15: No further vomiting and still some nausea. Taking a little bit of p.o. Feels her pain is still not under control as well. Scheduled Zofran is helping a little bit. 03/16: Vomiting resolved nausea improved. Pain is little better controlled tr ansition to fentanyl patch. Breathing is stable. Pleural fluid culture with no growth. Will have outpatient follow-up with Dr. Rascon at [facility] Vitals/I&O Vitals/I&O: Vital Signs Date Time Temp Pulse Resp B/P (MAP) Pulse Ox O2 Delivery O2 Flow Rate FiO2 03/16/21 09:19 Room Air 03/16/21 07:00 98.7 112 16 120/94 (103) 93 98.7 I & O 03/15/21 03/15/21 03/16/21 15:00 23:00 07:00 Intake Total 360 ml 120 ml Output Total 80 ml 50 ml Balance 280 ml 70 ml Physical Exam General: Alert, Oriented X3, No acute distress Heart: Regular rate, Normal S2 Lungs: Other (no accessory muscle use) Abdomen: Normal bowel sounds, No tenderness Extremities: No clubbing Skin: No rashes, Other (NEUROFIBROMA LESIONS) Assessment and Plan Assessmemt and Plan Problems Medical Problems: (1) Acute renal failure Status: Acute (2) Breast cancer Status: Acute (3) Dehydration Status: Acute (4) Pleural effusion, left Status: Acute Comment Review of Relevant I have reviewed the following items bryan (where applicable) has been applied. Justifications for Admission Other Justification SHIRA FLYNN MD Mar 16, 2021 10:10
[2021-03-16] MEDS ORDERED: DRON10CA5 PO (10:15)
[2021-03-16] MEDS ORDERED: FENT1PAT15 TD (10:15)
--- NOTE | 2021-03-16 10:18 | PDOC3 ---
Discharge Summary Visit Information Date of Admission: Mar 09, 2021 Date of Discharge: Mar 16, 2021 Admitting Diagnosis: Metastatic breast cancer, left pleural effusion, COVID19 Final Diagnosis Problems Medical Problems: (1) Acute renal failure Status: Acute (2) Breast cancer Status: Acute (3) Dehydration Status: Acute (4) Pleural effusion, left Status: Acute Brief Hospital Course Allergies Allergies Coded Allergies Type Severity Reaction Last Updated Verified No Known Drug Allergies 03/09/21 No Vital Signs Vital Signs Date Time Temp Pulse Resp B/P (MAP) Pulse Ox O2 Delivery O2 Flow Rate FiO2 03/16/21 09:19 Room Air 03/16/21 07:00 98.7 112 16 120/94 (103) 93 98.7 Lab Results Laboratory Tests Test 03/15/21 06:50 Sodium Level 135 mmol/L (136-145) Potassium Level 3.9 mmol/L (3.5-5.1) Chloride Level 101 mmol/L (98-107) Carbon Dioxide Level 18 mmol/L (21-32) Anion Gap 16 (6-14) Blood Urea Nitrogen 29 mg/dL (7-20) Creatinine 1.2 mg/dL (0.6-1.0) Estimated GFR (Cockcroft-Gault) 58.8 Glucose Level 80 mg/dL (70-99) Calcium Level 8.3 mg/dL (8.5-10.1) Brief Hospital Course Ms. Rodas is a 45 old [sex] who presented with [ ] Discharge Information Condition at Discharge: Improved Follow Up: Weeks (1) Disposition/Orders: D/C to Home Scheduled Dronabinol (Dronabinol) 10 Mg Capsule, 1 CAP PO BID for Chemo nausea MDD 2 Capsule(s) for 30 Days, #60 Ref 5 Prescribed by: SHIRA FLYNN MD on 03/16/21 1016 Fentanyl (FENTANYL 25mcg/hr) 1 Each Patch.td72, 1 PATCH TD Q3DAYS for Cancer pain for 30 Days, #10 Prescribed by: SHIRA FLYNN MD on 03/16/21 1016 Ferrous Sulfate (Ferrous Sulfate) 325 Mg Tablet, 1 TAB PO DAILY, #30 Ref 3 (Reported) Entered as Reported by: NAS KIDD on 10/16/13 0856 Last Taken: Unknown Dose on 03/08/21 Last Action: Last Taken Edited on 03/10/211952 by AIXA VALDOVINOS, FLORY Meloxicam (Meloxicam) 7.5 Mg Tablet, Unknown Dose PO DAILY for pain for 30 Days, Ref 0 (Reported) Entered as Reported by: Zander Morris on 12/29/202134 Last Taken: Unknown Dose on 03/09/21 Last Action: Last Taken Edited on 03/10/211952 by AIXA VALDOVINOS RN Scheduled PRN Oxycodone/Apap 10-325 (Percocet 10-325 Mg Tablet ) 1 Each Tablet, 1 TAB PO PRN Q6HRS PRN for PAIN for 30 Days, #120 Ref 0 Prescribed by: WATSON WHITE on 01/05/21835 Last Taken: Unknown Dose on 03/09/21 Last Action: Continued on 03/11/211718 by HUSEYIN CORNEJO, RN Discontinued Medications Amlodipine Besylate (Amlodipine Besylate) 5 Mg Tablet, Unknown Dose PO DAILY for BP, (Reported) Entered as Reported by: Zander Morris on 12/29/202134 Last Taken: Unknown Dose on 03/09/21 Last Action: Last Taken Edited on 03/10/211952 by AIXA VALDOVINOS RN Oxycodone HCl (Oxycontin) 10 Mg Tab.er.12h, 1 TAB PO BID for pain MDD 2 Tablet(s) for 30 Days, #60 Ref 0 Prescribed by: WATSON WHITE on 01/05/21835 Last Taken: Unknown Dose on 03/09/21 Last Action: Continued on 03/11/211718 by HUSEYIN CORNEJO, RN Justicifation of Admission Dx: Justifications for Admission: Justification of Admission Dx: N/A SHIRA FLYNN MD Mar 16, 2021 10:18
[2021-03-16 11:00] VITALS: BP 118/85
--- NOTE | 2021-03-16 11:12 | PDOC ---
DATE OF SERVICE DATE: 03/16/21 TIME: 11:10 SUBJECTIVE ROS Resting comfortably, feeling better, on room air No Vomiting OBJECTIVE Vital Signs Vital Signs Date Time Temp Pulse Resp B/P (MAP) Pulse Ox O2 Delivery O2 Flow Rate FiO2 03/16/21 09:19 Room Air 03/16/21 07:00 98.7 112 16 120/94 (103) 93 98.7 I & 0 Intake and Output 03/16/21 06:59 Intake Total 480 ml Output Total 130 ml Balance 350 ml Intake Oral 480 ml Emesis 130 ml # Voids 3 PHYSICAL EXAM Physical Exam General: Alert HEENT: Other (nc at) Lungs: Other (no accessory muscle use) Cardiovascular: S1, S2 Extremities: No Edema Skin: No Rashes DIAGNOSIS/ASSESSMENT Assessment & Plan BARTOLO -renal function improving , Cr 1.2<--3.8 (labs from 03/15 ) , Non Oliguric.Maintain Hydration Supportive care, Strict I/O , avoid Nephotoxins HypoNatremia- Mild, COVID 19 On RA Large left sided pleural effusion /stage IV breast cancer. She had previously right-sided paramalignant pleural effusion, which required chest tube drainage. S/P s/p thoracentesis 03/10 1600 cc fluid evacutated pleural fluid for cytology and other analysis. Awaiting results. Plan for PleurX catheter. Stage IV breast cancer, Metastatic - Liver and bony mets currently on palliative chemo. Neurofibromatosis DC per primary COMMENT/RELEVANT DATA Meds Current Medications Medications (Trade) Dose Ordered Sig/Susie Start Time Stop Time Status Last Admin Dose Admin Acetaminophen (Tylenol) 650 mg PRN Q6HRS PRN 03/13/21 11:00 Calcium Carbonate/ Glycine (Tums) 1,000 mg PRN QID PRN 03/12/21 19:30 Cefazolin Sodium (Ancef) 1 gm 1X ONCE 03/10/21 14:15 03/10/21 14:34 DC Dexamethasone Sodium Phosphate (Decadron) 6 mg DAILY 03/11/21 10:15 03/16/21 08:22 6 MG Doxycycline Hyclate (Vibra-Tab) 100 mg BID 03/14/21 12:00 03/16/21 08:23 100 MG Dronabinol (Marinol) 2.5 mg BIDACLD 03/13/21 11:30 03/15/21 17:39 2.5 MG Famotidine (Pepcid Vial) 20 mg 1X ONCE 03/09/21 20:30 03/09/21 20:31 DC 03/09/21 20:30 20 MG Fentanyl (Duragesic 25mcg/ Hr Patch) 1 patch Q3DAYS 03/14/21 14:30 03/14/21 15:44 1 PATCH Fentanyl Citrate (Fentanyl 2ml Vial) 100 mcg 1X ONCE 03/10/21 14:15 03/10/21 14:34 DC Hydromorphone HCl (Dilaudid) 1 mg PRN Q6HRS PRN 03/11/21 17:15 03/15/21 18:10 1 MG Lidocaine (Lidoderm) 1 patch DAILY 03/14/21 14:30 03/16/21 08:22 1 PATCH Lidocaine HCl (Buffered Lidocaine 1%) 3 ml STK-MED ONCE 03/10/21 08:57 03/10/21 08:57 DC Lidocaine/ Epinephrine (LIDOCAINE 2%-EPI 1:100,000 multi-dose) 20 ml 1X ONCE 03/10/21 14:15 03/10/21 14:34 DC Metoclopramide HCl (Reglan Vial) 5 mg PRN Q6HRS PRN 03/13/21 11:00 03/14/21 22:12 5 MG Midazolam HCl (Versed) 2 mg 1X ONCE 03/10/21 14:15 03/10/21 14:34 DC Miscellaneous (Lidoderm Patch Removal) 1 ea QHS 03/14/21 21:00 03/15/21 19:59 1 EA Multi-Ingredient Mouthwash/Gargle (Gi Cocktail) 20 ml 1X ONCE 03/09/21 20:30 03/09/21 20:31 DC 03/09/21 20:30 20 ML Ondansetron HCl (Zofran Odt) 4 mg TIDBFRMEAL 03/13/21 11:30 03/16/21 08:23 4 MG Ondansetron HCl (Zofran) 8 mg PRN Q4HRS PRN 03/13/21 11:00 03/15/21 00:35 8 MG Oxycodone HCl (OxyCONTIN) 10 mg BID 03/11/21 21:00 03/14/21 14:14 DC 03/14/21 07:59 10 MG Oxycodone HCl (Roxicodone) 5 mg PRN Q3HRS PRN 03/10/21 07:00 03/11/21 09:33 5 MG Oxycodone/ Acetaminophen (Percocet 10/325) 1 tab PRN Q6HRS PRN 03/11/21 17:15 03/16/21 08:23 1 TAB Pantoprazole Sodium (Protonix) 40 mg DAILYAC 03/12/21 22:15 03/16/21 08:23 40 MG Piperacillin Sod/ Tazobactam Sod (Zosyn Per Pharmacy) 1 each PRN DAILY PRN 03/14/21 10:30 03/14/21 15:04 DC Piperacillin Sod/ Tazobactam Sod 3.375 gm/Sodium Chloride 50 ml @ 100 mls/hr Q6HRS 03/14/21 11:30 03/14/21 11:55 DC 03/14/21 11:42 100 MLS/HR Sodium Chloride 1,000 ml @ 100 mls/hr Q10H 03/09/21 22:00 03/10/21 21:59 DC 03/10/21 12:36 100 MLS/HR Results All relevant outside records, renal labs, imaging studies, telemetry/EKG's were reviewed. Justicifation of Admission Dx: Justifications for Admission: Justification of Admission Dx: N/A JAQUELINE FERNANDEZ MD Mar 16, 2021 11:12
[2021-03-16] MEDS: DRONABINOL 2.5 MG CAPSULE. PO SCH (11:20)
--- NOTE | 2021-03-16 12:17 | NUR ---
SW following. Discussed with RN, discharge order for home with self care. RN advised no SW needs.
--- NOTE | 2021-03-16 14:43 | NUR ---
Discharge Note: PT DISCHARGED HOME WITH SELF CARE. PT LEFT FACILITY VIA PRIVATE VEHICLE WITH SISTER AT 1440. PT STABLE AND ALERT UPON DISCHARGE. PT PIV REMOVED FROM R HAND WITHOUT COMPLICATIONS, BANDAGE APPLIED. PT EDUCATED ABOUT DISCHARGE INSTRUCTIONS, DISCHARGE MEDICATIONS, AND FOLLOW-UP CARE INSTRUCTIONS, NO CONCERNS VOICED AT THIS TIME. PT LEFT WITH ALL PERSONAL BELONGINGS. AMMON RIVERA[facility] Discharge instructions and discharge home medications reviewed with Patient and a copy given. All questions have been answered and understanding verbalized.
== END 2021-03-16 14:45 | disposition home or self-care (01) | DRG 871 ==
LOC: ER 19:14 → 5 SOUTH 21:20
PROVIDERS: ADMIT Internal Medicine; ATTEND Internal Medicine
PROC: 0W9B3ZZ Drainage of Left Pleural Cavity, Percutaneous Approach (ICD-10-PCS; principal; 2021-03-10)
DX: A41.9 Sepsis, unspecified organism (principal); U07.1 COVID-19; N17.0 Acute kidney failure with tubular necrosis; E43 Unspecified severe protein-calorie malnutrition; G93.41 Metabolic encephalopathy; J91.0 Malignant pleural effusion; C79.9 Secondary malignant neoplasm of unspecified site; J98.11 Atelectasis; R18.8 Other ascites; C79.51 Secondary malignant neoplasm of bone; E87.1 Hypo-osmolality and hyponatremia; C50.912 Malignant neoplasm of unspecified site of left female breast; D64.9 Anemia, unspecified; D70.9 Neutropenia, unspecified; E86.0 Dehydration; K21.9 Gastro-esophageal reflux disease without esophagitis; K59.00 Constipation, unspecified; Q85.00 Neurofibromatosis, unspecified; R62.7 Adult failure to thrive; T45.1X5A Adverse effect of antineoplastic and immunosuppressive drugs, initial encounter; Z85.3 Personal history of malignant neoplasm of breast; Z87.891 Personal history of nicotine dependence
CPT/HCPCS: 32555; 36415; 71045; 74021; 76770; 80048; 80053; 81001; 83615; 83690; 83735; 84157; 85007; 85025; 85610; 87071; 87075; 87426; 88112; 88305; 96361; 96374; J1100; J1170; J2405; J2543; J2765; J3490; J7030; J7040; U0003; U0005; 97116-GP; 99285-25; G0378; Q0167